=== PATIENT | female | born 1945 | race Caucasian/White ===

== ENCOUNTER 2017-03-24 06:15 | Day surgery (SDC) | payer MEDICARE, BC ==
[2017-03-17 16:02] VITALS: BMI 27.7
[~2017-03-24 06:15] MED LIST: LACTATED RINGERS 1,000 ML IV SCH
[2017-03-24] MEDS: PHENYLEPHRINE 10% OPHTH DROPS 5 ML BTL OP ONE ×3 (06:21→06:33)
[2017-03-24] MEDS: CYCLOPENTOLATE 1% OPHTH SOLN 2 ML BTL OP ONE ×3 (06:23→06:35)
[2017-03-24] MEDS: KETOROLAC 0.5% OPHTH DROPS 5 ML BTL OP ONE ×3 (06:25→06:38)
[2017-03-24 06:38] VITALS: RESP 16; TEMP 97.9
[2017-03-24] MEDS ORDERED: LIDOCAINE 1% 20 ML VIAL (10MG/ML) FOR IV START INTRADERMA ONE (06:50)
[2017-03-24] MEDS ORDERED: PROPOFOL 10 MG/ML 20 ML VIAL IV ONE (07:28)
[2017-03-24] MEDS ORDERED: BALANCED SALT IRRIG SOLN COMB2 15 ML IRRIG.SOLN IRRIGATION ONE (07:39)
[2017-03-24] MEDS ORDERED: HYALURONATE SODIUM INTRAOCULAR 1 EACH SYRINGE (10MG/ML) INTRAOCULA ONE (07:40)
[2017-03-24] MEDS ORDERED: EPINEPHrine (PF) 0.5 ML in BALANCED SALT IRRIG SOLN COMB2 500 ML IRRIGATION ONE (07:41)
[2017-03-24] MEDS ORDERED: TIMOLOL 0.5% OPHTH SOLN (PF) 0.2 ML DROPERETTE LEFT EYE ONE (07:42)
[2017-03-24 08:16] VITALS: BP 155/85; PULSE 64
--- NOTE | 2017-03-24 08:22 | P.OP ---
Date of Procedure: 03/24/17 Procedure(s) Performed: PREOPERATIVE DIAGNOSIS: Cataract, left eye. POSTOPERATIVE DIAGNOSIS: Cataract, left eye. OPERATION: Phacoemulsification cataract, left eye. DESCRIPTION OF PROCEDURE: The patient was taken to the preoperative holding area. Intravenous Propofol was given so as to bring about adequate sedation. The following mixture was given for local anesthesia: 5 mL of 2% lidocaine, 5 mL of 0.75% Marcaine, and 1 mL of Wydase. Approximately 4 mL was injected in the retrobulbar space of the surgical eye. Additional 1 mL was then directed to the temporal area of the surgical eye. This was performed to allow adequate neurological block of the facial muscles. The patient was revived and then taken into the operative room. The patient was prepped and draped in the usual sterile manner for the operative eye. A lid speculum was put into position. The conjunctiva was resected back from the limbus in the 12 o'clock position. Bleeding was controlled with electrocautery. A #69 blade was then used and a half-thickness scleral incision approximately 1-mm posterior to the limbus was made on bare sclera. This was shelved in the clear cornea using a crescent knife. Next a 15-degree blade was used to make a stab incision at the 3 o' clock position at the corneolimbal interface. Keratome blade was then used and the superior wound was extended into the anterior chamber. Viscoelastic was injected into the anterior chamber and to maintain its form. Next, a cystotome was used and a continuous anterior capsulotomy was made without difficulty. Hydrodissection using a blunt cannula and BSS was performed. Phaco probe was then employed and a groove extending from 12 to 6 o'clock in the lens was created. A Juliano wand was used through the stab incision so as to perform a divide and conquer technique. Next an irrigation aspiration probe was utilized and any residual cortex was removed from the eye. Again, viscoelastic was injected into the anterior chamber. An Carlos posterior chamber lens implant was placed in the cartridge and injected into the anterior chamber without difficulty. The SinMT DIGITAL MEDIAey hook was utilized to spin the lens into position and this was again performed without any difficulty. The irrigation and aspiration probe was again employed and any residual viscoelastic was removed from the eye. Then BSS was injected into the limbal stab incision and the anterior chamber re-inflated. The conjunctiva was reapproximated using electrocautery. One drop of 0.25% Timoptic was placed over the corneal along with TobraDex ophthalmic ointment. Two sterile patches and a Peter eye shield were taped into position. The patient was transported to the recovery room in stable condition. Pathology: none sent Condition: stable Disposition: same day
[2017-03-24] MEDS ORDERED: BUPIVACAINE (PF) 0.75% 5 ML, LIDOCAINE 4% (PF) 5 ML, HYALURONIDASE, HUMAN RECOMB 150 UNIT MISCELLANE ONE ×3 (23:00)
[2017-03-24] MEDS ORDERED: TIMOLOL 0.5% OPHTH SOLN (PF) 0.2 ML DROPERETTE OP ONE (23:00)
[2017-03-24] MEDS ORDERED: GENTAMICIN/PREDNISOL AC OPHTH OINT 3.5GM OPHTHALMIC ONE (23:00)
== END 2017-03-24 08:39 | disposition home or self-care (01) ==
LOC: OR 06:15
PROVIDERS: ATTEND Ophthalmology
DX: H26.9 Unspecified cataract (principal); I10 Essential (primary) hypertension; E78.5 Hyperlipidemia, unspecified; K21.9 Gastro-esophageal reflux disease without esophagitis; Z88.1 Allergy status to other antibiotic agents; Z88.2 Allergy status to sulfonamides; Z79.899 Other long term (current) drug therapy
CPT/HCPCS: 66984; V2632; J2001; J3470; J0171; J2704

== ENCOUNTER → 2017-04-13 | Outpatient (CLI) | payer MEDICARE, BC ==
--- NOTE | 2017-04-15 11:06 | MM ---
Reason for exam: screening (asymptomatic). Last mammogram was performed 1 year ago. History: Patient is postmenopausal. Family history of premenopausal breast cancer in mother. 2 excisional biopsies of the left breast. Excisional biopsy of the right breast. Took estrogen for 18 years. Physical Findings: A clinical breast exam by your physician is recommended on an annual basis and results should be correlated with mammographic findings. MG 3D Screening Mammo W/Cad Bilateral CC and MLO view(s) were taken. Prior study comparison: April 01, 2016, bilateral MG 3d screening mammo w/cad. March 26, 2015, bilateral MG screening mammo w CAD. There are scattered fibroglandular densities. No significant changes when compared with prior studies. ASSESSMENT: Benign, BI-RAD 2 RECOMMENDATION: Routine screening mammogram of both breasts in 1 year.
== END | disposition home or self-care (01) ==
LOC: RADMAMWWP 09:40
PROVIDERS: ATTEND Internal Medicine
DX: Z12.31 Encounter for screening mammogram for malignant neoplasm of breast (principal)
CPT/HCPCS: 77063; G0202

== ENCOUNTER 2017-07-21 11:20 | Emergency (ER) | payer MEDICARE, BC ==
--- NOTE | 2017-07-21 12:04 | ED ---
General Adult HPI - General Chief complaint: Abdominal Pain Stated complaint: constipation Time Seen by Provider: 07/21/17 11:35 Source: patient, RN notes reviewed Mode of arrival: ambulatory Limitations: no limitations - History of Present Illness Initial comments: 72-year-old female presents to the emergency department with a chief complaint of constipation. She states that she is on a new medication that is causing a lot of dry mouth and drying out her body. She states that she has had a hard time having a bowel movement due to the dryness. She states that now she is constipated. She states she will bowel movement today which feels like she has to go but she just can't get it out. She states that she has had no abdominal upper pain with this. She denies any fever chills any cough cold Raynaud's. She states she just needs help alleviate in for constipation. Patient denies any other symptoms at this time. Patient denies any recent fever, chills, shortness of breath, chest pain, back pain, abdominal pain, nausea vomiting, numbness or tingling, dysuria or hematuria, diarrhea, headaches or visual changes, or any other current symptoms. - Related Data Home Medications Medication Instructions Recorded Confirmed ALPRAZolam [Xanax] 0.5 mg PO DAILY PRN 03/17/17 07/21/17 Biotin 5 mg PO DAILY 03/17/17 07/21/17 Cholecalciferol [Vitamin D3] 1,000 unit PO DAILY 03/17/17 07/21/17 Gabapentin [Neurontin] 100 mg PO DAILY 03/17/17 07/21/17 L.acidoph,Paracasei, B.lactis 1 cap PO DAILY 03/17/17 07/21/17 [Probiotic] Losartan/Hydrochlorothiazide 1 tab PO DAILY 03/17/17 07/21/17 [Losartan-Hctz 100-25 mg Tab] Meloxicam [Meloxicam] 15 mg PO DAILY 03/17/17 07/21/17 Omeprazole [Omeprazole] 40 mg PO DAILY 03/17/17 07/21/17 Ranitidine HCl [Zantac] 150 mg PO DAILY PRN 03/17/17 07/21/17 Sertraline HCl [Zoloft] 50 mg PO DAILY 03/17/17 07/21/17 Simvastatin [Zocor] 20 mg PO HS 03/17/17 07/21/17 amLODIPine [Norvasc] 5 mg PO DAILY 03/17/17 07/21/17 traMADol HCl [Ultram] 50 mg PO DAILY 03/17/17 07/21/17 Allergies Allergy/AdvReac Type Severity Reaction Status Date / Time ciprofloxacin [From Cipro] Allergy Dyspnea Verified 07/21/17 12:00 ciprofloxacin HCl Allergy Dyspnea Verified 07/21/17 12:00 [From Cipro] Sulfa (Sulfonamide Allergy Rash/Hives Verified 07/21/17 12:00 Antibiotics) Review of Systems ROS Statement: Those systems with pertinent positive or pertinent negative responses have been documented in the HPI. ROS Other: All systems not noted in ROS Statement are negative. Past Medical History Past Medical History: GERD/Reflux, Hyperlipidemia, Hypertension, Osteoarthritis (OA) Additional Past Medical History / Comment(s): Back pain, History of Any Multi-Drug Resistant Organisms: None Reported Past Surgical History: Breast Surgery, Cholecystectomy, Hysterectomy Additional Past Surgical History / Comment(s): Cataract surgery L eye in 2016, Cysts removed from breasts-benign. Pain procedures. Past Anesthesia/Blood Transfusion Reactions: No Reported Reaction Past Psychological History: Anxiety Smoking Status: Never smoker - Past Family History Mother Family Medical History: Cancer Father Family Medical History: Cancer General Exam - General Exam Comments Initial Comments: General: The patient is awake and alert, in no distress, and does not appear acutely ill. Eye: Pupils are equal, round and reactive to light, extra-ocular movements are intact; there is normal conjunctiva bilaterally. No signs of icterus. Ears, nose, mouth and throat: There are moist mucous membranes and no oral lesions. Neck: The neck is supple, there is no tenderness. Cardiovascular: There is a regular rate and rhythm. No murmur, rub or gallop is appreciated. Respiratory: Lungs are clear to auscultation, respirations are non-labored, breath sounds are equal. No wheezes, stridor, rales, or rhonchi. Gastrointestinal: Soft, non-distended, non-tender abdomen without masses or organomegaly noted. There is no rebound or guarding present. No CVA tenderness. Bowel sounds are unremarkable. Back: There is no tenderness to palpation in the midline. There is no obvious deformity. No rashes noted. Musculoskeletal: Normal ROM, no tenderness, There is no pedal edema. There is no calf tenderness or swelling. Sensation intact. Pulses equal bilaterally 2+. Neurological: CN II-XII intact, There are no obvious motor or sensory deficits. Coordination appears grossly intact. Speech is normal. Skin: Skin is warm and dry and no rashes or lesions are noted. Psychiatric: Cooperative, appropriate mood & affect, normal judgment. Limitations: no limitations Course Vital Signs 07/21/17 11:38 Temperature 98.2 F Pulse Rate 77 Respiratory 18 Rate Blood Pressure 169/91 O2 Sat by Pulse 95 Oximetry Medical Decision Making - Medical Decision Making 72-year-old female presents for constipation. This time x-rays reviewed that does show mild ileus. This time patient has been passing gas and is having bowel movements but very small prior to arrival. Patient was given an enema and she did have success and states that she is feeling much better and her pain has completely subsided. At this time we did discuss return parameters. We did discuss follow-up. We discussed all the patient's questions. She states that she understood and she is comfortable discharged home. All of her questions have been answered. This time patient will be discharged. Disposition Clinical Impression: Constipation, Ileus Disposition: HOME SELF-CARE Condition: Stable Instructions: Ileus (ED), Constipation (ED) Additional Instructions: Please use medication as discussed. Please follow up with family doctor if symptoms have not improved over the next two days. Please return to the emergency room if your symptoms increase or worsen or for any other concerns. Referrals: Filiberto Guzman MD [Primary Care Provider] - 1-2 days Time of Disposition: 13:51
--- NOTE | 2017-07-21 12:16 | XR ---
EXAMINATION TYPE: XR abdomen 2V DATE OF EXAM: 07/21/2017 HISTORY: Pain. Technique: 2 views of the abdomen are submitted. Comparison: None. Findings: There is no convincing evidence of pneumoperitoneum. Distention of the transverse colon measuring up to 7.2 cm. Scattered air-fluid level seen. The findin gs are nonspecific and may reflect ileus. No mass effects are noted. No renal calcifications are identified. Curvature lumbar spine with associated degenerative change. IMPRESSION: 1. Nonspecific bowel gas pattern . Correlate for possible ileus. Progress studies are advised.
[2017-07-21 14:13] VITALS: BP 123/71; PULSE 89; RESP 16; TEMP 97
== END 2017-07-21 14:13 | disposition home or self-care (01) ==
LOC: EC 11:20
DX: K59.00 Constipation, unspecified (principal); K56.7 Ileus, unspecified; E78.5 Hyperlipidemia, unspecified; I10 Essential (primary) hypertension; K21.9 Gastro-esophageal reflux disease without esophagitis; M19.90 Unspecified osteoarthritis, unspecified site; F41.9 Anxiety disorder, unspecified; Z90.49 Acquired absence of other specified parts of digestive tract; Z88.1 Allergy status to other antibiotic agents; Z88.2 Allergy status to sulfonamides; Z79.1 Long term (current) use of non-steroidal anti-inflammatories (NSAID); Z79.891 Long term (current) use of opiate analgesic; Z79.899 Other long term (current) drug therapy
CPT/HCPCS: 74019; 99283

== ENCOUNTER 2017-07-24 11:19 | Inpatient (IN) | payer MEDICARE, BC ==
[2017-07-24] MEDS ORDERED: MORPHINE SULFATE 4 MG/ML SYRINGE IVP STA (15:41)
[2017-07-24] MEDS ORDERED: RX INFO: IV CONTRAST WAS GIVEN 1 EACH MISC MISCELLANE PRN (15:41)
[2017-07-24] MEDS ORDERED: ONDANSETRON 4 MG/2 ML VIAL IVP STA (15:41)
[2017-07-24] MEDS ORDERED: SODIUM CHLORIDE 0.9% 500 ML IV STA (15:41)
--- NOTE | 2017-07-24 16:15 | ED ---
Abdominal Pain HPI - General Chief Complaint: Abdominal Pain Stated Complaint: POSS BOWEL BLOCKAGE Time Seen by Provider: 07/24/17 15:21 Source: patient, RN notes reviewed Mode of arrival: wheelchair Limitations: no limitations - History of Present Illness Initial Comments: This a 72-year-old female presents emergency Department chief complaint severe abdominal pain, no bowel movement. Patient states that she's not had a bowel movement in several days. She states she is here 2 days ago was given an enema and states that she had minimal output states that she went home has been continue take laxatives with no relief. Patient states that she's having worsening mid to lower abdominal pain. Patient states that she believes this started from taking her medication given to her by her urologist for incontinence. Patient states that she discontinue but she has not had any relief. Patient had prior abdominal surgeries several the past. She also initially had a pessary placed by Dr. Herrera yesterday. Patient denies fevers, chills, back pain, chest pain, shortness breath, nausea vomiting. - Related Data Home Medications Medication Instructions Recorded Confirmed ALPRAZolam [Xanax] 0.5 mg PO DAILY PRN 03/17/17 07/24/17 Biotin 5 mg PO DAILY 03/17/17 07/24/17 Cholecalciferol [Vitamin D3] 1,000 unit PO DAILY 03/17/17 07/24/17 Gabapentin [Neurontin] 100 mg PO BID 03/17/17 07/24/17 L.acidoph,Paracasei, B.lactis 1 cap PO DAILY 03/17/17 07/24/17 [Probiotic] Losartan/Hydrochlorothiazide 1 tab PO DAILY 03/17/17 07/24/17 [Losartan-Hctz 100-25 mg Tab] Meloxicam [Meloxicam] 15 mg PO DAILY 03/17/17 07/24/17 Omeprazole [Omeprazole] 40 mg PO DAILY 03/17/17 07/24/17 Sertraline HCl [Zoloft] 50 mg PO DAILY 03/17/17 07/24/17 Simvastatin [Zocor] 20 mg PO HS 03/17/17 07/24/17 amLODIPine [Norvasc] 5 mg PO DAILY 03/17/17 07/24/17 traMADol HCl [Ultram] 50 mg PO TID PRN 03/17/17 07/24/17 Allergies Allergy/AdvReac Type Severity Reaction Status Date / Time ciprofloxacin [From Cipro] Allergy Dyspnea Verified 07/24/17 15:12 ciprofloxacin HCl Allergy Dyspnea Verified 07/24/17 15:12 [From Cipro] Sulfa (Sulfonamide Allergy Rash/Hives Verified 07/24/17 15:12 Antibiotics) Review of Systems ROS Statement: Those systems with pertinent positive or pertinent negative responses have been documented in the HPI. ROS Other: All systems not noted in ROS Statement are negative. Past Medical History Past Medical History: GERD/Reflux, Hyperlipidemia, Hypertension, Osteoarthritis (OA) Additional Past Medical History / Comment(s): Back pain, History of Any Multi-Drug Resistant Organisms: None Reported Past Surgical History: Breast Surgery, Cholecystectomy, Hysterectomy Additional Past Surgical History / Comment(s): Cataract surgery L eye in 2016, Cysts removed from breasts-benign. Pain procedures. Past Anesthesia/Blood Transfusion Reactions: No Reported Reaction Past Psychological History: Anxiety Smoking Status: Never smoker - Past Family History Mother Family Medical History: Cancer Father Family Medical History: Cancer General Exam Limitations: no limitations General appearance: alert, in no apparent distress Head exam: Present: atraumatic, normocephalic, normal inspection Respiratory exam: Present: normal lung sounds bilaterally. Absent: respiratory distress, wheezes, rales, rhonchi, stridor Cardiovascular Exam: Present: regular rate, normal rhythm, normal heart sounds. Absent: systolic murmur, diastolic murmur, rubs, gallop, clicks GI/Abdominal exam: Present: soft, tenderness (Tenderness in mid to lower abdomen ), normal bowel sounds. Absent: distended, guarding, rebound, rigid Back exam: Absent: CVA tenderness (R), CVA tenderness (L) Skin exam: Present: warm, dry, intact, normal color. Absent: rash Course Vital Signs 07/24/17 07/24/17 07/24/17 11:43 15:17 15:19 Temperature 98 F Pulse Rate 93 90 Respiratory 18 16 Rate Blood Pressure 164/83 182/98 172/99 O2 Sat by Pulse 98 97 Oximetry Medical Decision Making - Lab Data Result diagrams: 07/24/17 16:22 07/24/17 16:22 Lab Results 07/24/17 07/24/17 07/24/17 Range/Units 16:22 16:22 16:22 WBC 9.1 (3.8-10.6) k/uL RBC 4.56 (3.80-5.40) m/uL Hgb 13.2 (11.4-16.0) gm/dL Hct 41.0 (34.0-46.0) % MCV 90.1 (80.0-100.0) fL MCH 28.9 (25.0-35.0) pg MCHC 32.1 (31.0-37.0) g/dL RDW 13.2 (11.5-15.5) % Plt Count 493 H (150-450) k/uL Neutrophils % 77 % Lymphocytes % 15 % Monocytes % 4 % Eosinophils % 2 % Basophils % 1 % Neutrophils # 7.1 (1.3-7.7) k/uL Lymphocytes # 1.4 (1.0-4.8) k/uL Monocytes # 0.4 (0-1.0) k/uL Eosinophils # 0.2 (0-0.7) k/uL Basophils # 0.0 (0-0.2) k/uL PT (9.0-12.0) sec INR (<1.2) APTT (22.0-30.0) sec Sodium 135 L (137-145) mmol/L Potassium 3.9 (3.5-5.1) mmol/L Chloride 95 L (98-107) mmol/L Carbon Dioxide 29 (22-30) mmol/L Anion Gap 11 mmol/L BUN 27 H (7-17) mg/dL Creatinine 1.10 H (0.52-1.04) mg/dL Est GFR (MDRD) Af Amer 59 (>60 ml/min/1.73 sqM) Est GFR (MDRD) Non-Af 49 (>60 ml/min/1.73 sqM) Glucose 107 H (74-99) mg/dL Plasma Lactic Acid Jared 0.9 (0.7-2.0) mmol/L Calcium 9.6 (8.4-10.2) mg/dL Total Bilirubin 0.5 (0.2-1.3) mg/dL AST 32 (14-36) U/L ALT 29 (9-52) U/L Alkaline Phosphatase 113 (38-126) U/L Total Protein 7.0 (6.3-8.2) g/dL Albumin 3.9 (3.5-5.0) g/dL Amylase 35 (30-110) U/L Lipase 27 (23-300) U/L Urine Color Urine Appearance (Clear) Urine pH (5.0-8.0) Ur Specific [place] (1.001-1.035) Urine Protein (Negative) Urine Glucose (UA) (Negative) Urine Ketones (Negative) Urine Blood (Negative) Urine Nitrite (Negative) Urine Bilirubin (Negative) Urine Urobilinogen (<2.0) mg/dL Ur Leukocyte Esterase (Negative) Urine RBC (0-5) /hpf Urine WBC (0-5) /hpf Ur Squamous Epith Cells (0-4) /hpf Urine Bacteria (None) /hpf Urine Mucus (None) /hpf Urine Yeast (Budding) (None) /hpf 07/24/17 07/24/17 Range/Units 16:22 16:42 WBC (3.8-10.6) k/uL RBC (3.80-5.40) m/uL Hgb (11.4-16.0) gm/dL Hct (34.0-46.0) % MCV (80.0-100.0) fL MCH (25.0-35.0) pg MCHC (31.0-37.0) g/dL RDW (11.5-15.5) % Plt Count (150-450) k/uL Neutrophils % % Lymphocytes % % Monocytes % % Eosinophils % % Basophils % % Neutrophils # (1.3-7.7) k/uL Lymphocytes # (1.0-4.8) k/uL Monocytes # (0-1.0) k/uL Eosinophils # (0-0.7) k/uL Basophils # (0-0.2) k/uL PT 9.8 (9.0-12.0) sec INR 1.0 (<1.2) APTT 23.7 (22.0-30.0) sec Sodium (137-145) mmol/L Potassium (3.5-5.1) mmol/L Chloride (98-107) mmol/L Carbon Dioxide (22-30) mmol/L Anion Gap mmol/L BUN (7-17) mg/dL Creatinine (0.52-1.04) mg/dL Est GFR (MDRD) Af Amer (>60 ml/min/1.73 sqM) Est GFR (MDRD) Non-Af (>60 ml/min/1.73 sqM) Glucose (74-99) mg/dL Plasma Lactic Acid Jared (0.7-2.0) mmol/L Calcium (8.4-10.2) mg/dL Total Bilirubin (0.2-1.3) mg/dL AST (14-36) U/L ALT (9-52) U/L Alkaline Phosphatase (38-126) U/L Total Protein (6.3-8.2) g/dL Albumin (3.5-5.0) g/dL Amylase (30-110) U/L Lipase (23-300) U/L Urine Color Light Yellow Urine Appearance Cloudy H (Clear) Urine pH 7.5 (5.0-8.0) Ur Specific [place] 1.006 (1.001-1.035) Urine Protein Trace H (Negative) Urine Glucose (UA) Negative (Negative) Urine Ketones Negative (Negative) Urine Blood Small H (Negative) Urine Nitrite Negative (Negative) Urine Bilirubin Negative (Negative) Urine Urobilinogen <2.0 (<2.0) mg/dL Ur Leukocyte Esterase Large H (Negative) Urine RBC 3 (0-5) /hpf Urine WBC 109 H (0-5) /hpf Ur Squamous Epith Cells 1 (0-4) /hpf Urine Bacteria Few H (None) /hpf Urine Mucus Rare H (None) /hpf Urine Yeast (Budding) Occasional H (None) /hpf Disposition Clinical Impression: Ileus, Colonic stricture, Constipation, Abdominal pain, UTI (urinary tract infection) Disposition: ADMITTED IP TO THIS [facility] Condition: Stable Referrals: Filiberto Guzman MD [Primary Care Provider] - 1-2 days
[2017-07-24 16:44] LABS: Albumin 3.9 g/dL (3.5-5.0); Calcium 9.6 mg/dL (8.4-10.2); Potassium 3.9 mmol/L (3.5-5.1); Total Bilirubin 0.5 mg/dL (0.2-1.3)
[2017-07-24 16:48] LABS: Partial Thromboplastin Time 23.7 sec (22.0-30.0); Prothrombin Time 9.8 sec (9.0-12.0)
[2017-07-24 16:56] LABS: Appearance,Urine Cloudy (Clear); Bacteria,Urine Few /hpf; Bilirubin,Urine Negative (Negative); Blood,Urine Small (Negative); Budding Yeast,Urine Occasional /hpf; Color,Urine Light Yellow; Glucose,Urine (UA) Negative (Negative); Ketones,Urine Negative (Negative); Leukocyte Esterase,Urine Large (Negative); Mucus,Urine Rare /hpf; Nitrite,Urine Negative (Negative); PH, Urine 7.5 (5.0-8.0); Protein,Urine Trace (Negative); RBC,Urine 3 /hpf (0-5); Specific Gravity,Urine 1.006 (1.001-1.035); Squamous Epithelial Cell,Urine 1 /hpf (0-4); Urobilinogen,Urine <2.0 mg/dL (<2.0); WBC,Urine 109 /hpf (0-5)
[2017-07-24 17:25] LABS: Basophils % (A) 1 %; Eosinophils # (A) 0.2 k/uL (0-0.7); Eosinophils % (A) 2 %; HGB 13.2 gm/dL (11.4-16.0); Lymphocytes # (A) 1.4 k/uL (1.0-4.8); Lymphocytes % (A) 15 %; MCH 28.9 pg (25.0-35.0); MCHC 32.1 g/dL (31.0-37.0); MCV 90.1 fL (80.0-100.0); Mean Platelet Volume 6.5; Monocytes # (A) 0.4 k/uL (0-1.0); Monocytes % (A) 4 %; Neutrophils # (A) 7.1 k/uL (1.3-7.7); Neutrophils % (A) 77 %; Platelet Count 493 k/uL (150-450); RBC 4.56 m/uL (3.80-5.40); RDW 13.2 % (11.5-15.5); WBC 9.1 k/uL (3.8-10.6)
--- NOTE | 2017-07-24 17:59 | CT ---
EXAMINATION TYPE: CT abdomen pelvis w con DATE OF EXAM: 07/24/2017 COMPARISON: 02/21/2013 HISTORY: ABDOMINAL PAIN AND DISTENTION. CT DLP: 1260 mGycm Automated exposure control for dose reduction was used. TECHNIQUE: Helical acquisition of images was performed from the lung bases through the pelvis. CONTRAST: Performed without Oral Contrast and with IV Contrast, patient injected with 80 mL of Visipaque 320. FINDINGS: There is mild scarring or subsegmental atelectasis at the lung bases. There is a moderate-sized hiata l hernia. There is no pericardial effusion. There is no pleural effusion. Liver shows no focal defect. There are small calcified granulomata in the liver and spleen. There is no evidence of pancreatic mass. Bile ducts are not dilated. There are clips from cholecystectomy. There are dilated loops of large bowel with fecal material. There is a transition point at the sigmoi d colon. There are multiple sigmoid diverticula. There is a pessary in the vagina. Bladder distends s moothly. There is no free fluid in the pelvis. Kidneys show satisfactory contrast opacification. There is no hydronephrosis. Ureters are not dilated . Small bowel appears normal. I see no bony destructive process. There are spondylotic changes in the lumbar spine. There is a thoracolumbar levo rotoscoliosis. IMPRESSION: THERE IS DILATED LARGE BOWEL DOWN TO THE JUNCTION OF DESCENDING COLON AND SIGMOID COLON. THERE IS A T RANSITION POINT AND STRICTURE OR MASS LESION OBSTRUCTING THE DESCENDING COLON. TUMOR SHOULD BE CONSID ERED. SIGMOIDOSCOPY IS RECOMMENDED FOR FURTHER EVALUATION. THERE IS SIGMOID DIVERTICULOSIS WITHOUT SI GN OF DIVERTICULITIS. FOLLOW-UP IS RECOMMENDED. MODERATE SIZE HIATAL HERNIA. HIATAL HERNIA IS INCREASED IN SIZE COMPARED TO OLD EXAM.
[2017-07-24] MEDS ORDERED: ONDANSETRON 4 MG/2 ML VIAL IVP PRN (18:21)
[2017-07-24] MEDS ORDERED: NALOXONE 0.4 MG/ML 1 ML VIAL IV PRN (18:21)
[2017-07-24] MEDS ORDERED: cefTRIAXone IN SWFI 1,000 MG/10 ML SYRINGE IVP STA (18:26)
[2017-07-24] MEDS: SODIUM CHLORIDE 0.9% 1,000 ML IV SCH (18:51)
[2017-07-24] MEDS: MORPHINE SULFATE 4 MG/ML SYRINGE IV PRN (18:57)
[2017-07-24 20:20] VITALS: BMI 27.7
--- NOTE | 2017-07-24 20:29 | P.HPIM ---
History of Present Illness H&P Date: 07/24/17 Chief Complaint: Abdominal pain and constipation The patient is a 72-year-old female with a past medical history of essential hypertension, GERD, overactive bladder who presents to the ER with chief complaint of severe intermittent left lower abdominal pain over the last week, with associated constipation difficulty moving her bowels, and intermittent nausea. The patient was seen in the ER 2 days ago and was given an enema is a thought at that time that she had constipation, since then the patient has had minimal bowel movements. The patient has a history of overactive bladder and was started on Detrol, she also recently had her pessary placed by [employer] Dr. Hrerera yesterday, the patient reports frequency and pelvic pressure, she denies any dysuria but reports subjective fevers and chills. She denies any weight loss, but reports poor appetite in the last week. Apparently the patient has a history of colonic polyps and had a colonoscopy [address] Whitfield and was told at that time that she would need a 5 year follow-up. In the ER she had a CT abdomen and pelvis that showed a dilated large bowel to the junction of the descending colon and sigmoid colon with a transition point and stricture or mass lesion obstructing the descending colon. Review of Systems All other 14 point review of systems negative except per HPI Past Medical History Past Medical History: GERD/Reflux, Hyperlipidemia, Hypertension, Osteoarthritis (OA) Additional Past Medical History / Comment(s): Back pain, History of Any Multi-Drug Resistant Organisms: None Reported Past Surgical History: Breast Surgery, Cholecystectomy, Hysterectomy Additional Past Surgical History / Comment(s): Cataract surgery L eye in 2016, Cysts removed from breasts-benign. Pain procedures. Past Anesthesia/Blood Transfusion Reactions: No Reported Reaction Past Psychological History: Anxiety Smoking Status: Never smoker - Past Family History Mother Family Medical History: Cancer Father Family Medical History: Cancer Medications and Allergies Home Medications Medication Instructions Recorded Confirmed Type ALPRAZolam [Xanax] 0.5 mg PO DAILY PRN 03/17/17 07/24/17 History Biotin 5 mg PO DAILY 03/17/17 07/24/17 History Cholecalciferol [Vitamin D3] 1,000 unit PO DAILY 03/17/17 07/24/17 History Gabapentin [Neurontin] 100 mg PO BID 03/17/17 07/24/17 History L.acidoph,Paracasei, B.lactis 1 cap PO DAILY 03/17/17 07/24/17 History [Probiotic] Losartan/Hydrochlorothiazide 1 tab PO DAILY 03/17/17 07/24/17 History [Losartan-Hctz 100-25 mg Tab] Meloxicam [Meloxicam] 15 mg PO DAILY 03/17/17 07/24/17 History Omeprazole [Omeprazole] 40 mg PO DAILY 03/17/17 07/24/17 History Sertraline HCl [Zoloft] 50 mg PO DAILY 03/17/17 07/24/17 History Simvastatin [Zocor] 20 mg PO HS 03/17/17 07/24/17 History amLODIPine [Norvasc] 5 mg PO DAILY 03/17/17 07/24/17 History traMADol HCl [Ultram] 50 mg PO TID PRN 03/17/17 07/24/17 History Allergies Allergy/AdvReac Type Severity Reaction Status Date / Time ciprofloxacin [From Cipro] Allergy Dyspnea Verified 07/24/17 20:22 ciprofloxacin HCl Allergy Dyspnea Verified 07/24/17 20:22 [From Cipro] Sulfa (Sulfonamide Allergy Rash/Hives Verified 07/24/17 20:22 Antibiotics) Physical Exam Vitals: Vital Signs Temp Pulse Pulse Resp BP BP Pulse Ox 07/24/17 19:33 98.3 F 90 20 137/88 95 07/24/17 18:33 88 16 160/98 97 07/24/17 15:19 172/99 07/24/17 15:17 90 16 182/98 97 07/24/17 11:43 98 F 93 18 164/83 98 Intake and Output 07/24/17 07/24/17 07/24/17 06:59 14:59 22:59 Other: Weight 64.41 kg Patient Weight 07/25/17 06:59 Weight 64.41 kg Constitutional: No acute distress, conversant, pleasant Eyes: Anicteric sclerae, moist conjunctiva, no lid-lag, PERRLA ENMT: NC/AT,Oropharynx clear, no erythema, exudates Neck:Supple, FROM, no masses, or JVD, No carotid bruits; No thyromegaly Lungs: Clear to auscultation, Clear to percussion, Normal respiratory effort, no accessory muscle use Cardiovascular: Heart regular in rate and rhythm, No murmurs, gallops, or rubs no peripheral edema Abdominal: Soft tender to deep palpation in the left lower quadrant, non distended, no guarding, no rebound or rigidity, Normoactive bowel sounds No hepatomegaly, No splenomegaly, No palpable mass No abdominal wall hernia noted Skin: Normal temperature, tone, texture, turgor, No induration No subcutaneous nodules, No rash, lesions, No ulcers Extremities:No digital cyanosis No clubbing, Pedal pulses intact and symmetrical Radial pulses intact and symmetrical Normal gait and station, No calf tenderness Psychiatric: Alert and oriented to person, place and time, Appropriate affect Intact judgement Neuro: Muscles Strength 5/5 in all 4 extremities, Sensation to light touch grossly present throughout, Cranial nerves II-XII grossly intact. No focal sensory deficits Results CBC & Chem 7: 07/24/17 16:22 07/24/17 16:22 Labs: Abnormal Lab Results - Last 24 Hours (Table) 07/24/17 07/24/17 07/24/17 Range/Units 16:22 16:22 16:42 Plt Count 493 H (150-450) k/uL Sodium 135 L (137-145) mmol/L Chloride 95 L (98-107) mmol/L BUN 27 H (7-17) mg/dL Creatinine 1.10 H (0.52-1.04) mg/dL Glucose 107 H (74-99) mg/dL Urine Appearance Cloudy H (Clear) Urine Protein Trace H (Negative) Urine Blood Small H (Negative) Ur Leukocyte Esterase Large H (Negative) Urine WBC 109 H (0-5) /hpf Urine Bacteria Few H (None) /hpf Urine Mucus Rare H (None) /hpf Urine Yeast (Budding) Occasional H (None) /hpf Assessment and Plan Assessment: Code status: FULL CODE Chronic medical conditions Essential hypertension Anxiety GERD Overactive bladder CKD Stage III (1) Small bowel obstruction Current Visit: Yes Status: Acute Code(s): K56.609 - UNSP INTESTNL OBST, UNSP TO PARTIAL VERSUS COMPLETE OBST SNOMED Code(s): 217523033 (2) Abdominal pain Current Visit: Yes Status: Acute Code(s): R10.9 - UNSPECIFIED ABDOMINAL PAIN SNOMED Code(s): 30857557 (3) Hyponatremia Current Visit: Yes Status: Acute Code(s): E87.1 - HYPO-OSMOLALITY AND HYPONATREMIA SNOMED Code(s): 76632164 (4) UTI (urinary tract infection) Current Visit: Yes Status: Acute Code(s): N39.0 - URINARY TRACT INFECTION, SITE NOT SPECIFIED SNOMED Code(s): 20422673 (5) Colonic stricture Current Visit: Yes Status: Acute Code(s): K56.699 - OTHER INTESTNL OBST UNSP TO PARTIAL VERSUS COMPLETE OBST SNOMED Code(s): 4247430 Plan: The patient is admitted anticipate a greater than 2 midnight stay with concern for partial small bowel obstruction after presenting with severe abdominal pain with CT findings concerning for small bowel obstruction with a transition point and a possible mass lesion obstructing the descending colon. Will consult general surgery, place patient on clear liquid diet, supportive management with IV fluids should resolve the mild hyponatremia and IV antiemetics and pain medication IV morphine as needed. We'll obtain urine cultures and continue with Rocephin to treat her urinary tract infection. We'll follow-up recommendations and continue to follow her clinical course
[2017-07-25] MEDS: MORPHINE SULFATE 4 MG/ML SYRINGE IV PRN ×4 (00:29→13:20)
[2017-07-25] MEDS ORDERED: hydrALAZINE HCL 20 MG/ML 1 ML VIAL IVP PRN (07:17)
[2017-07-25] MEDS: SODIUM CHLORIDE 0.9% 1,000 ML IV SCH ×2 (07:19→21:18)
[2017-07-25] MEDS ORDERED: PANTOPRAZOLE 40 MG TABLET PO SCH (07:30)
--- NOTE | 2017-07-25 08:16 | P.PN ---
Subjective Progress Note Date: 07/25/17 Principal diagnosis: Constipation Ms. Ingram is a 72-year-old female with a past medical history of essential hypertension, GERD, overactive bladder, and prior colon polyps 2 years ago who presented to the ER with chief complaint of left lower quadrant pain and constipation. In the ER she underwent an extensive evaluation. On arrival she was found to be slightly hypertensive. Laboratory analysis showed a slightly elevated creatinine of 1.1 which appears to be her baseline, thrombocytosis, and slightly low sodium of 135. She was also found to have a urinary tract infection. She was started on Rocephin and IV fluids. She was given pain control and antiemetics. CT of the abdomen and pelvis was obtained which showed dilated large bowel down to the junction of the descending colon and sigmoid colon with a transition point in stricture or mass lesion in the descending colon. Surgery was consulted. Arrangements were made for admission for large bowel obstruction. Patient seen and examined at bedside. She complains of continued left lower quadrant pain. She states that the morphine is wearing off about a half an hour before it is due. She is also having intermittent nausea and abdominal cramping but no vomiting. She states that her pain is not improved compared to yesterday. She has not had a bowel movement or passed any gas. She denies any chest pain or shortness of breath. Objective - Vital Signs Vital signs: Vital Signs Temp 98.2 F 07/25/17 00:26 Pulse 89 07/25/17 00:26 Resp 18 07/25/17 00:26 BP 158/86 07/25/17 00:26 Pulse Ox 95 07/25/17 00:26 Intake & Output 07/24/17 07/25/17 07/25/17 18:59 06:59 18:59 Weight 64.41 kg 64.41 kg Other: Voiding Method Toilet # Voids 1 - Exam General: non toxic, mild distress, appears at stated age Derm: warm, dry Head: atraumatic, normocephalic, symmetric Eyes: EOMI, no lid lag, anicteric sclera Mouth: no lip lesion, mucus membranes moist Cardiovascular: S1S2 reg, no murmur, positive posterior tibial pulse bilateral, Lungs: CTA bilateral, no rhonchi, no rales , no accessory muscle use Abdominal: Hyperactive bowel sounds soft, tender to palpation left lower quadrant, no guarding, no appreciable organomegaly Ext: no gross muscle atrophy, no edema, no contractures Neuro: CN II-XI grossly intact, no focal neuro deficits Psych: Alert, oriented, appropriate affect - Labs CBC & Chem 7: 07/24/17 16:22 07/24/17 16:22 Labs: Abnormal Lab Results - Last 24 Hours (Table) 07/24/17 07/24/17 07/24/17 Range/Units 16:22 16:22 16:42 Plt Count 493 H (150-450) k/uL Sodium 135 L (137-145) mmol/L Chloride 95 L (98-107) mmol/L BUN 27 H (7-17) mg/dL Creatinine 1.10 H (0.52-1.04) mg/dL Glucose 107 H (74-99) mg/dL Urine Appearance Cloudy H (Clear) Urine Protein Trace H (Negative) Urine Blood Small H (Negative) Ur Leukocyte Esterase Large H (Negative) Urine WBC 109 H (0-5) /hpf Urine Bacteria Few H (None) /hpf Urine Mucus Rare H (None) /hpf Urine Yeast (Budding) Occasional H (None) /hpf Microbiology - Last 24 Hours (Table) 07/24/17 16:42 Urine Culture - Preliminary Urine,Voided Assessment and Plan Assessment: Colonic obstruction with possible mass lesion and history of colon polyps -Nothing by mouth -Morphine -Zofran -Await surgical consultation -Not having persistent nausea or vomiting to require NG tube, but patient told if this occurs we will likely need a nasogastric tube placed. UTI, present on admission, not catheter associated -Rocephin -Await urine cultures Hypertension with urgency on arrival -When necessary hydralazine -Hold all oral medications Chronic kidney disease stage III with baseline creatinine 1.1 -Creatinine currently at baseline -Avoid additional nephrotoxic agents Thrombocytosis, likely reactive -Repeat CBC in a.m. GERD -PPI DVT prophylaxis: Discontinue chemical anticoagulation in case surgical procedure as needed, SCDs Discussed with: Patient, nursing Anticipated discharge: 3-[address]: home with home health vs SNF A total of 35 minutes was spent on the care of this complex patient more than 50 % of the time was spent in counseling and care coordination.
[2017-07-25] MEDS ORDERED: amLODIPine 5 MG TAB PO SCH (09:00)
[2017-07-25] MEDS ORDERED: LOSARTAN-HCTZ 50-12.5 MG 1 EACH TAB PO SCH (09:00)
[2017-07-25] MEDS ORDERED: ENOXAPARIN 40 MG/0.4 ML SYRINGE SQ SCH (09:00)
[2017-07-25] MEDS: PANTOPRAZOLE 40 MG/10 ML VIAL IVP SCH (13:07)
--- NOTE | 2017-07-25 13:41 | P.GSCN ---
History of Present Illness Consult date: 07/25/17 History of present illness: 72-year-old female presented to the emergency department with complaints of abdominal pain. She states that she has not been able to have a bowel movement for approximately 1 week and has begun to have some nausea. She complains of one episode of emesis over the last week. She states that she did at 10 to the emergency department previously in the week and was given an enema with a very small bowel movement resulting. On further workup during this visit, a CT of the abdomen and pelvis was performed. Concern for a distal large bowel obstruction is noted for a possible colonic mass versus stricture. The patient does state that she has a history of multiple diverticulitis episodes. Her last colonoscopy was approximately 2 years ago in which polyps were found and removed. She currently denies any nausea. She does complain of abdominal pain in the periumbilical area. She is not on any anticoagulation. Her only previous surgical history and the abdomen is a hysterectomy. She has no additional complaints at this time. Review of Systems All systems: negative Past Medical History Past Medical History: GERD/Reflux, Hyperlipidemia, Hypertension, Osteoarthritis (OA) Additional Past Medical History / Comment(s): Back pain, History of Any Multi-Drug Resistant Organisms: None Reported Past Surgical History: Breast Surgery, Cholecystectomy, Hysterectomy Additional Past Surgical History / Comment(s): Cataract surgery L eye in 2016, Cysts removed from breasts-benign. Pain procedures. Past Anesthesia/Blood Transfusion Reactions: No Reported Reaction Past Psychological History: Anxiety Smoking Status: Never smoker - Past Family History Mother Family Medical History: Cancer Father Family Medical History: Cancer Medications and Allergies Home Medications Medication Instructions Recorded Confirmed Type ALPRAZolam [Xanax] 0.5 mg PO DAILY PRN 03/17/17 07/24/17 History Cholecalciferol [Vitamin D3] 1,000 unit PO DAILY 03/17/17 07/24/17 History L.acidoph,Paracasei, B.lactis 1 cap PO DAILY 03/17/17 07/24/17 History [Probiotic] Losartan/Hydrochlorothiazide 1 tab PO DAILY 03/17/17 07/24/17 History [Losartan-Hctz 100-25 mg Tab] Meloxicam [Meloxicam] 15 mg PO DAILY 03/17/17 07/24/17 History Omeprazole [Omeprazole] 40 mg PO DAILY 03/17/17 07/24/17 History RX: Biotin 5 mg PO DAILY 03/17/17 07/24/17 History RX: Gabapentin [Neurontin] 100 mg PO BID 03/17/17 07/24/17 History RX: amLODIPine [Norvasc] 5 mg PO DAILY 03/17/17 07/24/17 History RX: traMADol HCl [Ultram] 50 mg PO TID PRN 03/17/17 07/24/17 History Sertraline HCl [Zoloft] 50 mg PO DAILY 03/17/17 07/24/17 History Simvastatin [Zocor] 20 mg PO HS 03/17/17 07/24/17 History Allergies Allergy/AdvReac Type Severity Reaction Status Date / Time ciprofloxacin [From Cipro] Allergy Dyspnea Verified 07/24/17 20:22 ciprofloxacin HCl Allergy Dyspnea Verified 07/24/17 20:22 [From Cipro] Sulfa (Sulfonamide Allergy Rash/Hives Verified 07/24/17 20:22 Antibiotics) Surgical - Exam Osteopathic Statement: *. No significant issues noted on an osteopathic structural exam other than those noted in the History and Physical/Consult. Vital Signs Temp Pulse Resp BP Pulse Ox 98 F 93 18 164/83 98 07/24/17 11:43 07/24/17 11:43 07/24/17 11:43 07/24/17 11:43 07/24/17 11:43 - General well nourished, no distress - ENT normal mucosa, no hearing loss - Neck no masses, no bruits, trachea midline - Respiratory No difficulty with respiration - Abdomen Soft, mild tenderness in the periumbilical region, nondistended, no rebound, no guarding - Neurologic normal coordination - Musculoskeletal normal gait - Psychiatric oriented to time, oriented to person, oriented to place, speech is normal Results - Labs 07/24/17 16:22 07/24/17 16:22 Abnormal Lab Results - Last 24 Hours (Table) 07/24/17 07/24/17 07/24/17 Range/Units 16:22 16:22 16:42 Plt Count 493 H (150-450) k/uL Sodium 135 L (137-145) mmol/L Chloride 95 L (98-107) mmol/L BUN 27 H (7-17) mg/dL Creatinine 1.10 H (0.52-1.04) mg/dL Glucose 107 H (74-99) mg/dL Urine Appearance Cloudy H (Clear) Urine Protein Trace H (Negative) Urine Blood Small H (Negative) Ur Leukocyte Esterase Large H (Negative) Urine WBC 109 H (0-5) /hpf Urine Bacteria Few H (None) /hpf Urine Mucus Rare H (None) /hpf Urine Yeast (Budding) Occasional H (None) /hpf Microbiology - Last 24 Hours (Table) 07/24/17 16:42 Urine Culture - Preliminary Urine,Voided Diabetes panel 07/24/17 Range/Units 16:22 Sodium 135 L (137-145) mmol/L Potassium 3.9 (3.5-5.1) mmol/L Chloride 95 L (98-107) mmol/L Carbon Dioxide 29 (22-30) mmol/L BUN 27 H (7-17) mg/dL Creatinine 1.10 H (0.52-1.04) mg/dL Glucose 107 H (74-99) mg/dL Calcium 9.6 (8.4-10.2) mg/dL AST 32 (14-36) U/L ALT 29 (9-52) U/L Alkaline Phosphatase 113 (38-126) U/L Total Protein 7.0 (6.3-8.2) g/dL Albumin 3.9 (3.5-5.0) g/dL Calcium panel 07/24/17 Range/Units 16:22 Calcium 9.6 (8.4-10.2) mg/dL Albumin 3.9 (3.5-5.0) g/dL Pituitary panel 07/24/17 Range/Units 16:22 Sodium 135 L (137-145) mmol/L Potassium 3.9 (3.5-5.1) mmol/L Chloride 95 L (98-107) mmol/L Carbon Dioxide 29 (22-30) mmol/L BUN 27 H (7-17) mg/dL Creatinine 1.10 H (0.52-1.04) mg/dL Glucose 107 H (74-99) mg/dL Calcium 9.6 (8.4-10.2) mg/dL Adrenal panel 07/24/17 Range/Units 16:22 Sodium 135 L (137-145) mmol/L Potassium 3.9 (3.5-5.1) mmol/L Chloride 95 L (98-107) mmol/L Carbon Dioxide 29 (22-30) mmol/L BUN 27 H (7-17) mg/dL Creatinine 1.10 H (0.52-1.04) mg/dL Glucose 107 H (74-99) mg/dL Calcium 9.6 (8.4-10.2) mg/dL Total Bilirubin 0.5 (0.2-1.3) mg/dL AST 32 (14-36) U/L ALT 29 (9-52) U/L Alkaline Phosphatase 113 (38-126) U/L Total Protein 7.0 (6.3-8.2) g/dL Albumin 3.9 (3.5-5.0) g/dL - Imaging CT scan - abdomen: report reviewed, image reviewed CT scan - pelvis: report reviewed, image reviewed (CT of the abdomen and pelvis was reviewed. There seems to be a obstruction at the juncture of the descending and sigmoid colon.) Assessment and Plan (1) Large bowel obstruction Current Visit: Yes Status: Acute Code(s): K56.609 - UNSP INTESTNL OBST, UNSP TO PARTIAL VERSUS COMPLETE OBST SNOMED Code(s): 330891097 Plan: 72-year-old female with a large bowel obstruction secondary to a mass versus stricture in the descending and sigmoid colon juncture #1 I did discuss the case in depth with the patient, the patient's and the patient's daughter. The patient will require surgical intervention to remove this portion of the colon. I did discuss the possibility of an ostomy secondary to dilation of the proximal colon and the inability to perform a colon prep prior to surgery. The patient does understand this. The patient and the patient's family are agreeable to surgical intervention. #2 the patient has requested an anxiety medication. We will begin a low-dose IV Ativan. #3 I did discuss the case with the patient's admitting physician and I did call the patient's primary care physician Dr. Guzman and all are in agreement with the plan #4 plan for surgical intervention for a laparotomy and colon resection with possible ostomy #5 keep nothing by mouth #6 further recommendations will be made once the surgery is completed
[2017-07-25] MEDS ORDERED: HYDROmorphone 0.5 MG/0.5 ML SYRINGE IVP PRN (15:29)
[2017-07-25] MEDS ORDERED: cefTRIAXone IN SWFI 1,000 MG/10 ML SYRINGE IVP SCH (19:00)
[2017-07-25] MEDS: ONDANSETRON 4 MG/2 ML VIAL IVP PRN (21:18)
[2017-07-26] MEDS: LORazepam 2 MG/ML INJ IV PRN (06:17)
[2017-07-26 07:32] LABS: HCT 38.7 % (34.0-46.0); HGB 11.8 gm/dL (11.4-16.0); Hypochromasia Slight; MCH 28.4 pg (25.0-35.0); MCHC 30.6 g/dL (31.0-37.0); MCV 92.9 fL (80.0-100.0); Mean Platelet Volume 6.5; Platelet Count 489 k/uL (150-450); RBC 4.16 m/uL (3.80-5.40); RDW 13.2 % (11.5-15.5); WBC 9.1 k/uL (3.8-10.6)
[2017-07-26 07:48] LABS: Calcium 9.1 mg/dL (8.4-10.2); Magnesium 2.4 mg/dL (1.6-2.3); Phosphorus 3.8 mg/dL (2.5-4.5); Potassium 4.4 mmol/L (3.5-5.1)
--- NOTE | 2017-07-26 07:48 | P.PN ---
Subjective Progress Note Date: 07/26/17 Principal diagnosis: Constipation Ms. Ingram is a 72-year-old female with a past medical history of essential hypertension, GERD, overactive bladder, and prior colon polyps 2 years ago who presented to the ER with chief complaint of left lower quadrant pain and constipation. In the ER she underwent an extensive evaluation. On arrival she was found to be slightly hypertensive. Laboratory analysis showed a slightly elevated creatinine of 1.1 which appears to be her baseline, thrombocytosis, and slightly low sodium of 135. She was also found to have a urinary tract infection. She was started on Rocephin and IV fluids. She was given pain control and antiemetics. CT of the abdomen and pelvis was obtained which showed dilated large bowel down to the junction of the descending colon and sigmoid colon with a transition point in stricture or mass lesion in the descending colon. Surgery was consulted. Arrangements were made for admission for large bowel obstruction. She was seen by surgery on the morning of 07/25 and they recommended continuing NPO status and colon resection. Patient seen and examined at bedside. Patient states that she had several small loose bowel movements overnight. She slept well and did not require pain medications overnight. She was feeling anxious and nauseous this morning but that we relieved with ativan. Family is wondering about epidural and I stated that they should speak with anesthesia regarding this request. She has not had any chest pain recently. She denies any shortness of breath. She has not had a recent stress test, last she thinks was 3 years ago as a screening test. She has back pain and has not walked more than a city block in the last several months due to pain. She does not walk stairs at home. She has not had chest pain or shortness of breath with walking. Objective - Vital Signs Vital signs: Vital Signs Temp 98.2 F 07/26/17 04:09 Pulse 80 07/26/17 04:09 Resp 16 07/26/17 04:09 BP 143/78 07/26/17 04:09 Pulse Ox 94 L 07/26/17 04:09 Intake & Output 07/25/17 07/26/17 07/26/17 18:59 06:59 18:59 Other: # Voids 2 # Bowel Movements 1 - Exam General: non toxic, no distress, appears at stated age Derm: warm, dry Head: atraumatic, normocephalic, symmetric Eyes: EOMI, no lid lag, anicteric sclera Mouth: no lip lesion, mucus membranes moist Cardiovascular: S1S2 reg, no murmur, positive posterior tibial pulse bilateral, Lungs: CTA bilateral, no rhonchi, no rales , no accessory muscle use Abdominal: Hyperactive bowel sounds soft, Non tender to palpation, no guarding, no appreciable organomegaly Ext: no gross muscle atrophy, no edema, no contractures Neuro: CN II-XI grossly intact, no focal neuro deficits Psych: Alert, oriented, appropriate affect - Labs CBC & Chem 7: 07/24/17 16:22 07/24/17 16:22 Labs: Microbiology - Last 24 Hours (Table) 07/24/17 16:42 Urine Culture - Final Urine,Voided Assessment and Plan Assessment: Colonic obstruction with possible mass lesion or stricture and history of colon polyps -Planned surgery for today with possible diverting osomy -Nothing by mouth -pain control -Zofran UTI, ruled out, sterile pyuria -discontinue rocephine -urine cultures no growth at 18 hours. Hypertension with urgency on arrival -When necessary hydralazine -Hold all oral medications Chronic kidney disease stage III with baseline creatinine 1.1 -Creatinine currently at baseline -Avoid additional nephrotoxic agents Thrombocytosis, likely reactive -Repeat CBC in a.m. GERD -PPI Patients estimated risk is 0.26% for perioperative PR/cardiac arrest based on ASA of 2, Cr 1.1 age and intestinal surgery. RCRI 1%/1.3%. EKG ordered and is pending. Patient is at acceptable risk for the non cardiac procedure. DVT prophylaxis: SCDs Discussed with: Patient, nursing Anticipated discharge: [address]: home with home health vs SNF A total of 35 minutes was spent on the care of this complex patient more than 50 % of the time was spent in counseling and care coordination.
[2017-07-26] MEDS ORDERED: ceFAZolin 2,000 MG in DEXTROSE/WATER 1 50ML.BAG IVPB STA (07:56)
[2017-07-26] MEDS ORDERED: ceFAZolin IN SWFI 2 GM/20 ML SYRINGE IVP STA (07:58)
[2017-07-26] MEDS ORDERED: SUCCINYLCHOLINE CHLORIDE 100 MG/5 ML SYR IV ONE (09:15)
[2017-07-26] MEDS ORDERED: LIDOCAINE 1% INJ 10MG/ML (20 ML MDV) ONE (09:15)
[2017-07-26] MEDS ORDERED: NEOSTIGMINE 1 MG/ML 10 ML VIAL ONE (09:15)
[2017-07-26] MEDS ORDERED: WATER FOR INJECTION, STERILE 10 ML VIAL IV ONE (09:15)
[2017-07-26] MEDS ORDERED: ePHEDrine SULFATE/0.9% NACL/PF 50 MG/5 ML SYRINGE IV ONE (09:15)
[2017-07-26] MEDS ORDERED: GLYCOPYRROLATE 0.2 MG/ML 2 ML VIAL ONE (09:15)
[2017-07-26] MEDS ORDERED: VECURONIUM 10 MG VIAL IV ONE (09:15)
[2017-07-26] MEDS ORDERED: fentaNYL (PF) 50 MCG/ML 2 ML AMP ONE (09:15)
[2017-07-26] MEDS ORDERED: SODIUM CHLORIDE 0.9% 1,000 ML IV ONE ×2 (09:15)
[2017-07-26] MEDS ORDERED: PROPOFOL 10 MG/ML 20 ML VIAL IV ONE (09:15)
[2017-07-26] MEDS ORDERED: NALOXONE 0.4 MG/ML 1 ML VIAL IV PRN ×2 (09:43→13:47)
[2017-07-26] MEDS ORDERED: LACTATED RINGERS 1,000 ML IV ONE ×3 (10:14→13:47)
--- NOTE | 2017-07-26 12:42 | P.OP ---
Date of Procedure: 07/26/17 Preoperative Diagnosis: Distal colonic obstruction Postoperative Diagnosis: Distal colonic obstruction Intra-abdominal abscess Procedure(s) Performed: Laparotomy, sigmoid colectomy, small bowel resection and anastomosis, end ostomy creation Anesthesia: KRISHNA Surgeon: Uri Asif Pathology: other (Sigmoid colon, cultures from intra-abdominal abscess) Condition: stable Disposition: floor Indications for Procedure: This is a 72-year-old female that presented to the emergency department complaining of a week of abdominal pain. Initial workup a few days prior to presentation consisted of enema. On this presentation, a further workup revealed a distal colonic obstruction on CT of the abdomen pelvis. Secondary to this, plan for laparotomy with colon resection was planned. The patient was explained the risks, benefits and alternatives to the procedure. The patient did provide consent prior to attending the operating suite. Operative Findings: Heavily indurated and scarred down distal sigmoid colon Intra-abdominal abscess Description of Procedure: Patient was brought into the operating suite and placed in supine position on operating table. Sedation was provided by anesthesia and the patient underwent endotracheal intubation. The patient was then placed in lithotomy position. A urinary catheter was placed. The patient was then prepped and draped in regular sterile fashion. A vertical midline incision was made below the umbilicus. Dissection was carried to the fascia the fascia was incised along the length of the incision. Once within the abdomen a Bookwalter retractor was placed and the small bowel was isolated to the right upper quadrant of the abdomen. Immediately was noted that the sigmoid colon was scarred to the left side of the abdominal wall and was hard to the touch. It was difficult to delineate a plane between the sigmoid colon and the abdominal wall. The small bowel was also adhered in this area. Dissection was carried with both blunt dissection and electrocautery to remove the sigmoid colon from the abdominal wall adhesion. During this process a intra-abdominal abscess cavity was entered and purulent drainage was noted. Cultures were taken of this and irrigation was used to clear this abscess. During further dissection, a small bowel defect was noted. It was decided to repair this defect with a small bowel resection and anastomosis. Endo REGULO staplers were fired across both the proximal and distal end of the small bowel enterotomy. 2 additional enterotomies were created on either end and a anastomosis was created using a 60 mm purple Endo REGULO stapler. The resulting enterotomy was closed using a TX 60 blue load stapler. The mesenteric defect was closed with a running 3-0 Vicryl suture. At this point a proximal dissection point was noted and a defect was created in the mesentery and a 60 mm purple load Endo REGULO stapler was fired across. A LigaSure device was then used to free the colon from the mesentery in a distal direction. Dissection was then made to clear the sigmoid colon from the peritoneal reflection. Once this was completed a 60 mm stapler was fired across the distal point of resection. Secondary to the inability to provide a colonic prep and the intra-abdominal abscess it was decided to create an end ostomy. The amount of colon needed was adequate. A ostomy site was chosen in the left upper quadrant. A circular incision was made at the anticipated site. Dissection was carried towards the fascia. The fascia was incised in a cruciate manner. Muscle was split bluntly and the peritoneum was then entered. The end of the descending colon was then brought through and was noted to pull through without any additional tension. At this point copious amounts irrigation was used in the abdomen and suctioned out. A CLAY drain was then placed in the pelvis. The vertical midline incision was closed with a fascial layer of 0 PDS looped suture. This was done in running fashion. Skin incision was then closed with skin jose. The ostomy was then created using a standard Bina fashion. Sterile dressing was applied. The patient was then awakened in the operating suite and taken to postanesthesia care unit in stable condition.
[2017-07-26] MEDS: fentaNYL (PF) 50 MCG/ML 2 ML AMP IVP ONE ×2 (12:59→13:07)
[2017-07-26] MEDS ORDERED: diphenhydrAMINE 50 MG/ML 1 ML VIAL IVP ONE (13:00)
[2017-07-26] MEDS: SODIUM CHLORIDE 0.9% 1,000 ML IV SCH (13:11)
[2017-07-26] MEDS: PANTOPRAZOLE 40 MG/10 ML VIAL IVP SCH (14:35)
[2017-07-26] MEDS: PIPERACILLIN-TAZOBACTAM 3.375 GM in DEXTROSE/WATER 1 50ML.BAG IVPB SCH (15:22)
[2017-07-26] MEDS: HEPARIN SODIUM,PORCINE 5,000 UNIT/ML 1 ML VIAL SQ SCH (15:22)
[2017-07-26] MEDS ORDERED: SODIUM CHLORIDE 0.9% 500 ML IV ONE (17:54)
[2017-07-26] MEDS ORDERED: BENZOCAINE SPRAY 1 CAN MUCOUS MEM PRN (17:54)
[2017-07-27] MEDS: PIPERACILLIN-TAZOBACTAM 3.375 GM in DEXTROSE/WATER 1 50ML.BAG IVPB SCH ×3 (00:46→15:53)
[2017-07-27] MEDS: HEPARIN SODIUM,PORCINE 5,000 UNIT/ML 1 ML VIAL SQ SCH ×3 (00:54→15:54)
[2017-07-27 07:09] LABS: Basophils % (A) 0 %; Eosinophils % (A) 0 %; HCT 33.6 % (34.0-46.0); HGB 10.1 gm/dL (11.4-16.0); Hypochromasia Moderate; Lymphocytes # (A) 0.9 k/uL (1.0-4.8); Lymphocytes % (A) 7 %; MCH 28.2 pg (25.0-35.0); MCHC 29.9 g/dL (31.0-37.0); MCV 94.1 fL (80.0-100.0); Mean Platelet Volume 6.4; Monocytes # (A) 0.4 k/uL (0-1.0); Monocytes % (A) 3 %; Neutrophils % (A) 89 %; Platelet Count 485 k/uL (150-450); RBC 3.57 m/uL (3.80-5.40); RDW 13.5 % (11.5-15.5); WBC 12.4 k/uL (3.8-10.6)
[2017-07-27 07:19] LABS: Albumin 2.4 g/dL (3.5-5.0); Calcium 8.4 mg/dL (8.4-10.2); Magnesium 2.4 mg/dL (1.6-2.3); Phosphorus 4.1 mg/dL (2.5-4.5); Potassium 4.2 mmol/L (3.5-5.1); Total Bilirubin 0.3 mg/dL (0.2-1.3); Total Protein 4.7 g/dL (6.3-8.2)
--- NOTE | 2017-07-27 08:11 | P.PN ---
Subjective Progress Note Date: 07/27/17 Principal diagnosis: Constipation Mrs. Ingram is a 72-year-old female with a past medical history of essential hypertension, GERD, overactive bladder, and prior colon polyps 2 years ago who presented to the ER with chief complaint of left lower quadrant pain and constipation. In the ER she underwent an extensive evaluation. On arrival she was found to be slightly hypertensive. Laboratory analysis showed a slightly elevated creatinine of 1.1 which appears to be her baseline, thrombocytosis, and slightly low sodium of 135. She was also found to have a urinary tract infection. She was started on Rocephin and IV fluids. She was given pain control and antiemetics. CT of the abdomen and pelvis was obtained which showed dilated large bowel down to the junction of the descending colon and sigmoid colon with a transition point in stricture or mass lesion in the descending colon. Surgery was consulted. Arrangements were made for admission for large bowel obstruction. She was seen by surgery on the morning of 07/25 and they recommended continuing NPO status and colon resection. She underwent surgery on 07/26 with discover of adhesions and intra-abdominal abscess. She required a sigmoidectomy, small bowel resection with end ostomy creation. She tolerated procedure well. Patient seen and examined at bedside. Complains of dry mouth and mouth swabs not working. Also complains of throat pain. No nausea. No pain and epidural is working well. Good output from ostomy. All questions answered. Objective - Vital Signs Vital signs: Vital Signs Temp 98.9 F 07/27/17 06:54 Pulse 99 07/27/17 06:54 Resp 17 07/27/17 07:09 BP 123/71 07/27/17 06:54 Pulse Ox 94 L 07/27/17 06:54 Intake & Output 07/26/17 07/27/17 07/27/17 18:59 06:59 18:59 Intake Total 2900 0 Output Total 930 1020 65 Balance 19690 - Weight 64.41 kg Intake: IV 2900 Oral 0 Output: Drainage 70 65 Abdomen 70 65 Urine 130 300 Stool 240 720 Estimated Blood Loss 490 Other: Voiding Method Indwelling Catheter Indwelling Catheter Indwelling Catheter # Voids 2 - Exam General: non toxic, no distress, appears at stated age Derm: warm, dry Head: atraumatic, normocephalic, symmetric Eyes: EOMI, no lid lag, anicteric sclera Mouth: no lip lesion, mucus membranes moist Cardiovascular: S1S2 reg, no murmur, positive posterior tibial pulse bilateral, Lungs: CTA bilateral, no rhonchi, no rales , no accessory muscle use Abdominal: soft, + tender to palpation diffusely, no guarding, no appreciable organomegaly, midline incision with dressing in place, ostomy with good output, CLAY drain with serosanguineous drainage. Ext: no gross muscle atrophy, no edema, no contractures Neuro: CN II-XI grossly intact, no focal neuro deficits Psych: Alert, oriented, appropriate affect - Labs CBC & Chem 7: 07/27/17 06:36 07/27/17 06:36 Labs: Abnormal Lab Results - Last 24 Hours (Table) 07/27/17 07/27/17 Range/Units 06:36 06:36 WBC 12.4 H (3.8-10.6) k/uL RBC 3.57 L (3.80-5.40) m/uL Hgb 10.1 L (11.4-16.0) gm/dL Hct 33.6 L (34.0-46.0) % MCHC 29.9 L (31.0-37.0) g/dL Plt Count 485 H (150-450) k/uL Neutrophils # 11.0 H (1.3-7.7) k/uL Lymphocytes # 0.9 L (1.0-4.8) k/uL BUN 26 H (7-17) mg/dL Creatinine 1.12 H (0.52-1.04) mg/dL Glucose 119 H (74-99) mg/dL Magnesium 2.4 H (1.6-2.3) mg/dL Total Protein 4.7 L (6.3-8.2) g/dL Albumin 2.4 L (3.5-5.0) g/dL Microbiology - Last 24 Hours (Table) 07/26/17 11:01 Gram Stain - Preliminary Abdomen Wound Culture - Preliminary 07/26/17 11:01 Anaerobic Culture - Preliminary Abdomen Assessment and Plan Assessment: Colonic obstruction with intra-abdominal abscess - s/p sigmoid colectomy, small bowel resection with creation of end ostomy 07/26 - Zosyn, cultures pending -Nothing by mouth -pain control -Zofran -NGT in place benzocaine ordered Hypertension with urgency on arrival -When necessary hydralazine -Hold all oral medications Chronic kidney disease stage III with baseline creatinine 1.1 -Creatinine currently at baseline -Avoid additional nephrotoxic agents Thrombocytosis, likely reactive -Repeat CBC in a.m. Anticipated acute blood loss anemia - check iron studies - follow CBC - no transfusion indicated at this time. GERD -PPI DVT prophylaxis: SCDs Discussed with: Patient, nursing Anticipated discharge: [address]: home with home health vs SNF A total of 35 minutes was spent on the care of this complex patient more than 50 % of the time was spent in counseling and care coordination.
[2017-07-27] MEDS: PANTOPRAZOLE 40 MG/10 ML VIAL IVP SCH (08:35)
--- NOTE | 2017-07-27 09:10 | P.PN ---
Subjective Progress Note Date: 07/27/17 Patient seen and examined at bedside. Pain is well-controlled. She does have an epidural in place. Ostomy is functioning. NG tube is in place. Dempsey catheter is in place while epidural is in place. Objective - Vital Signs Vital signs: Vital Signs Temp 98.9 F 07/27/17 06:54 Pulse 99 07/27/17 06:54 Resp 17 07/27/17 07:09 BP 123/71 07/27/17 06:54 Pulse Ox 94 L 07/27/17 06:54 Intake & Output 07/26/17 07/27/17 07/27/17 18:59 06:59 18:59 Intake Total 2900 0 Output Total 930 1020 65 Balance 1969 -0 - Weight 64.41 kg Intake: IV 2900 Oral 0 Output: Drainage 70 65 Abdomen 70 65 Urine 130 300 Stool 240 720 Estimated Blood Loss 490 Other: Voiding Method Indwelling Catheter Indwelling Catheter Indwelling Catheter # Voids 2 - Constitutional General appearance: Present: cooperative - EENT ENT: Present: other (Sore throat with decreased strength of voice) - Respiratory Details: No difficulty with respiration - Gastrointestinal Gastrointestinal Comment(s): Soft, appropriate tenderness, nondistended, no rebound, no guarding, ostomy site pink and patent with stool output, incision site clean, dry and intact - Musculoskeletal Musculoskeletal: Present: generalized weakness - Psychiatric Psychiatric: Present: A&O x's 3 - Labs CBC & Chem 7: 07/27/17 06:36 07/27/17 06:36 Labs: Abnormal Lab Results - Last 24 Hours (Table) 07/27/17 07/27/17 Range/Units 06:36 06:36 WBC 12.4 H (3.8-10.6) k/uL RBC 3.57 L (3.80-5.40) m/uL Hgb 10.1 L (11.4-16.0) gm/dL Hct 33.6 L (34.0-46.0) % MCHC 29.9 L (31.0-37.0) g/dL Plt Count 485 H (150-450) k/uL Neutrophils # 11.0 H (1.3-7.7) k/uL Lymphocytes # 0.9 L (1.0-4.8) k/uL BUN 26 H (7-17) mg/dL Creatinine 1.12 H (0.52-1.04) mg/dL Glucose 119 H (74-99) mg/dL Magnesium 2.4 H (1.6-2.3) mg/dL Total Protein 4.7 L (6.3-8.2) g/dL Albumin 2.4 L (3.5-5.0) g/dL Microbiology - Last 24 Hours (Table) 07/26/17 11:01 Gram Stain - Preliminary Abdomen Wound Culture - Preliminary 07/26/17 11:01 Anaerobic Culture - Preliminary Abdomen Assessment and Plan (1) Large bowel obstruction Current Visit: Yes Status: Acute Code(s): K56.609 - UNSP INTESTNL OBST, UNSP TO PARTIAL VERSUS COMPLETE OBST SNOMED Code(s): 581927579 Plan: 72-year-old female status post sigmoid colectomy, small bowel resection, end ostomy creation secondary to large bowel obstruction #[address] for pain control #2 Zosyn to be continued secondary to purulent pocket during laparotomy #3 increase activity #4 continue NG tube #5 keep nothing by mouth #6 ostomy care #[address] secondary to epidural
[2017-07-27] MEDS: LACTATED RINGERS 1,000 ML IV SCH ×2 (09:24→20:06)
--- NOTE | 2017-07-27 09:58 | P.PN ---
Progress Note - Text 07/27 908am 72-year-old female status post explore lap by Dr. Asif. Patient has an epidural catheter for postop pain control with the epidural solution running at 7 mL an hour she has a VAS of 6 at rest. I asked the nurse to increase the rate to 9 mL an hour. No sensory or motor deficits noted plan to continue epidural infusion
[2017-07-27] MEDS ORDERED: BENZOCAINE SPRAY 1 CAN ONE (11:44)
[2017-07-27] MEDS: BUPIVACAINE (PF) 0.5% 31.3 ML, HYDROMORPHONE (PF) 5 MG in SODIUM CHLORIDE 0.9% 218 ML EPIDURAL PRN (12:21)
[2017-07-28] MEDS: PIPERACILLIN-TAZOBACTAM 3.375 GM in DEXTROSE/WATER 1 50ML.BAG IVPB SCH ×3 (00:56→15:20)
[2017-07-28] MEDS: HEPARIN SODIUM,PORCINE 5,000 UNIT/ML 1 ML VIAL SQ SCH ×3 (00:56→15:21)
[2017-07-28] MEDS: LACTATED RINGERS 1,000 ML IV SCH (05:30)
--- NOTE | 2017-07-28 07:17 | P.PN ---
Progress Note - Text Date: 07/28/2017 Time: 07 The patient is status post, exploratory lap, postoperative day number 2 The patient has no complaints of nausea vomiting or headache. The patient does not complain of any lower extremity numbness or weakness. The epidural is running at 9 mL per hour. The epidural will be maintained and adjusted as needed.
[2017-07-28 07:23] LABS: HCT 27.1 % (34.0-46.0); Hypochromasia Slight; MCH 28.3 pg (25.0-35.0); MCHC 30.7 g/dL (31.0-37.0); MCV 92.1 fL (80.0-100.0); Mean Platelet Volume 6.7; Platelet Count 350 k/uL (150-450); RBC 2.94 m/uL (3.80-5.40); RDW 13.5 % (11.5-15.5); WBC 10.3 k/uL (3.8-10.6)
[2017-07-28 07:52] LABS: Anion Gap 10 mmol/L; Blood Urea Nitrogen 20 mg/dL (7-17); Carbon Dioxide 24 mmol/L (22-30); Chloride 105 mmol/L (98-107); Glucose 66 mg/dL (74-99); Potassium 3.8 mmol/L (3.5-5.1); Sodium 139 mmol/L (137-145)
[2017-07-28 07:54] LABS: HGB 8.3 gm/dL (11.4-16.0)
[2017-07-28] MEDS ORDERED: DEXTROSE 50%-WATER 50 ML SYRINGE IVP STA (08:06)
[2017-07-28] MEDS: PANTOPRAZOLE 40 MG/10 ML VIAL IVP SCH (08:08)
[2017-07-28] MEDS: DEXTROSE 5%-0.45% NACL 1,000 ML IV SCH ×2 (08:26→21:14)
[2017-07-28] MEDS: BUPIVACAINE (PF) 0.5% 31.3 ML, HYDROMORPHONE (PF) 5 MG in SODIUM CHLORIDE 0.9% 218 ML EPIDURAL PRN (08:39)
[2017-07-28 08:44] LABS: Glucose,Whole Blood 128 mg/dL (75-99)
--- NOTE | 2017-07-28 09:37 | P.PN ---
Subjective Progress Note Date: 07/28/17 Principal diagnosis: abdominal pain Mrs. Ingram is a 72-year-old female with a past medical history of essential hypertension, GERD, overactive bladder, and prior colon polyps 2 years ago who presented to the ER with chief complaint of left lower quadrant pain and constipation. In the ER she underwent an extensive evaluation. On arrival she was found to be slightly hypertensive. Laboratory analysis showed a slightly elevated creatinine of 1.1 which appears to be her baseline, thrombocytosis, and slightly low sodium of 135. She was also found to have a urinary tract infection. She was started on Rocephin and IV fluids. She was given pain control and antiemetics. CT of the abdomen and pelvis was obtained which showed dilated large bowel down to the junction of the descending colon and sigmoid colon with a transition point in stricture or mass lesion in the descending colon. Surgery was consulted. Arrangements were made for admission for large bowel obstruction. She was seen by surgery on the morning of 07/25 and they recommended continuing NPO status and colon resection. She underwent surgery on 07/26 with discover of adhesions and intra-abdominal abscess. She required a sigmoidectomy, small bowel resection with end ostomy creation. She tolerated procedure well. After surgery. She had an epidural for pain control and a Dempsey catheter. She also had an NG tube in place which was discontinued on the morning of 07/28. On the morning of 07/28 her laboratory analysis also revealed a slightly low glucose and she was given 1/2 amp of D50 and fluids were switched from LR to D5 half normal. Patient seen and examined at bedside. Feeling much better after her NG tube was discontinued. She is not having any symptoms of low blood sugar including shaking, altered mentation, nausea. She states her pain is well controlled with epidural catheter in place. She complains of feeling the need to cough but that it pulling on her stitches. We discussed using a pillow to cover her abdominal area when coughing. She has had good ostomy output. She is feeling better than she thought possible. She does have some tailbone pain but states it was eased when she sat in a chair yesterday and will attempt this again today. Objective - Vital Signs Vital signs: Vital Signs Temp 97.7 F 07/28/17 07:00 Pulse 98 07/28/17 07:00 Resp 15 02/20/18 07:00 BP 153/79 07/28/17 07:00 Pulse Ox 95 07/28/17 07:00 Intake & Output 07/27/17 07/28/17 07/28/17 18:59 06:59 18:59 Intake Total 625 182.7 Output Total 495 440 25 Balance 130 -440 157.7 Intake: IV 625 Lactated Ringers 1,000 ml 625 @ 125 mls/hr IV .Q8H ONE Rx#:[id number] Intake, IV Titration 182.7 Amount Bupivacaine (Pf) 0.5% 31. 182.7 3 ml Hydromorphone (Pf) 5 mg In Sodium Chloride 0. 9% 218 ml @ Per Protocol EPIDURAL .Q0M PRN Rx#: [id number] Output: Gastric Drainage 50 Drainage 95 25 Abdomen 95 25 Urine 350 200 Uretheral (Dempsey) 350 Stool 240 Other: Voiding Method Indwelling Catheter Indwelling Catheter Indwelling Catheter # Bowel Movements 0 - Exam General: non toxic, no distress, appears at stated age Derm: warm, dry Head: atraumatic, normocephalic, symmetric Eyes: EOMI, no lid lag, anicteric sclera Mouth: no lip lesion, mucus membranes dry Cardiovascular: S1S2 reg, no murmur, positive posterior tibial pulse bilateral, Lungs: CTA bilateral, no rhonchi, no rales , no accessory muscle use Abdominal: soft, + tender to palpation diffusely, no guarding, no appreciable organomegaly, midline incision with dressing in place, ostomy with good output, CLAY drain with serosanguineous drainage. Ext: no gross muscle atrophy, no edema, no contractures Neuro: CN II-XI grossly intact, no focal neuro deficits Psych: Alert, oriented, appropriate affect - Labs CBC & Chem 7: 07/28/17 06:37 07/28/17 06:37 Labs: Abnormal Lab Results - Last 24 Hours (Table) 07/28/17 07/28/17 07/28/17 Range/Units 06:37 06:37 08:41 RBC 2.94 L (3.80-5.40) m/uL Hgb 8.3 L D (11.4-16.0) gm/dL Hct 27.1 L (34.0-46.0) % MCHC 30.7 L (31.0-37.0) g/dL BUN 20 H (7-17) mg/dL Glucose 66 L (74-99) mg/dL POC Glucose (mg/dL) 128 H (75-99) mg/dL Calcium 8.0 L (8.4-10.2) mg/dL Assessment and Plan Assessment: Colonic obstruction with intra-abdominal abscess - s/p sigmoid colectomy, small bowel resection with creation of end ostomy 07/26 - Zosyn, cultures, prelim gram stain without organism -Nothing by mouth -pain control -Zofran -NGT discontinued Hypoglycemia -One half amp of D50 given -Fluids transition from LR to D5 half-normal Hypertension with urgency on arrival -When necessary hydralazine -Resume Norvasc today, continue to hold losartan and hydrochlorothiazide Chronic kidney disease stage III with baseline creatinine 1.1 -Creatinine currently at baseline -Avoid additional nephrotoxic agents Thrombocytosis, likely reactive -Repeat CBC in a.m. Anticipated acute blood loss anemia -Ferritin and iron studies pending, no indication for transfusion at this time -If ferritin level may need IV iron 1 - follow CBC GERD -PPI DVT prophylaxis: SCDs Discussed with: Patient, nursing Anticipated discharge: 5-[address]: home with home health A total of 25 minutes was spent on the care of this complex patient more than 50 % of the time was spent in counseling and care coordination.
[2017-07-28] MEDS: amLODIPine 5 MG TAB PO SCH (10:19)
[2017-07-28 11:35] LABS: Iron Saturation 4.55 (12.00-45.00)
[2017-07-28 12:06] LABS: Glucose,Whole Blood 124 mg/dL (75-99)
--- NOTE | 2017-07-28 17:08 | P.PN ---
Subjective Progress Note Date: 07/28/17 Patient seen and examined at bedside. She states she is feeling well today. Her ostomy is functioning. She denies any nausea or emesis episodes. She had a scant amount out of her NG tube overnight. She has attempted ambulation and has been up in the chair. Epidural and Dempsey catheter are still in place. Objective - Vital Signs Vital signs: Vital Signs Temp 97.8 F 07/28/17 14:18 Pulse 84 07/28/17 14:18 Resp 16 07/28/17 14:18 BP 147/82 07/28/17 14:18 Pulse Ox 96 07/28/17 14:18 Intake & Output 07/27/17 07/28/17 07/28/17 18:59 06:59 18:59 Intake Total 625 232.7 Output Total 372 281 4994 Balance 130 -440 -792.3 Weight 64.41 kg Intake: IV 625 Lactated Ringers 1,000 ml 625 @ 125 mls/hr IV .Q8H ONE Rx#:[id number] Intake, IV Titration 232.7 Amount Bupivacaine (Pf) 0.5% 31. 182.7 3 ml Hydromorphone (Pf) 5 mg In Sodium Chloride 0. 9% 218 ml @ Per Protocol EPIDURAL .Q0M PRN Rx#: [id number] Piperacillin-Tazobactam 3 50 .375 gm In Dextrose/Water 1 50ml.bag @ 12.5 mls/hr IVPB Q8HR JOSE DE JESUS Rx#: [id number] Output: Gastric Drainage 50 Drainage 95 25 Abdomen 95 25 Urine 269 353 8243 Uretheral (Dempsey) 350 1000 Stool 240 Other: Voiding Method Indwelling Catheter Indwelling Catheter Indwelling Catheter # Bowel Movements 0 - Constitutional General appearance: Present: cooperative - Respiratory Details: No difficulty with respiration - Gastrointestinal Gastrointestinal Comment(s): Soft, appropriate tenderness, nondistended, no rebound, no guarding, ostomy pink and patent with output, incision clean, dry and intact with jose in place - Psychiatric Psychiatric: Present: A&O x's 3 - Labs CBC & Chem 7: 07/28/17 06:37 07/28/17 06:37 Labs: Abnormal Lab Results - Last 24 Hours (Table) 07/28/17 07/28/17 07/28/17 Range/Units 06:37 06:37 06:37 RBC 2.94 L (3.80-5.40) m/uL Hgb 8.3 L D (11.4-16.0) gm/dL Hct 27.1 L (34.0-46.0) % MCHC 30.7 L (31.0-37.0) g/dL BUN 20 H (7-17) mg/dL Glucose 66 L (74-99) mg/dL POC Glucose (mg/dL) (75-99) mg/dL Calcium 8.0 L (8.4-10.2) mg/dL Iron 9 L (50-170) ug/dL TIBC 198 L (228-460) ug/dL Iron Saturation 4.55 L (12.00-45.00) 07/28/17 07/28/17 Range/Units 08:41 11:40 RBC (3.80-5.40) m/uL Hgb (11.4-16.0) gm/dL Hct (34.0-46.0) % MCHC (31.0-37.0) g/dL BUN (7-17) mg/dL Glucose (74-99) mg/dL POC Glucose (mg/dL) 128 H 124 H (75-99) mg/dL Calcium (8.4-10.2) mg/dL Iron (50-170) ug/dL TIBC (228-460) ug/dL Iron Saturation (12.00-45.00) Microbiology - Last 24 Hours (Table) 07/26/17 11:01 Gram Stain - Preliminary Abdomen Wound Culture - Preliminary Gram Neg Bacilli Assessment and Plan (1) Large bowel obstruction Current Visit: Yes Status: Acute Code(s): K56.609 - UNSP INTESTNL OBST, UNSP TO PARTIAL VERSUS COMPLETE OBST SNOMED Code(s): 265000684 Plan: 72-year-old female status post sigmoid colectomy, small bowel resection, end ostomy creation secondary to large bowel obstruction #[address] for pain control #2 Zosyn to be continued secondary to purulent pocket during laparotomy #3 increase activity #4 discontinue NG tube #5 begin clear liquid diet #6 ostomy care #[address] secondary to epidural
[2017-07-28 17:39] LABS: Glucose,Whole Blood 88 mg/dL (75-99)
[2017-07-29] MEDS: HEPARIN SODIUM,PORCINE 5,000 UNIT/ML 1 ML VIAL SQ SCH ×4 (00:08→23:26)
[2017-07-29] MEDS: PIPERACILLIN-TAZOBACTAM 3.375 GM in DEXTROSE/WATER 1 50ML.BAG IVPB SCH ×4 (00:08→23:26)
[2017-07-29] MEDS: LORazepam 2 MG/ML INJ IV PRN (00:16)
[2017-07-29 01:54] LABS: Glucose,Whole Blood 139 mg/dL (75-99)
[2017-07-29 06:09] LABS: Glucose,Whole Blood 115 mg/dL (75-99)
--- NOTE | 2017-07-29 07:20 | P.PN ---
Progress Note - Text Progress Note Date: 07/29/17 Postop day 3 status post explanted laparotomy, epidural catheter for postoperative analgesia, patient doing well pain well controlled, epidural site okay Vital signs stable, we'll continue the current management
[2017-07-29 08:15] LABS: HCT 27.9 % (34.0-46.0); HGB 8.3 gm/dL (11.4-16.0); Hypochromasia Moderate; MCH 28.2 pg (25.0-35.0); MCHC 29.7 g/dL (31.0-37.0); MCV 94.9 fL (80.0-100.0); Mean Platelet Volume 6.5; Platelet Count 335 k/uL (150-450); RBC 2.94 m/uL (3.80-5.40); RDW 13.8 % (11.5-15.5)
[2017-07-29 08:30] LABS: Anion Gap 5 mmol/L; Blood Urea Nitrogen 11 mg/dL (7-17); Calcium 7.6 mg/dL (8.4-10.2); Carbon Dioxide 30 mmol/L (22-30); Chloride 101 mmol/L (98-107); Glucose 117 mg/dL (74-99); Potassium 3.5 mmol/L (3.5-5.1); Sodium 136 mmol/L (137-145)
--- NOTE | 2017-07-29 09:25 | P.PN ---
<Mee Coleman - Last Filed: 07/29/17 09:16> Subjective Progress Note Date: 07/29/17 72-year-old female seen and examined. Sitting up in bed. Taking a clear liquid diet. Asking for diet to be advanced. Denying nausea vomiting. Nursing reports that patient had stooling from the ostomy during the night. Currently a scant amount of brown secretions noted in the ostomy bag this morning CLAY drain in right lower quadrant serous drainage noted epidural in place for pain control patient states has no abdominal discomfort Laparotomy, sigmoid colectomy, small bowel resection and anastomosis, end ostomy creation done on July 26 Objective - Vital Signs Vital signs: Vital Signs Temp 97.9 F 07/29/17 07:33 Pulse 83 07/29/17 07:33 Resp 16 07/29/17 07:33 BP 182/78 07/29/17 07:33 Pulse Ox 92 L 07/29/17 07:33 Intake & Output 07/28/17 07/29/17 07/29/17 18:59 06:59 18:59 Intake Total 704.7 825 Output Total 1025 930 800 Balance -320.3 -105 -800 Weight 64.41 kg Intake: Intake, IV Titration 232.7 725 Amount Bupivacaine (Pf) 0.5% 31. 182.7 3 ml Hydromorphone (Pf) 5 mg In Sodium Chloride 0. 9% 218 ml @ Per Protocol EPIDURAL .Q0M PRN Rx#: [id number] Dextrose 5%-0.45% NaCl 1, 675 000 ml @ 75 mls/hr IV . [id number] [facility] Rx#:[id number] Piperacillin-Tazobactam 3 50 50 .375 gm In Dextrose/Water 1 50ml.bag @ 12.5 mls/hr IVPB Q8HR [facility] Rx#: [id number] Oral 472 100 Output: Drainage 25 30 Abdomen 25 30 Urine 1000 900 800 Uretheral (Dempsey) 1000 900 800 Other: Voiding Method Indwelling Catheter Indwelling Catheter - Exam Physical exam Pleasant 72-year-old female sitting up in bed oriented 3 taking a clear liquid diet tolerating Lungs adequate air movement bilaterally on room air Heart S1-S2 audible and regular Abdomen surgical dressing to surgical site dry ostomy stoma pink scant amount of brown drainage in the ostomy bag. CLAY drain right lower quadrant serous sanguinous drainage noted indwelling Dempsey catheter in place ramila urine active bowel tones noted no nausea no vomiting Extremities Venodyne's on to the bilateral lower extremities no edema noted - Labs CBC & Chem 7: 07/29/17 07:12 07/29/17 07:12 Labs: Abnormal Lab Results - Last 24 Hours (Table) 07/28/17 07/28/17 07/29/17 Range/Units 06:37 11:40 01:32 RBC (3.80-5.40) m/uL Hgb (11.4-16.0) gm/dL Hct (34.0-46.0) % MCHC (31.0-37.0) g/dL Sodium (137-145) mmol/L Glucose (74-99) mg/dL POC Glucose (mg/dL) 124 H 139 H (75-99) mg/dL Calcium (8.4-10.2) mg/dL Iron 9 L (50-170) ug/dL TIBC 198 L (228-460) ug/dL Iron Saturation 4.55 L (12.00-45.00) 07/29/17 07/29/17 07/29/17 Range/Units 05:56 07:12 07:12 RBC 2.94 L (3.80-5.40) m/uL Hgb 8.3 L (11.4-16.0) gm/dL Hct 27.9 L (34.0-46.0) % MCHC 29.7 L (31.0-37.0) g/dL Sodium 136 L (137-145) mmol/L Glucose 117 H (74-99) mg/dL POC Glucose (mg/dL) 115 H (75-99) mg/dL Calcium 7.6 L (8.4-10.2) mg/dL Iron (50-170) ug/dL TIBC (228-460) ug/dL Iron Saturation (12.00-45.00) Microbiology - Last 24 Hours (Table) 07/26/17 11:01 Gram Stain - Preliminary Abdomen Wound Culture - Preliminary Gram Neg Bacilli Assessment and Plan Assessment: Impression Present on admission abdominal pain onset 1 week prior CAT scan abdomen pelvis on presentation revealed a distal colonic obstruction Status post laparotomy, sigmoid colectomy, small bowel resection and anastomosis , and ostomy creation done on July 26 Plan Continue postop surgical care Epidural per anesthesiology Increase activity Advance diet to full liquid Initiate ostomy teaching Remove the Dempsey catheter will once the epidural has been removed DVT and GI prophylaxis Further recommendations pending Continue Zosyn secondary to. purulent Pocket noted during laparotomy Progress note dictated for Dr. mora The above impression and plan of care have been discussed and directed by signing physician. Mee Coleman nurse practitioner acting as scribe for signing physician. <Uri Mora - Last Filed: 07/29/17 20:25> Objective - Vital Signs Vital signs: Vital Signs Temp 98.5 F 07/29/17 15:00 Pulse 84 07/29/17 15:00 Resp 16 07/29/17 15:00 BP 134/70 07/29/17 15:00 Pulse Ox 95 07/29/17 15:00 Intake & Output 07/29/17 07/29/17 07/30/17 06:59 18:59 06:59 Intake Total 825 1150 Output Total 930 2040 Balance -105 -890 Intake: Intake, IV Titration 725 Amount Dextrose 5%-0.45% NaCl 1, 675 000 ml @ 75 mls/hr IV . [id number] [facility] Rx#:[id number] Piperacillin-Tazobactam 3 50 .375 gm In Dextrose/Water 1 50ml.bag @ 12.5 mls/hr IVPB Q8HR [facility] Rx#: [id number] Oral 100 1150 Output: Drainage 30 40 Abdomen 30 40 Urine 900 2000 Uretheral (Dempsey) 900 1700 Other: Voiding Method Indwelling Catheter Toilet - Labs CBC & Chem 7: 07/29/17 07:12 07/29/17 07:12 Labs: Abnormal Lab Results - Last 24 Hours (Table) 07/29/17 07/29/17 07/29/17 Range/Units 01:32 05:56 07:12 RBC 2.94 L (3.80-5.40) m/uL Hgb 8.3 L (11.4-16.0) gm/dL Hct 27.9 L (34.0-46.0) % MCHC 29.7 L (31.0-37.0) g/dL Sodium (137-145) mmol/L Glucose (74-99) mg/dL POC Glucose (mg/dL) 139 H 115 H (75-99) mg/dL Calcium (8.4-10.2) mg/dL 07/29/17 07/29/17 07/29/17 Range/Units 07:12 12:49 17:14 RBC (3.80-5.40) m/uL Hgb (11.4-16.0) gm/dL Hct (34.0-46.0) % MCHC (31.0-37.0) g/dL Sodium 136 L (137-145) mmol/L Glucose 117 H (74-99) mg/dL POC Glucose (mg/dL) 114 H 142 H (75-99) mg/dL Calcium 7.6 L (8.4-10.2) mg/dL Microbiology - Last 24 Hours (Table) 07/26/17 11:01 Anaerobic Culture - Final Abdomen Anaerobic Gm Negative Bacilli 07/26/17 11:01 Gram Stain - Final Abdomen Wound Culture - Final Pseudomonas aeruginosa Assessment and Plan (1) Large bowel obstruction Current Visit: Yes Status: Acute Code(s): K56.609 - UNSP INTESTNL OBST, UNSP TO PARTIAL VERSUS COMPLETE OBST SNOMED Code(s): 434855371 Plan: 72-year-old female status post sigmoid colectomy, small bowel resection, end ostomy creation secondary to large bowel obstruction #1 epidural removed, IV and oral pain control #2 Zosyn to be continued, following cultures #3 increase activity #4 discontinue Dempsey catheter #5 advance to soft diet #6 ostomy care
--- NOTE | 2017-07-29 09:36 | P.PN ---
Subjective Progress Note Date: 07/29/17 Principal diagnosis: SBO Patient was having a 7/10 back pain. No abdominal pain, no nausea or vomiting. Objective - Vital Signs Vital signs: Vital Signs Temp 97.9 F 07/29/17 07:33 Pulse 83 07/29/17 07:33 Resp 16 07/29/17 07:33 BP 182/78 07/29/17 07:33 Pulse Ox 92 L 07/29/17 07:33 Intake & Output 07/28/17 07/29/17 07/29/17 18:59 06:59 18:59 Intake Total 704.7 825 Output Total 1025 930 800 Balance -320.3 -105 -800 Weight 64.41 kg Intake: Intake, IV Titration 232.7 725 Amount Bupivacaine (Pf) 0.5% 31. 182.7 3 ml Hydromorphone (Pf) 5 mg In Sodium Chloride 0. 9% 218 ml @ Per Protocol EPIDURAL .Q0M PRN Rx#: [id number] Dextrose 5%-0.45% NaCl 1, 675 000 ml @ 75 mls/hr IV . [id number] [facility] Rx#:[id number] Piperacillin-Tazobactam 3 50 50 .375 gm In Dextrose/Water 1 50ml.bag @ 12.5 mls/hr IVPB Q8HR [facility] Rx#: [id number] Oral 472 100 Output: Drainage 25 30 Abdomen 25 30 Urine 1000 900 800 Uretheral (Dempsey) 1000 900 800 Other: Voiding Method Indwelling Catheter Indwelling Catheter - Exam General: non toxic, no distress, appears at stated age Derm: warm, dry Head: atraumatic, normocephalic, symmetric Eyes: EOMI, no lid lag, anicteric sclera Mouth: no lip lesion, mucus membranes dry Cardiovascular: S1S2 reg, no murmur, positive posterior tibial pulse bilateral, Lungs: CTA bilateral, no rhonchi, no rales , no accessory muscle use Abdominal: soft, + tender to palpation diffusely, no guarding, no appreciable organomegaly, midline incision with dressing in place, ostomy with good output, CLAY drain with serosanguineous drainage. Ext: no gross muscle atrophy, no edema, no contractures Neuro: CN II-XI grossly intact, no focal neuro deficits Psych: Alert, oriented, appropriate affect - Labs CBC & Chem 7: 07/29/17 07:12 07/29/17 07:12 Labs: Abnormal Lab Results - Last 24 Hours (Table) 07/28/17 07/28/17 07/29/17 Range/Units 06:37 11:40 01:32 RBC (3.80-5.40) m/uL Hgb (11.4-16.0) gm/dL Hct (34.0-46.0) % MCHC (31.0-37.0) g/dL Sodium (137-145) mmol/L Glucose (74-99) mg/dL POC Glucose (mg/dL) 124 H 139 H (75-99) mg/dL Calcium (8.4-10.2) mg/dL Iron 9 L (50-170) ug/dL TIBC 198 L (228-460) ug/dL Iron Saturation 4.55 L (12.00-45.00) 07/29/17 07/29/17 07/29/17 Range/Units 05:56 07:12 07:12 RBC 2.94 L (3.80-5.40) m/uL Hgb 8.3 L (11.4-16.0) gm/dL Hct 27.9 L (34.0-46.0) % MCHC 29.7 L (31.0-37.0) g/dL Sodium 136 L (137-145) mmol/L Glucose 117 H (74-99) mg/dL POC Glucose (mg/dL) 115 H (75-99) mg/dL Calcium 7.6 L (8.4-10.2) mg/dL Iron (50-170) ug/dL TIBC (228-460) ug/dL Iron Saturation (12.00-45.00) Microbiology - Last 24 Hours (Table) 07/26/17 11:01 Gram Stain - Preliminary Abdomen Wound Culture - Preliminary Gram Neg Bacilli Assessment and Plan Plan: Colonic obstruction with intra-abdominal abscess - s/p sigmoid colectomy, small bowel resection with creation of end ostomy 07/26 - Continue zosyn, wound cultures grew gram negative bacilli - Tolerating full liquid diet. - Pain control - Zofran - NGT discontinued Hypoglycemia -Was hypoglycemic at 66 on the morning of 07/28 s/p one half amp of D50 -On D5 half-normal -Continue to monitor blood sugars Hypertension with urgency on arrival -Was hypertensive this am, will recheck now. D/W RN. -When necessary hydralazine -Norvasc was resumed on 07/28, will resume losartan today, continue to hold hydrochlorothiazide Chronic kidney disease stage III with baseline creatinine 1.1 -Creatinine currently at baseline -Avoid additional nephrotoxic agents Anticipated acute blood loss anemia -Stable no need to transfuse at this point GERD -PPI DVT prophylaxis: SCDs Discussed with: Patient, nursing
[2017-07-29] MEDS: LOSARTAN 50 MG TAB PO SCH (10:35)
[2017-07-29] MEDS: amLODIPine 5 MG TAB PO SCH (10:35)
[2017-07-29] MEDS: PANTOPRAZOLE 40 MG/10 ML VIAL IVP SCH (10:36)
[2017-07-29 12:51] LABS: Glucose,Whole Blood 114 mg/dL (75-99)
[2017-07-29] MEDS: HYDROcodone/APAP 5-325MG 1 EACH TAB PO PRN (15:45)
[2017-07-29] MEDS: DEXTROSE 5%-0.45% NACL 1,000 ML IV SCH (15:47)
--- NOTE | 2017-07-29 16:03 | XR ---
EXAMINATION TYPE: XR chest 1V portable DATE OF EXAM: 07/29/2017 COMPARISON: NONE HISTORY: Bowel obstruction, extended-care facility clearance TECHNIQUE: Single frontal view of the chest is obtained. FINDINGS: Patient is rotated. Heart size may be accentuated by rotation. Patchy basilar density is n oted. Right hemidiaphragm is elevated. There is no evident pneumothorax. Pulmonary vascularity and hi la within normal limits. Surgical clips are present in the right upper quadrant. There may be an unde rlying scoliosis. IMPRESSION: Suspect basilar atelectasis. Elevated right hemidiaphragm. Additional findings above. Ro tated exam. Follow-up PA and lateral chest x-ray as indicated.
[2017-07-29 17:16] LABS: Glucose,Whole Blood 142 mg/dL (75-99)
[2017-07-29] MEDS: SODIUM CHLORIDE 0.9% 1,000 ML IV SCH (23:25)
[2017-07-30 00:29] LABS: Glucose,Whole Blood 138 mg/dL (75-99)
[2017-07-30 06:08] LABS: Glucose,Whole Blood 94 mg/dL (75-99)
[2017-07-30] MEDS: ONDANSETRON 4 MG/2 ML VIAL IVP PRN ×2 (06:49→13:53)
[2017-07-30] MEDS: HYDROcodone/APAP 5-325MG 1 EACH TAB PO PRN ×3 (07:20→21:14)
[2017-07-30 07:26] LABS: ALT 30 U/L (9-52); AST 39 U/L (14-36); Albumin 2.2 g/dL (3.5-5.0); Alkaline Phosphatase 63 U/L (38-126); Anion Gap 7 mmol/L; Blood Urea Nitrogen 10 mg/dL (7-17); Calcium 8.1 mg/dL (8.4-10.2); Carbon Dioxide 28 mmol/L (22-30); Chloride 105 mmol/L (98-107); Glucose 91 mg/dL (74-99); Potassium 3.7 mmol/L (3.5-5.1); Sodium 140 mmol/L (137-145); Total Bilirubin 0.2 mg/dL (0.2-1.3); Total Protein 4.5 g/dL (6.3-8.2)
[2017-07-30 07:30] LABS: Basophils % (A) 0 %; Eosinophils # (A) 0.2 k/uL (0-0.7); Eosinophils % (A) 3 %; HCT 28.3 % (34.0-46.0); HGB 8.7 gm/dL (11.4-16.0); Hypochromasia Slight; Lymphocytes # (A) 0.8 k/uL (1.0-4.8); Lymphocytes % (A) 13 %; MCH 28.1 pg (25.0-35.0); MCHC 30.7 g/dL (31.0-37.0); MCV 91.8 fL (80.0-100.0); Mean Platelet Volume 6.4; Monocytes # (A) 0.2 k/uL (0-1.0); Monocytes % (A) 3 %; Neutrophils # (A) 5.2 k/uL (1.3-7.7); Neutrophils % (A) 80 %; Platelet Count 391 k/uL (150-450); RBC 3.09 m/uL (3.80-5.40); RDW 13.5 % (11.5-15.5); WBC 6.5 k/uL (3.8-10.6)
[2017-07-30] MEDS: PANTOPRAZOLE 40 MG/10 ML VIAL IVP SCH (09:23)
[2017-07-30] MEDS: PIPERACILLIN-TAZOBACTAM 3.375 GM in DEXTROSE/WATER 1 50ML.BAG IVPB SCH ×3 (09:23→23:18)
[2017-07-30] MEDS: LOSARTAN 50 MG TAB PO SCH (09:23)
[2017-07-30] MEDS: HEPARIN SODIUM,PORCINE 5,000 UNIT/ML 1 ML VIAL SQ SCH ×3 (09:23→23:18)
[2017-07-30] MEDS: amLODIPine 5 MG TAB PO SCH (09:24)
--- NOTE | 2017-07-30 11:41 | P.PN ---
Subjective Progress Note Date: 07/30/17 Principal diagnosis: SBO Doing well, hasn't been getting out of bed much. Patient was slightly nauseous this morning, did not finish her breakfast. No significant abdominal pain. Objective - Vital Signs Vital signs: Vital Signs Temp 97.8 F 07/30/17 07:18 Pulse 72 07/30/17 07:18 Resp 20 07/30/17 07:18 BP 166/88 07/30/17 07:18 Pulse Ox 94 L 07/30/17 07:18 Intake & Output 07/29/17 07/30/17 07/30/17 18:59 06:59 18:59 Intake Total 1150 1280 Output Total 2040 115 100 Balance -890 1165 -100 Weight 64.41 kg Intake: Intake, IV Titration 800 Amount Dextrose 5%-0.45% NaCl 1, 300 000 ml @ 75 mls/hr IV . [id number] [facility] Rx#:[id number] Piperacillin-Tazobactam 3 100 .375 gm In Dextrose/Water 1 50ml.bag @ 12.5 mls/hr IVPB Q8HR [facility] Rx#: [id number] Sodium Chloride 0.9% 1, 400 000 ml @ 50 mls/hr IV . Q20H [facility] Rx#:[id number] Oral 1150 480 Output: Drainage 40 40 Abdomen 40 40 Urine 2000 Uretheral (Dempsey) 1700 Stool 75 100 Other: Voiding Method Toilet Toilet # Voids 3 1 - Exam General: non toxic, no distress, appears at stated age Derm: warm, dry Head: atraumatic, normocephalic, symmetric Eyes: EOMI, no lid lag, anicteric sclera Mouth: no lip lesion, mucus membranes dry Cardiovascular: S1S2 reg, no murmur, positive posterior tibial pulse bilateral, Lungs: CTA bilateral, no rhonchi, no rales , no accessory muscle use Abdominal: soft, + tender to palpation diffusely, no guarding, no appreciable organomegaly, midline incision with dressing in place, ostomy with good output, CLAY drain with serosanguineous drainage. Ext: no gross muscle atrophy, no edema, no contractures Neuro: CN II-XI grossly intact, no focal neuro deficits Psych: Alert, oriented, appropriate affect - Labs CBC & Chem 7: 07/30/17 06:26 07/30/17 06:26 Labs: Abnormal Lab Results - Last 24 Hours (Table) 07/29/17 07/29/17 07/30/17 Range/Units 12:49 17:14 00:26 RBC (3.80-5.40) m/uL Hgb (11.4-16.0) gm/dL Hct (34.0-46.0) % MCHC (31.0-37.0) g/dL Lymphocytes # (1.0-4.8) k/uL POC Glucose (mg/dL) 114 H 142 H 138 H (75-99) mg/dL Calcium (8.4-10.2) mg/dL AST (14-36) U/L Total Protein (6.3-8.2) g/dL Albumin (3.5-5.0) g/dL 07/30/17 07/30/17 Range/Units 06:26 06:26 RBC 3.09 L (3.80-5.40) m/uL Hgb 8.7 L (11.4-16.0) gm/dL Hct 28.3 L (34.0-46.0) % MCHC 30.7 L (31.0-37.0) g/dL Lymphocytes # 0.8 L (1.0-4.8) k/uL POC Glucose (mg/dL) (75-99) mg/dL Calcium 8.1 L (8.4-10.2) mg/dL AST 39 H (14-36) U/L Total Protein 4.5 L (6.3-8.2) g/dL Albumin 2.2 L (3.5-5.0) g/dL Microbiology - Last 24 Hours (Table) 07/26/17 11:01 Anaerobic Culture - Final Abdomen Anaerobic Gm Negative Bacilli 07/26/17 11:01 Gram Stain - Final Abdomen Wound Culture - Final Pseudomonas aeruginosa Assessment and Plan Plan: Colonic obstruction with intra-abdominal abscess - s/p sigmoid colectomy, small bowel resection with creation of end ostomy 07/26 - Wound cultures growing Pseudomonas, continue zosyn - Tolerating diet. - Pain control - Zofran Hypoglycemia -Resolved. -On D5 half-normal -Continue to monitor blood sugars Hypertension with urgency on arrival -BP controlled -When necessary hydralazine -Continue norvasc and losartan, continue to hold hydrochlorothiazide Chronic kidney disease stage III with baseline creatinine 1.1 -Creatinine currently at baseline -Avoid additional nephrotoxic agents Anticipated acute blood loss anemia -Stable no need to transfuse at this point GERD -PPI DVT prophylaxis: SCDs Discussed with: Patient, nursing
[2017-07-30] MEDS ORDERED: HYDROmorphone 2 MG TAB PO PRN (13:34)
[2017-07-30 13:53] LABS: Glucose,Whole Blood 114 mg/dL (75-99)
[2017-07-30] MEDS ORDERED: MORPHINE SULFATE 4 MG/ML SYRINGE IVP PRN (14:51)
--- NOTE | 2017-07-30 14:56 | P.PN ---
Subjective Progress Note Date: 07/30/17 Patient seen and examined at bedside. He complains of some nausea this morning. Resolved with antibiotic. Had only some of her breakfast. She would like to ambulate today. Pain is overall well-controlled. No additional complaints at this time Objective - Vital Signs Vital signs: Vital Signs Temp 97.8 F 07/30/17 07:18 Pulse 72 07/30/17 07:18 Resp 20 07/30/17 07:18 BP 166/88 07/30/17 07:18 Pulse Ox 94 L 07/30/17 07:18 Intake & Output 07/29/17 07/30/17 07/30/17 18:59 06:59 18:59 Intake Total 1150 1280 120 Output Total 2040 115 100 Balance -890 1165 20 Weight 64.41 kg Intake: Intake, IV Titration 800 Amount Dextrose 5%-0.45% NaCl 1, 300 000 ml @ 75 mls/hr IV . [id number] [facility] Rx#:[id number] Piperacillin-Tazobactam 3 100 .375 gm In Dextrose/Water 1 50ml.bag @ 12.5 mls/hr IVPB Q8HR [facility] Rx#: [id number] Sodium Chloride 0.9% 1, 400 000 ml @ 50 mls/hr IV . Q20H [facility] Rx#:[id number] Oral 1150 480 120 Output: Drainage 40 40 Abdomen 40 40 Urine 2000 Uretheral (Dempsey) 1700 Stool 75 100 Other: Voiding Method Toilet Toilet Toilet # Voids 3 1 - Constitutional General appearance: Present: cooperative - EENT ENT: Present: hearing grossly normal - Respiratory Details: No difficulty with respiration - Gastrointestinal Gastrointestinal Comment(s): Soft, appropriate tenderness, nondistended, no rebound, no guarding, ostomy site pink and patent with stool output, midline incision clean, dry and intact - Musculoskeletal Musculoskeletal: Present: generalized weakness - Psychiatric Psychiatric: Present: A&O x's 3 - Labs CBC & Chem 7: 07/30/17 06:26 07/30/17 06:26 Labs: Abnormal Lab Results - Last 24 Hours (Table) 07/29/17 07/30/17 07/30/17 Range/Units 17:14 00:26 06:26 RBC 3.09 L (3.80-5.40) m/uL Hgb 8.7 L (11.4-16.0) gm/dL Hct 28.3 L (34.0-46.0) % MCHC 30.7 L (31.0-37.0) g/dL Lymphocytes # 0.8 L (1.0-4.8) k/uL POC Glucose (mg/dL) 142 H 138 H (75-99) mg/dL Calcium (8.4-10.2) mg/dL AST (14-36) U/L Total Protein (6.3-8.2) g/dL Albumin (3.5-5.0) g/dL 07/30/17 07/30/17 Range/Units 06:26 13:51 RBC (3.80-5.40) m/uL Hgb (11.4-16.0) gm/dL Hct (34.0-46.0) % MCHC (31.0-37.0) g/dL Lymphocytes # (1.0-4.8) k/uL POC Glucose (mg/dL) 114 H (75-99) mg/dL Calcium 8.1 L (8.4-10.2) mg/dL AST 39 H (14-36) U/L Total Protein 4.5 L (6.3-8.2) g/dL Albumin 2.2 L (3.5-5.0) g/dL Microbiology - Last 24 Hours (Table) 07/26/17 11:01 Anaerobic Culture - Final Abdomen Anaerobic Gm Negative Bacilli 07/26/17 11:01 Gram Stain - Final Abdomen Wound Culture - Final Pseudomonas aeruginosa Assessment and Plan (1) Large bowel obstruction Current Visit: Yes Status: Acute Code(s): K56.609 - UNSP INTESTNL OBST, UNSP TO PARTIAL VERSUS COMPLETE OBST SNOMED Code(s): 756333856 Plan: 72-year-old female status post sigmoid colectomy, small bowel resection, end ostomy creation secondary to large bowel obstruction #1 IV and oral pain control #2 Zosyn to be continued, Pseudomonas on cultures #3 increase activity #4 antiemetics as necessary #5 advance to soft diet #6 ostomy care #7 decisions to be made on placement versus homecare
[2017-07-30] MEDS: SODIUM CHLORIDE 0.9% 1,000 ML IV SCH (17:38)
[2017-07-30 18:18] LABS: Glucose,Whole Blood 114 mg/dL (75-99)
[2017-07-30 22:07] LABS: Glucose,Whole Blood 94 mg/dL (75-99)
[2017-07-31 04:54] LABS: Glucose,Whole Blood 92 mg/dL (75-99)
[2017-07-31 08:04] VITALS: BP 175/90; PULSE 85; RESP 16; TEMP 98.7
[2017-07-31] MEDS: HEPARIN SODIUM,PORCINE 5,000 UNIT/ML 1 ML VIAL SQ SCH (08:26)
[2017-07-31] MEDS: PANTOPRAZOLE 40 MG/10 ML VIAL IVP SCH (08:26)
[2017-07-31] MEDS: amLODIPine 5 MG TAB PO SCH (08:26)
[2017-07-31] MEDS: PIPERACILLIN-TAZOBACTAM 3.375 GM in DEXTROSE/WATER 1 50ML.BAG IVPB SCH (08:30)
--- NOTE | 2017-07-31 09:17 | P.PN ---
Subjective Progress Note Date: 07/31/17 72-year-old female seen and examined at bedside currently sitting up in a chair [facility] had teaching yesterday on taking care of the ostomy feels ready to be discharged home lives with spouse reports no nausea no vomiting. Afebrile sats are 94% did note the blood pressure is elevated this morning 175/90 Laparotomy, sigmoid colectomy, small bowel resection and anastomosis, end ostomy creation done on July 26 Objective - Vital Signs Vital signs: Vital Signs Temp 98.7 F 07/31/17 07:00 Pulse 85 07/31/17 07:00 Resp 16 07/31/17 07:00 BP 175/90 07/31/17 07:00 Pulse Ox 94 L 07/31/17 07:00 Intake & Output 07/30/17 07/31/17 07/31/17 18:59 06:59 18:59 Intake Total 120 504 Output Total 100 100 400 Balance 20 404 -400 Weight 64.41 kg Intake: Intake, IV Titration 204 Amount Sodium Chloride 0.9% 1, 204 000 ml @ 50 mls/hr IV . Q20H [facility] Rx#:[id number] Oral 120 300 Output: Urine 200 Stool 100 100 200 Other: Voiding Method Toilet Bedside Commode # Voids 3 3 - Exam Physical exam 72-year-old female pleasant oriented 3 heart hearing Lungs adequate air movement on room air Heart S1-S2 audible and regular denying chest pain Abdomen soft ostomy liquid stool noted in the ostomy stoma pink midline incision clean dry reports no nausea vomiting urinating no difficulty bowel tones present Extremities no edema noted - Labs CBC & Chem 7: 07/30/17 06:26 07/30/17 06:26 Labs: Abnormal Lab Results - Last 24 Hours (Table) 07/30/17 07/30/17 Range/Units 13:51 18:12 POC Glucose (mg/dL) 114 H 114 H (75-99) mg/dL Assessment and Plan Assessment: Impression Present on admission abdominal pain onset 1 week prior CAT scan abdomen pelvis on presentation revealed a distal colonic obstruction Status post laparotomy, sigmoid colectomy, small bowel resection and anastomosis , and ostomy creation done on July 26 Plan From a surgical perspective patient is felt to be appropriate to be discharged home defer to the timing to the attending will need antibiotics Levaquin Continue postop surgical care Increase active Initiate ostomy teaching DVT and GI prophylaxis Antibiotics will need to be determined due to. purulent Pocket noted during laparotomy Note ALLERGIC to Cipro Levaquin Progress note dictated for Dr. mora The above impression and plan of care have been discussed and directed by signing physician. Mee Coleman nurse practitioner acting as scribe for signing physician.
[2017-07-31] MEDS: LOSARTAN 50 MG TAB PO SCH (09:48)
[2017-07-31] MEDS ORDERED: ALPRAZolam 0.5 MG TAB PO PRN (10:02)
--- NOTE | 2017-07-31 12:07 | P.DS ---
Providers Date of admission: 07/24/17 18:38 Expected date of discharge: 07/31/17 Attending physician: [place]ia Mello DO Consults: 07/24/17 18:21 Consult Physician Stat Consulting Provider: Uri Asif Consult Reason/Comments: Colonic mass versus stricture Do you want consulting provider notified?: Yes Primary care physician: [facility] Course: 72-year-old female with a past medical history of essential hypertension, GERD, overactive bladder who presented to the ER with chief complaint of severe intermittent left lower abdominal pain over the week before presentation, with associated constipation, and intermittent nausea. The patient was seen in the ER 2 days prior, was given an enema for what was thought at that time to be simple constipation. The patient has a history of overactive bladder and was started on Detrol, she also recently had her pessary placed by Parts Delivery Driver Dr. Herrera yesterday, the patient reports frequency, urgency and pelvic pressure, she denied any dysuria but reported subjective fevers and chills. She denied any weight loss, but reported poor appetite in the last week. In the ER work up revealed a slightly elevated creatinine of 1.1 which appears to be her baseline, thrombocytosis, and slightly low sodium of 135. Labs also revealed a significant urinary tract infection and because of that she was started on ceftriaxone initially. She had a CT abdomen and pelvis that showed a dilated large bowel down to the junction of the descending colon and sigmoid colon with a transition point and stricture or mass lesion obstructing the descending colon. Surgery was consulted. Patient was kept NPO and then subsequently had laparotomy, sigmoid colectomy, small bowel resection and anastomosis, lysis of adhesions and end ostomy creation on 07/26. At that point antibiotic coverage was expanded to Zosyn instead of ceftriaxone. After surgery she had an epidural for pain control and a Dempsey catheter. She also had an NG tube in place which was discontinued on the morning of 07/28. On the morning of 07/28 her laboratory analysis revealed a slightly low glucose and she was given 1/2 amp of D50 and fluids were switched from LR to D5 half normal. Pathology report significant for DIVERTICULOSIS WITH DIVERTICULITIS AND PERICOLIC ABSCESS FORMATION. REACTIVE SEROSAL CHANGES INCLUDING FIBROUS ADHESION FORMATION. Follow up blood cultures revealed pseudomonas aeruginosa sensitive to all antibiotics tested. When the patient's pain was controlled the epidural was discontinued by anesthesia and patient was started on oral pain medications. Her diet was advanced gradually from clears to soft mechanical diet. Case was discussed with the surgeon in details. She received physical therapy and rehabilitation who advised home care for her. The case was discussed with care management arranged for the patient to have home care upon discharge. Upon discharge patient was instructed to follow-up with her primary care physician as well as the surgeon. Time for discharge 40 minutes Patient Condition at Discharge: Stable Plan - Discharge Summary Discharge Rx Participant: Yes New Discharge Prescriptions: New HYDROcodone/APAP 5-325MG [Alsey 5-325] 1 each PO Q4HR PRN tab PRN Reason: Pain Amoxicillin/Potassium Clav [Augmentin 875-125 Tablet] 1 tab PO Q12HR 10 Days #20 tab HYDROcodone/APAP 5-325MG [Alsey 5-325] 1 tab PO Q4HR PRN #30 tab PRN Reason: Mild Pain Continue Simvastatin [Zocor] 20 mg PO HS Cholecalciferol [Vitamin D3] 1,000 unit PO DAILY ALPRAZolam [Xanax] 0.5 mg PO DAILY PRN PRN Reason: Anxiety traMADol HCl [Ultram] 50 mg PO TID PRN PRN Reason: Pain amLODIPine [Norvasc] 5 mg PO DAILY Sertraline HCl [Zoloft] 50 mg PO DAILY Omeprazole 40 mg PO DAILY Meloxicam 15 mg PO DAILY Losartan/Hydrochlorothiazide [Losartan-Hctz 100-25 mg Tab] 1 tab PO DAILY L.acidoph,Paracasei, B.lactis [Probiotic] 1 cap PO DAILY Gabapentin [Neurontin] 100 mg PO BID Biotin 5 mg PO DAILY Discharge Medication List ALPRAZolam [Xanax] 0.5 mg PO DAILY PRN 03/17/17 [History] Biotin 5 mg PO DAILY 03/17/17 [History] Cholecalciferol [Vitamin D3] 1,000 unit PO DAILY 03/17/17 [History] Gabapentin [Neurontin] 100 mg PO BID 03/17/17 [History] L.acidoph,Paracasei, B.lactis [Probiotic] 1 cap PO DAILY 03/17/17 [History] Losartan/Hydrochlorothiazide [Losartan-Hctz 100-25 mg Tab] 1 tab PO DAILY [History] Meloxicam 15 mg PO DAILY 03/17/17 [History] Omeprazole 40 mg PO DAILY 03/17/17 [History] Sertraline HCl [Zoloft] 50 mg PO DAILY 03/17/17 [History] Simvastatin [Zocor] 20 mg PO HS 03/17/17 [History] amLODIPine [Norvasc] 5 mg PO DAILY 03/17/17 [History] traMADol HCl [Ultram] 50 mg PO TID PRN 03/17/17 [History] Amoxicillin/Potassium Clav [Augmentin 875-125 Tablet] 1 tab PO Q12HR 10 Days # 20 tab 07/31/17 [Rx] HYDROcodone/APAP 5-325MG [Alsey 5-325] 1 each PO Q4HR PRN tab 07/31/17 [Rx] HYDROcodone/APAP 5-325MG [Alsey 5-325] 1 tab PO Q4HR PRN #30 tab 07/31/17 [Rx] Follow up Appointment(s)/Referral(s): [facility], [NON-STAFF] - As Needed Filiberto Guzman MD [Primary Care Provider] - 1-2 days (Office closed Thursday. Please call Thursday to make follow-up appt.) Uri Asif DO [Doctor of Osteopathic Medicine] - 08/07/17 11:15 am Patient Instructions/Handouts: Colostomy Care (GEN) Activity/Diet/Wound Care/Special Instructions: Colostomy Care Instructions for transition to home: Last date of appliance change: 07.30.2017 Mrs Ingram will be sent home three appliances [facility]pouches) [id number] barrier with Candelario seal ring applied into the skin crease for home use and also additional accessories as listed above If the above pouching system leaks Mrs Ingram as has Coloplast convex pouching system #[id number] No sting prep pads to the area around the stoma with every appliance change. Mrs Ingram will be receiving sample ostomy supplies from [facility] within 5 days of arrival to home for home use. Mrs Ingram is to change the ostomy pouching system every 3-5 days and as needed with the Home Health RN Mrs Ingram is to empty the ostomy pouch when the bag is 1/2 to 1/3 full in the bathroom either sitting on the toilet or sitting on a chair facing the toilet bowl. The Home Health Rn should come out to the house the day after your discharge. Home Health System please make sure to set up Mrs Ingram with a [employer] to obtain ostomy supplies to her home. [facility] - [phone] - will deliver to bedside prior to discharge
[2017-07-31] MEDS: HYDROcodone/APAP 5-325MG 1 EACH TAB PO PRN (13:49)
== END 2017-07-31 14:33 | disposition home health service (06) | DRG 330 ==
LOC: EC 11:19 → 6PED 18:38 → 3SUR 07-26 13:37
PROVIDERS: ADMIT Internal Medicine; ATTEND Internal Medicine
PROC: 0DB80ZZ Excision of Small Intestine, Open Approach (ICD-10-PCS; 2017-07-26)
PROC: 0D1M0Z4 Bypass Descending Colon to Cutaneous, Open Approach (ICD-10-PCS; 2017-07-26)
PROC: 0D9670Z Drainage of Stomach with Drainage Device, Via Natural or Artificial Opening (ICD-10-PCS; 2017-07-26)
PROC: 0DTN0ZZ Resection of Sigmoid Colon, Open Approach (ICD-10-PCS; principal; 2017-07-26 08:30)
DX: K56.699 Other intestinal obstruction unspecified as to partial versus complete obstruction (principal); E87.1 Hypo-osmolality and hyponatremia; D62 Acute posthemorrhagic anemia; N39.0 Urinary tract infection, site not specified; N18.3 Chronic kidney disease, stage 3 (moderate); K57.20 Diverticulitis of large intestine with perforation and abscess without bleeding; K21.9 Gastro-esophageal reflux disease without esophagitis; N32.81 Overactive bladder; E16.2 Hypoglycemia, unspecified; I12.9 Hypertensive chronic kidney disease with stage 1 through stage 4 chronic kidney disease, or unspecified chronic kidney disease; D47.3 Essential (hemorrhagic) thrombocythemia; E78.5 Hyperlipidemia, unspecified; F41.9 Anxiety disorder, unspecified; M19.91 Primary osteoarthritis, unspecified site; M54.9 Dorsalgia, unspecified; Z79.1 Long term (current) use of non-steroidal anti-inflammatories (NSAID); Z79.899 Other long term (current) drug therapy; Z86.010 Personal history of colon polyps; Z90.710 Acquired absence of both cervix and uterus; Z90.49 Acquired absence of other specified parts of digestive tract; Z88.1 Allergy status to other antibiotic agents; Z88.2 Allergy status to sulfonamides; Z98.42 Cataract extraction status, left eye
CPT/HCPCS: 36415; 71045; 74019; 74177; 80048; 80053; 81001; 82150; 82728; 83540; 83550; 83605; 83690; 83735; 84100; 85025; 85027; 85610; 85730; 87070; 87075; 87077; 87086; 87186; 87205; 88307; 96361; 96374; 96375; 96376; 99283; 99285

== ENCOUNTER → 2018-05-07 | Outpatient (CLI) | payer MEDICARE, BC ==
--- NOTE | 2018-05-10 11:41 | MM ---
Reason for exam: screening (asymptomatic). Last mammogram was performed 1 year and 1 month ago. History: Patient is postmenopausal. Family history of premenopausal breast cancer in mother. 2 excisional biopsies of the left breast. Excisional biopsy of the right breast. Took estrogen for 18 years. Physical Findings: A clinical breast exam by your physician is recommended on an annual basis and results should be correlated with mammographic findings. MG 3D Screening Mammo W/Cad Bilateral CC and MLO view(s) were taken. Prior study comparison: April 13, 2017, bilateral MG 3d screening mammo w/cad. April 01, 2016, bilateral MG 3d screening mammo w/cad. There are scattered fibroglandular densities. Benign calcifications in the right breast. No significant changes when compared with prior studies. ASSESSMENT: Benign, BI-RAD 2 RECOMMENDATION: Routine screening mammogram of both breasts in 1 year.
== END | disposition home or self-care (01) ==
LOC: RADMAMWWP 11:36
PROVIDERS: ATTEND Internal Medicine
DX: Z12.31 Encounter for screening mammogram for malignant neoplasm of breast (principal)
CPT/HCPCS: 77063; 77067

== ENCOUNTER → 2019-06-07 | Outpatient (CLI) | payer MEDICARE, BC ==
[2019-06-07 08:48] LABS: Basophils % (A) 1 %; Eosinophils # (A) 0.2 k/uL (0-0.7); Eosinophils % (A) 3 %; HCT 45.7 % (34.0-46.0); HGB 14.6 gm/dL (11.4-16.0); Lymphocytes # (A) 1.4 k/uL (1.0-4.8); Lymphocytes % (A) 27 %; MCH 30.7 pg (25.0-35.0); Mean Platelet Volume 6.9; Monocytes # (A) 0.2 k/uL (0-1.0); Monocytes % (A) 4 %; Neutrophils # (A) 3.3 k/uL (1.3-7.7); Neutrophils % (A) 64 %; Platelet Count 274 k/uL (150-450); RBC 4.77 m/uL (3.80-5.40); WBC 5.2 k/uL (3.8-10.6)
[2019-06-07 08:58] LABS: Albumin 4.6 g/dL (3.5-5.0); Potassium 4.4 mmol/L (3.5-5.1); Total Bilirubin 0.7 mg/dL (0.2-1.3); Total Protein 7.5 g/dL (6.3-8.2)
--- NOTE | 2019-06-07 14:04 | BD ---
EXAMINATION TYPE: Axial Bone Density DATE OF EXAM: 06/07/2019 COMPARISON: Prior bone scan 2012 CLINICAL HISTORY: Postmenopausal female. Height: 59 Weight: 141.8 FRAX RISK QUESTIONS: Alcohol (3 or more units per day): NO Family History (Parent hip fracture): NO Glucocorticoids (More than 3mos): NO (Ex: prednisone, prednisolone, methylprednisolone, dexamethasone, and hydrocortisone). History of Fracture in Adulthood: NO Secondary Osteoporosis: 1. Type 1 Diabetes: NO 2. Hyperthyroidism: NO 3. Menopause before 45: NO 4. Malnutrition: NO 5. Chronic liver disease: NO Rheumatoid Arthritis: NO Current Tobacco Use: NO RISK FACTORS HISTORY OF: Active: YES Diet low in dairy products/other sources of calcium: NO Postmenopausal woman: HYSTERECTOMY AGE 36 Lost more than 2 inches in height since high school: YES MEDICATIONS: HYZAAR, PRILOSEC, ZOCOR, DITROPAN, NEURONTIN ,ZANTAC Additional History: EXAM MEASUREMENTS: Bone mineral densitometry was performed using the WeGush System. Bone mineral density as measured about the Lumbar spine is: ----- L1-L4(G/cm2): 1.239 T Score Values are as follows: ----- L2: -0.6 ----- L3: 1.6 ----- L4: 1.9 ----- L1-L4: 0.5 Bone mineral density has: DECREASED -7.9 % since study of: 07.21.2012 Bone mineral density about the R hip (g/cm2): 0.776 Bone mineral density about the L hip (g/cm2): 0.737 T Score values are as follows: -----R Neck: -1.9 -----L Neck: -2.2 -----R Total: -1.0 -----L Total: -1.6 Bone mineral density has: DECREASED -2.4 % since study of: 07.21.2012 IMPRESSION: Osteopenia (T Score between -2.5 and -1) remains present. There remains slightly increased risk of fracture and the patient may be considered for treatment. Re-Screen 2-5 years. NOTE: T-SCORE=SD OF THE YOUNG ADULT MEAN.
--- NOTE | 2019-06-09 13:29 | MM ---
Reason for exam: screening (asymptomatic). Last mammogram was performed 1 year and 1 month ago. History: Patient is postmenopausal. Family history of premenopausal breast cancer in mother. 2 excisional biopsies of the left breast. Excisional biopsy of the right breast. Took estrogen for 18 years. Physical Findings: A clinical breast exam by your physician is recommended on an annual basis and results should be correlated with mammographic findings. MG 3D Screening Mammo W/Cad Bilateral CC and MLO view(s) were taken. Prior study comparison: May 07, 2018, bilateral MG 3d screening mammo w/cad. April 13, 2017, bilateral MG 3d screening mammo w/cad. There are scattered fibroglandular densities. Benign appearing calcifications in the right breast. No suspicious abnormality. Post surgical change of both breasts. No significant changes when compared with prior studies. ASSESSMENT: Benign, BI-RAD 2 RECOMMENDATION: Routine screening mammogram of both breasts in 1 year.
== END | disposition home or self-care (01) ==
LOC: RADMAMWWP 07:32
PROVIDERS: ATTEND Internal Medicine
DX: Z12.31 Encounter for screening mammogram for malignant neoplasm of breast (principal); M85.80 Other specified disorders of bone density and structure, unspecified site; I10 Essential (primary) hypertension; E78.2 Mixed hyperlipidemia; E55.9 Vitamin D deficiency, unspecified
CPT/HCPCS: 77063; 77067; 77080; 80053; 80061; 82306; 85025

== ENCOUNTER 2020-07-09 10:55 | Day surgery (SDC) | payer MEDICARE, BC ==
[2020-07-03 12:15] VITALS: BMI 27.3
[~2020-07-09 10:55] MED LIST changes: +ACETAMINOPHEN TAB 500 MG TAB PO PRN; +GABAPENTIN 300 MG CAP PO PRN; -LACTATED RINGERS 1,000 ML IV SCH; +MELOXICAM 7.5 MG TAB PO PRN; +TRANEXAMIC ACID 1,000 MG in SODIUM CHLORIDE 0.9% 100 ML IVPB PRN
[2020-07-09] MEDS ORDERED: LACTATED RINGERS 1,000 ML IV ONE ×2 (11:51→13:50)
[2020-07-09] MEDS ORDERED: DEXAMETHASONE SOD PHOSPHATE 4 MG/ML 1 ML VIAL IVP ONE (11:52)
[2020-07-09] MEDS ORDERED: ONDANSETRON 4 MG/2 ML VIAL IVP ONE ×2 (11:52→12:13)
[2020-07-09] MEDS ORDERED: MIDAZOLAM 2 MG/2 ML VIAL IV ONE (11:52)
[2020-07-09] MEDS ORDERED: HYDROmorphone 0.5 MG/0.5 ML SYRINGE IVP PRN ×3 (12:13→14:30)
[2020-07-09] MEDS ORDERED: LIDOCAINE 1% (10MG/ML) FOR IV START INTRADERMA PRN (12:13)
[2020-07-09] MEDS ORDERED: MIDAZOLAM 2 MG/2 ML VIAL IV PRN (12:13)
[2020-07-09] MEDS ORDERED: fentaNYL (PF) 50 MCG/ML 2 ML AMP IVP PRN (12:13)
[2020-07-09] MEDS ORDERED: DEXAMETHASONE SOD PHOSPHATE 4 MG/ML 1 ML VIAL IV ONE (12:13)
[2020-07-09] MEDS ORDERED: LACTATED RINGERS 1,000 ML IV SCH (12:13)
[2020-07-09] MEDS ORDERED: TRANEXAMIC ACID 1,000 MG/10 ML VIAL ONE (12:34)
[2020-07-09] MEDS ORDERED: WATER FOR INJECTION, STERILE 10 ML VIAL IV ONE (12:34)
[2020-07-09] MEDS ORDERED: ePHEDrine SULFATE/0.9% NACL/PF 50 MG/5 ML SYRINGE IV ONE (12:34)
[2020-07-09] MEDS ORDERED: SUCCINYLCHOLINE CHLORIDE 100 MG/5 ML SYR IV ONE (12:34)
[2020-07-09] MEDS ORDERED: LABETALOL 5 MG/ML VIAL MDV ONE (12:34)
[2020-07-09] MEDS ORDERED: fentaNYL (PF) 50 MCG/ML 2 ML AMP ONE (12:34)
[2020-07-09] MEDS ORDERED: SODIUM CHLORIDE 0.9% 100 ML BAG ONE (12:34)
[2020-07-09] MEDS ORDERED: LIDOCAINE 1% INJ 10MG/ML (20 ML MDV) ONE (12:34)
[2020-07-09] MEDS ORDERED: PROPOFOL 10 MG/ML 20 ML VIAL IV ONE (12:34)
[2020-07-09] MEDS ORDERED: hydrALAZINE HCL 20 MG/ML 1 ML VIAL ONE (12:34)
[2020-07-09] MEDS ORDERED: ceFAZolin 3,000 MG in SODIUM CHLORIDE 0.9% IRRIGATIO 3,000 ML IRRIGATION ONE (12:39)
[2020-07-09] MEDS: ROPIVACAINE/EPI/CLONIDINE/KET 50 ML SYRINGE MISCELLANE PRN ×2 (13:02→13:37)
--- NOTE | 2020-07-09 13:46 | P.OP ---
Date of Procedure: 07/09/20 Preoperative Diagnosis: Severe osteoarthritis left knee Postoperative Diagnosis: Severe osteoarthritis left knee Procedure(s) Performed: Left total knee arthroplasty Implants: Hernandez [employer] Nephew Journey II CR Oxinium cruciate retaining femoral component size 4, left [employer]hew Journey nonporous tibial baseplate size 2, left [employer]hew Journey II, XLPE Deep Dished articular insert, size 10 mm, Size 1-2, left [employer]hew Journey Linette II resurfacing patellar component, oval, 29 mm All components were cemented using Palacos R bone cement The articulation is Oxinium on polyethylene Anesthesia: KRISHNA Surgeon: Luis Watson Merchant Banker #1: Carol Ann Broderick Estimated Blood Loss (ml): 25 Pathology: other (Bone and cartilage) Condition: stable Disposition: PACU Indications for Procedure: After failure of conservative treatment we discussed the surgical and nonsurgical treatment options at length. Patient wishes to proceed with a total knee arthroplasty. Complications specific to this procedure were discussed at length, including but not limited to infection, bleeding, stiffness, and nerve injury. Covid-19 was also discussed at length with the patient, and they are aware of the current policies and procedures. The patient was given the option of delaying surgery, but they elect to proceed knowing these risks. Patient is aware of all these complications and informed consent was obtained Operative Findings: The operative findings are consistent with severe osteoarthritis of the left knee Description of Procedure: Patient was seen in the preoperative area and the consent was reviewed and the operative site was marked with a skin marker. The patient verified the procedure and the operative site. An adductor canal pain catheter was placed by anesthesia in the preoperative area. The patient was then brought to the operating room and given preoperative antibiotics intravenously. A gram of transexamic acid was given intravenously. A general anesthetic was administered by the anesthesia department. A tourniquet was placed on the upper thigh and the lower extremity was prepped with chlorhexidine and draped in usual sterile fashion. A universal timeout was then performed which confirmed the patient's name, surgical site, ALLERGIES, and consent. The lower extremity was then exsanguinated and tourniquet was inflated to 250 mmHg. A standard anterior midline approach to the knee was performed. The skin and subcutaneous tissue were sharply dissected down to the patellar tendon. A medial parapatellar arthrotomy was then performed. The knee was then extended, the patellar was everted, and the knee was again flexed. The infra-patellar fat pad was removed in order to enhance exposure. The anterior horns of both menisci were excised, and a release was performed to the posterior medial aspect of the knee. On gross visual inspection, there was complete loss of articular cartilage in the medial and patellofemoral joint spaces. There was also significant cartilage damage in the lateral compartment. There were multiple periarticular osteophytes globally about the knee which were then removed with a Ronguer. The femoral canal was then opened with the 9.5 mm intramedullary drill. The 8 mm intramedullary aruna was then inserted into the femoral canal with the distal femoral cutting guide set for 5 of valgus. The distal femoral cutting block was then pinned in place. The intramedullary aruna was then removed, and the distal femur was then cut. The cutting block was then removed and the cut was checked for symmetry. The resected bone was then measured to confirm the appropriate distal femoral resection. Next, the sizing guide was then placed and set for 3 external rotation based off of the epicondylar axis and Whitesides line. Pins were then placed and the drill holes, and the femur was sized with the sizing stylus. The pins were then removed, and the sizing guide was then removed. The spikes of the femoral block was then placed into the predrilled holes, and malleted into place. Two 45 mm pins were then placed into the fixation holes on the cutting block. An lalita wing was then used to ensure there would be no notching with the anterior cut. The anterior condyles were cut without notching. The anterior chord cut was then performed, followed by the posterior cut, posterior chamfer cut, and the anterior chamfer cut. The collateral ligaments were protected during the entire process. The cutting block was then removed. Any remaining bone and osteophytes were removed from t he femur with a Rominger. The femoral canal was plugged with autologous bone. Attention was then directed to the tibia. The remaining ACL was removed with a Ronguer, and the tibia was then gently subluxed forward with a large bent knee retractor. Any remaining menisci were excised. The posterior lateral corner was cauterized in order to coagulate the lateral geniculate artery. The extra medullary tibial cutting guide was then placed, set for the appropriate rotation, slope, and depth of resection. The proximal tibia cutting guide was then pinned in place. Proximal tibia was then cut and sized. The femoral trial was placed. A narrow saw blade was then used to remove the anterior intracondylar femoral bone. The CR notch trial was then placed. The tibial trial was placed with the appropriate-sized insert. The knee was able to fully extend and flex to 130 and was stable throughout all range of motion. The knee was then extended and the patella was everted. Patella was then measured, and then using an osteotomy guide, the patella was cut at the appropriate level. The patella was then measured and drilled and the patella trial was then placed. The knee was then taken through range of motion with the patella trial and the patella tracked normally using the no thumbs technique.. The knee was then extended patella trial was then removed and the patella was everted. Knee was then flexed and lug holes were drilled through the femoral trial and the femoral trial was then removed. The tibial was then re-exposed, and the tibial broach guide was then pinned in place after it was set for the appropriate rotation to allow for the most coverage without overhang. The tibia was then reamed and broached. The cut surfaces of bone were then irrigated with pulsatile lavage. The posterior structures were injected with the ropivacaine solution. The knee was also irrigated with Irrisept solution. The components were then opened, the cement was mixed, and the components were then cemented in place. The cement was allowed to harden with the knee in full extension. While the cement was hardening, the remaining soft tissues were then injected with a ropivacaine willa ution, which consisted of 246.25 mg of ropivacaine, 0.5 mg of epinephrine, 30 mg of Toradol, 80 g of clonidine, and 48.45 mL of sterile water, for a total of 100 mL of fluid injected. After the cemented hardened. The tourniquet was released, and hemostasis was obtained. A second gram of transexamic acid was given intravenously. The knee was again irrigated. The knee was again taken through range of motion and found to be stable throughout all range of motion of 0-130, and the patella tracked normally. The fascia was then closed with 0 Vicryl followed by #2 strata fix suture. The subcutaneous tissue was closed with 3-0 Vicryl and 3-0 strata fix. Exofin glue was used for the skin and placed with the knee in flexion. After the glue had dried, and Optafoam silver impregnated dressing was applied. The patient was then transferred to recovery room in stable condition. The him assistant DOMI Weathers was required due the complexity surgery and the need for a skilled surgical garment fitter. She assisted in positioning, draping, retraction, and closure of the wound.
[2020-07-09] MEDS ORDERED: ROPIVACAINE 0.2%-NS ON-Q PUMP 1,090 MG, EMPTY PAIN BALL 1 EACH MISCELLANE PRN (13:51)
--- NOTE | 2020-07-09 13:53 | P.ANPRN ---
Procedure Note - Anesthesia - Nerve Block Performed Left Adductor Canal Time Out Performed: Yes (11:53) Date of Procedure: 07/09/20 Procedure Start Time: :53 Procedure Stop Time: 12:08 Location of Patient: PreOp Indication: Acute Post-Operative Pain, Requested by Surgeon (Dr Luis Watson) Sedation Type: Sedate with meaningful contact maintained Preparation: Sterile Prep, Sterile Dressing Position: Supine Catheter: Indwelling Needle Types: Pajunk Needle Gauge: 21 Ultrasound used to visualize needle placement: Yes Ultrasound used to observe medication spread: Yes Injectate: 0.5% Ropivacaine (see comment for volume) (20cc) Blood Aspirated: No Pain Paresthesia on Injection Noted: No Resistance on Injection: Normal Image Stored and Saved: Yes Events: Uneventful and Well Tolerated
[2020-07-09] MEDS ORDERED: SODIUM CHLORIDE 0.9% 1,000 ML IV SCH ×2 (14:30→18:15)
[2020-07-09] MEDS ORDERED: NALOXONE 0.4 MG/ML 1 ML VIAL IV PRN ×2 (14:30→18:15)
[2020-07-09] MEDS ORDERED: ONDANSETRON 4 MG/2 ML VIAL IVP PRN (14:30)
[2020-07-09] MEDS ORDERED: HYDROmorphone 0.2 MG/1 ML SYRINGE IVP PRN (14:30)
[2020-07-09] MEDS ORDERED: HYDROcodone/APAP 7.5-325MG 1 EACH TAB PO PRN (14:32)
[2020-07-09 14:40] VITALS: RESP 16
--- NOTE | 2020-07-09 15:03 | XR ---
EXAMINATION TYPE: XR knee limited LT DATE OF EXAM: 07/09/2020 CLINICAL HISTORY: Left knee pain and arthritis status post total knee replacement. TECHNIQUE: Portable AP and crosstable lateral views of the left knee are obtained immediately postop eratively. COMPARISON: None FINDINGS: [place] osseous structures are demineralized. Metallic hardware from total left knee arthrop lasty is seen and appears satisfactory in alignment and position. There is evidence of recent surger y with diffuse subcutaneous gas and soft tissue swelling noted. IMPRESSION: METALLIC HARDWARE FROM TOTAL LEFT KNEE ARTHROPLASTY IS SATISFACTORY IN ALIGNMENT.
[2020-07-09] MEDS: HYDROcodone/APAP 7.5-325MG 1 EACH TAB PO PRN (17:44)
[2020-07-09] MEDS ORDERED: MAGNESIUM HYDROXIDE 2,400 MG/10 ML CUP PO PRN (18:15)
[2020-07-09] MEDS ORDERED: bisacodyL 10 MG SUPP RECTAL PRN (18:15)
[2020-07-09] MEDS: ASPIRIN 325 MG TAB PO SCH (20:19)
[2020-07-09] MEDS: METOPROLOL TARTRATE 50 MG TAB PO SCH (20:19)
[2020-07-09] MEDS ORDERED: SENNOSIDES-DOCUSATE SODIUM 1 EACH TAB PO SCH (21:00)
[2020-07-10] MEDS: HYDROcodone/APAP 7.5-325MG 1 EACH TAB PO PRN ×2 (05:13→10:50)
[2020-07-10] MEDS: ASPIRIN 325 MG TAB PO SCH (07:40)
[2020-07-10] MEDS: METOPROLOL TARTRATE 50 MG TAB PO SCH (07:41)
[2020-07-10 08:46] VITALS: BP 143/67; PULSE 61; TEMP 98.4
[2020-07-10] MEDS ORDERED: LOSARTAN 50 MG TAB PO SCH (09:00)
[2020-07-10] MEDS ORDERED: MELOXICAM 7.5 MG TAB PO SCH (09:00)
[2020-07-10] MEDS ORDERED: hydroCHLOROthiazide 25 MG TAB PO SCH (09:00)
[2020-07-10] MEDS ORDERED: amLODIPine 5 MG TAB PO SCH (09:00)
--- NOTE | 2020-07-10 09:40 | P.CONS ---
History of Present Illness - Reason for Consult Consult date: 07/10/20 Medical management - History of Present Illness This is a 75-year-old female patient of Dr. Morrow with past medical history of hypertension, hyperlipidemia, generalized osteoarthritis, irritable bowel syndrome, chronic back pain with recent epidural injections and peripheral neuropathy. Patient was brought into the hospital by Dr. Watson status post left total knee arthroplasty. Patient states that she had high blood pressure readings yesterday for which she believe she received IV medication. Blood pressure this morning is improved at 143/67. Heart rate is 61, pulse ox 99% on room air, afebrile. Patient has ambulated in the hallway and his work with physical therapy including stairs and has done very well. Pain is currently controlled. Patient is anticipating discharge home later today. She is on aspirin for DVT prophylaxis. Patient encouraged to use incentive spirometry. Review of Systems Constitutional: Denies anorexia, Denies chills, Denies fatigue, Denies fever, Denies weakness Eyes: denies blurred vision, denies pain Ears, nose, mouth and throat: Denies dysphagia, Denies headache, Denies nasal congestion, Denies nasal discharge, Denies sore throat, Denies vertigo Cardiovascular: Denies chest pain, Denies decreased exercise tolerance, Denies dyspnea on exertion, Denies edema, Denies lightheadedness, Denies shortness of breath, Denies syncope Respiratory: Denies cough, Denies cough with sputum, Denies dyspnea, Denies excessive sputum, Denies hemoptysis, Denies home oxygen, Denies wheezing Gastrointestinal: Denies abdominal pain, Denies diarrhea, Denies loss of appetite, Denies nausea, Denies vomiting Genitourinary: Denies difficulty voiding, Denies dysuria, Denies hematuria, Denies urgency, Denies urinary frequency Menstruation: Reports postmenopausal Musculoskeletal: Denies frequent falls, Denies gait dysfunction, Denies muscle weakness, Denies myalgias Integumentary: Denies pruritus, Denies rash, Denies wounds Neurological: Denies change in mentation, Denies change in speech, Denies gait dysfunction, Denies numbness, Denies weakness Psychiatric: Denies anxiety, Denies depression Endocrine: Denies fatigue, Denies weight change Past Medical History Past Medical History: GERD/Reflux, Hyperlipidemia, Hypertension, Osteoarthritis (OA) Additional Past Medical History / Comment(s): Back pain, sinus drainage, hx bowel blockage r/t diverticulosis colostomy x2 months. IBS History of Any Multi-Drug Resistant Organisms: None Reported Past Surgical History: Bowel Resection, Breast Surgery, Cholecystectomy, H ysterectomy Additional Past Surgical History / Comment(s): Cataract surgery wilda. , Cysts removed from breasts-benign. Pain procedures, colostomy with reversal Past Anesthesia/Blood Transfusion Reactions: No Reported Reaction Past Psychological History: Anxiety Smoking Status: Never smoker Past Alcohol Use History: None Reported Additional Past Alcohol Use History / Comment(s): Patient is a lifelong nonsmoker, no alcohol use, no illicit drug use. Patient lives at home with her . Past Drug Use History: None Reported - Past Family History Mother Family Medical History: Cancer Additional Family Medical History / Comment(s): Mother at age 49 from breast cancer and bowel cancer. Father Family Medical History: Cancer Additional Family Medical History / Comment(s): Father at age 64 from lung cancer. Brother(s) Additional Family Medical History / Comment(s): Patient has one brother that from a myocardial infarction with history of COPD. Patient does not have any sisters. Patient has 3 children and one son had a myocardial infarction at age 58. Medications and Allergies Home Medications Medication Instructions Recorded Confirmed Type ALPRAZolam [Xanax] 0.25 mg PO DAILY PRN 03/17/17 07/03/20 History Biotin 5 mg PO DAILY 03/17/17 07/03/20 History Cholecalciferol [Vitamin D3 (25 1,000 unit PO DAILY 03/17/17 07/03/20 History Mcg = 1000 Iu)] Gabapentin [Neurontin] 100 mg PO DAILY 03/17/17 07/03/20 History L.acidoph,Paracasei, B.lactis 1 cap PO DAILY 03/17/17 07/03/20 History [Probiotic] Omeprazole 40 mg PO DAILY 03/17/17 07/03/20 History Sertraline HCl [Zoloft] 50 mg PO DAILY 03/17/17 07/03/20 History amLODIPine [Norvasc] 5 mg PO DAILY 03/17/17 07/03/20 History HYDROcodone/APAP 5-325MG [[place] 1 each PO Q4HR PRN tab 07/31/17 07/03/20 Rx 5-325] Acetaminophen Tab [Tylenol] 500 mg PO DAILY PRN 07/03/20 07/03/20 History Cannabidiol (Cbd) [Epidiolex] 1 dose PO DAILY PRN 07/03/20 07/03/20 History Loratadine [Claritin] 10 mg PO DAILY 07/03/20 07/03/20 History Losartan Potassium [Cozaar] 100 mg PO DAILY 07/03/20 07/03/20 History Magnesium Chloride [Slow-Mag] 64 mg PO DAILY 07/03/20 07/03/20 History Metoprolol Tartrate [Lopressor] 50 mg PO BID 07/03/20 07/03/20 History Mirabegron [Myrbetriq] 25 mg PO DAILY 07/03/20 07/03/20 History Rosuvastatin [Crestor] 10 mg PO DAILY 07/03/20 07/03/20 History Vitamin E Acetate [Vitamin E] 180 unit PO DAILY 07/03/20 07/03/20 History hydroCHLOROthiazide 25 mg PO DAILY 07/03/20 07/03/20 History Aspirin 325 mg PO BID #60 tab 07/09/20 Rx Celecoxib [CeleBREX] 200 mg PO DAILY 5 Days #5 capsule 07/09/20 Rx Gabapentin 300 mg PO BID 5 Days #10 cap 07/09/20 Rx HYDROcodone/APAP 7.5-325MG [[place] 1 - 2 tab PO Q6H PRN #32 tab 07/09/20 Rx 7.5-325] Ondansetron [Zofran ODT] 4 mg PO Q8HR PRN #10 tab 07/09/20 Rx Sennosides [Senokot] 2 tab PO DAILY PRN #60 tablet 07/09/20 Rx Sennosides-Docusate Sodium 2 each PO HS tab 07/10/20 Rx [Senokot-S] Allergies Allergy/AdvReac Type Severity Reaction Status Date / Time ciprofloxacin [From Cipro] Allergy Dyspnea Verified 07/09/20 11:14 ciprofloxacin HCl Allergy Dyspnea Verified 07/09/20 11:14 [From Cipro] Sulfa (Sulfonamide Allergy Rash/Hives Verified 07/09/20 11:14 Antibiotics) Physical Exam Vitals: Vital Signs Temp Pulse Pulse Resp BP Pulse Ox 07/10/20 08:00 98.4 F 61 16 143/67 99 07/10/20 01:44 97.5 F L 58 L 115/62 95 07/09/20 19:25 97.8 F 74 121/69 96 07/09/20 16:00 71 16 153/72 99 07/09/20 15:33 62 16 164/74 99 07/09/20 15:15 64 16 152/77 97 07/09/20 15:00 65 16 146/60 99 07/09/20 14:46 67 16 178/77 98 07/09/20 14:30 68 16 160/72 98 07/09/20 14:20 97.6 F 71 14 188/80 97 07/09/20 11:47 98.6 F 51 L 16 198/86 99 Intake and Output 07/09/20 07/10/20 07/10/20 22:59 06:59 14:59 Intake Total 200 296 Balance 200 296 Intake: IV 200 Oral 296 Other: Voiding Method Toilet Toilet # Voids 1 1 Weight 65.5 kg Physical Examination Gen: This is a 75-year-old female. Patient is resting in recliner appears to be comfortable and in no acute distress. HEENT: Head is atraumatic, normocephalic. Pupils equal, round. Sclerae is anicteric. NECK: Supple. No JVD. No lymphadenopathy. No thyromegaly. LUNGS: Clear to auscultation. No wheezes or rhonchi. No intercostal retractions. HEART: Regular rate and rhythm. No murmur. ABDOMEN: Soft. Bowel sounds are present. No masses. No tenderness. EXTREMITIES: No pedal edema. No calf tenderness. Small dressing in place to the left knee. Dorsalis pedis palpable bilaterally. NEUROLOGICAL: Patient is awake, alert and oriented x3. Cranial nerves 2 through 12 are grossly intact. Assessment and Plan Plan: 1. Osteoarthritis status post left total knee arthroplasty. Patient is postop day #1. Plan is for discharge home today. Aspirin for DVT prophylaxis. 2. Hypertension. Continue hydrochlorothiazide 25 mg daily, Norvasc 5 mg daily, Lopressor 50 mg twice daily, losartan 100 mg daily. 3. Hyperlipidemia. Continue Crestor 10 mg daily. 4. Gastroesophageal reflux disease. Continue omeprazole 40 mg daily. 5. Overactive bladder. Continue mirabegron 25 mg daily. 6. Chronic low back pain with peripheral neuropathy with previous epidural injections, stable. Continue gabapentin. 7. Generalized anxiety disorder. Continue Xanax as needed. 8. Recurrent depression. Continue Zoloft 50 mg daily. Discharge plan: Home with homecare Impression and plan of care have been directed as dictated by the signing physic ian. Jeanette Steen nurse practitioner acting as scribe for signing physician.
[2020-07-10 10:27] LABS: Basophils # (A) 0.02 X 10*3/uL (0.00-0.10); Basophils % (A) 0.2 %; Eosinophils # (A) 0.01 X 10*3/uL (0.04-0.35); Eosinophils % (A) 0.1 %; HGB 12.2 g/dL (12.0-15.0); Lymphocytes # (A) 2.01 X 10*3/uL (0.90-5.00); Lymphocytes % (A) 18.7 %; MCH 30.7 pg (27.0-32.0); MCHC 31.3 g/dL (32.0-37.0); MCV 98.2 fL (80.0-97.0); Mean Platelet Volume 9.8 fL (9.5-12.2); Monocytes # (A) 0.82 X 10*3/uL (0.20-1.00); Monocytes % (A) 7.6 %; Neutrophils # (A) 7.87 X 10*3/uL (1.80-7.70); Platelet Count 300 X 10*3/uL (140-440); RBC 3.97 X 10*6/uL (4.10-5.20); RDW 13.4 % (11.5-14.5); WBC 10.77 X 10*3/uL (4.50-10.00)
--- NOTE | 2020-07-10 10:32 | P.DS ---
Providers Expected date of discharge: 07/10/20 Attending physician: uLis Watson Consults: 07/09/20 18:15 Consult Physician Routine Consulting Provider: Luciano Morrow Consult Reason/Comments: medical management Do you want consulting provider notified?: Yes Primary care physician: Luciano Morrow - Discharge Diagnosis(es) (1) Osteoarthritis of left knee Current Visit: Yes Status: Acute (2) Status post total left knee replacement Current Visit: Yes Status: Acute Hospital Course: This is a 75-year-old female with known history of degenerative arthritis of the left knee. The patient presented for evaluation as an outpatient. After discussion and consideration patient elects to proceed with total knee arthroplasty. The patient is seen preoperatively by Dr. Watson and medically cleared for surgery by their primary care physician. Patient is admitted to [facility] on 07/09/2020 for total knee arthroplasty. The procedure is performed without complication or sequelae. The patient is doing well postoperatively. Labs and vital signs are stable on day of discharge. On day of discharge patient's knee incision is healing well. There is minimal erythema. There is no drainage noted at this time. There is minimal soft tissue swelling to left lower extremity. Patient has full foot and ankle motion without difficulty or pain. Calf is soft and nontender to palpation. Neurovascular status to the left lower extremity is intact. Patient is discharged home in good condition. Opioid start talking form is reviewed and signed at bedside. Please see med rec for accurate list of home medications. Plan - Discharge Summary Discharge Rx Participant: No New Discharge Prescriptions: New Aspirin 325 mg PO BID #60 tab Celecoxib [CeleBREX] 200 mg PO DAILY 5 Days #5 capsule Gabapentin 300 mg PO BID 5 Days #10 cap HYDROcodone/APAP 7.5-325MG [[place] 7.5-325] 1 - 2 tab PO Q6H PRN #32 tab PRN Reason: Pain Sennosides [Senokot] 2 tab PO DAILY PRN #60 tablet PRN Reason: Constipation Ondansetron [Zofran ODT] 4 mg PO Q8HR PRN #10 tab PRN Reason: Nausea And Vomiting Sennosides-Docusate Sodium [Senokot-S] 2 each PO HS tab Continue Vitamin E Acetate [Vitamin E] 180 unit PO DAILY Rosuvastatin [Crestor] 10 mg PO DAILY Mirabegron [Myrbetriq] 25 mg PO DAILY hydroCHLOROthiazide 25 mg PO DAILY Losartan Potassium [Cozaar] 100 mg PO DAILY Metoprolol Tartrate [Lopressor] 50 mg PO BID Acetaminophen Tab [Tylenol] 500 mg PO DAILY PRN PRN Reason: Pain Magnesium Chloride [Slow-Mag] 64 mg PO DAILY Loratadine [Claritin] 10 mg PO DAILY Cannabidiol (Cbd) [Epidiolex] 1 dose PO DAILY PRN PRN Reason: Pain No Action Cholecalciferol [Vitamin D3 (25 Mcg = 1000 Iu)] 1,000 unit PO DAILY ALPRAZolam [Xanax] 0.25 mg PO DAILY PRN PRN Reason: Anxiety amLODIPine [Norvasc] 5 mg PO DAILY Sertraline HCl [Zoloft] 50 mg PO DAILY Omeprazole 40 mg PO DAILY L.acidoph,Paracasei, B.lactis [Probiotic] 1 cap PO DAILY Gabapentin [Neurontin] 100 mg PO DAILY Biotin 5 mg PO DAILY HYDROcodone/APAP 5-325MG [[place] 5-325] 1 each PO Q4HR PRN tab PRN Reason: Pain Discharge Medication List ALPRAZolam [Xanax] 0.25 mg PO DAILY PRN 03/17/17 [History] Biotin 5 mg PO DAILY 03/17/17 [History] Cholecalciferol [Vitamin D3 (25 Mcg = 1000 Iu)] 1,000 unit PO DAILY 03/17/17 [History] Gabapentin [Neurontin] 100 mg PO DAILY 03/17/17 [History] L.acidoph,Paracasei, B.lactis [Probiotic] 1 cap PO DAILY 03/17/17 [History] Omeprazole 40 mg PO DAILY 03/17/17 [History] Sertraline HCl [Zoloft] 50 mg PO DAILY 03/17/17 [History] amLODIPine [Norvasc] 5 mg PO DAILY 03/17/17 [History] HYDROcodone/APAP 5-325MG [[place] 5-325] 1 each PO Q4HR PRN tab 07/31/17 [Rx] Acetaminophen Tab [Tylenol] 500 mg PO DAILY PRN 07/03/20 [History] Cannabidiol (Cbd) [Epidiolex] 1 dose PO DAILY PRN 07/03/20 [History] Loratadine [Claritin] 10 mg PO DAILY 07/03/20 [History] Losartan Potassium [Cozaar] 100 mg PO DAILY 07/03/20 [History] Magnesium Chloride [Slow-Mag] 64 mg PO DAILY 07/03/20 [History] Metoprolol Tartrate [Lopressor] 50 mg PO BID 07/03/20 [History] Mirabegron [Myrbetriq] 25 mg PO DAILY 07/03/20 [History] Rosuvastatin [Crestor] 10 mg PO DAILY 07/03/20 [History] Vitamin E Acetate [Vitamin E] 180 unit PO DAILY 07/03/20 [History] hydroCHLOROthiazide 25 mg PO DAILY 07/03/20 [History] Aspirin 325 mg PO BID #60 tab 07/09/20 [Rx] Celecoxib [CeleBREX] 200 mg PO DAILY 5 Days #5 capsule 07/09/20 [Rx] Gabapentin 300 mg PO BID 5 Days #10 cap 07/09/20 [Rx] HYDROcodone/APAP 7.5-325MG [[place] 7.5-325] 1 - 2 tab PO Q6H PRN #32 tab 07/09/20 [Rx] Ondansetron [Zofran ODT] 4 mg PO Q8HR PRN #10 tab 07/09/20 [Rx] Sennosides [Senokot] 2 tab PO DAILY PRN #60 tablet 07/09/20 [Rx] Sennosides-Docusate Sodium [Senokot-S] 2 each PO HS tab 07/10/20 [Rx] Follow up Appointment(s)/Referral(s): [facility], [NON-STAFF] - ([facility] will call to set up your first visit. Your first visit should be on 07/10/20.) Luis Watson DO [Doctor of Osteopathic Medicine] - 2 Weeks Activity/Diet/Wound Care/Special Instructions: Weightbearing as tolerated with walker. Please leave dressing in place for 10 days. May shower with dressing intact. Please take medications as prescribed. Please wear compression stockings daily until follow up to help prevent blood clots. May remove at night when sleeping. Please take aspirin 325mg twice daily for 30 days to help prevent blood clots. Please follow up with [facility] and call with any questions or concerns, . Discharge Disposition: HOME WITH HOME HEALTH SERVICES
== END 2020-07-10 11:13 | disposition home health service (06) ==
LOC: OR 10:55 → 4SSUR 16:24 → OR 07-10 11:13
PROVIDERS: ATTEND Orthopaedic Surgery
DX: M17.12 Unilateral primary osteoarthritis, left knee (principal); M21.062 Valgus deformity, not elsewhere classified, left knee; K21.00 Gastro-esophageal reflux disease with esophagitis, without bleeding; I10 Essential (primary) hypertension; H91.90 Unspecified hearing loss, unspecified ear; E78.2 Mixed hyperlipidemia; N36.44 Muscular disorders of urethra; F41.9 Anxiety disorder, unspecified; E55.9 Vitamin D deficiency, unspecified; Z97.3 Presence of spectacles and contact lenses; Z88.1 Allergy status to other antibiotic agents; Z88.2 Allergy status to sulfonamides; Z90.49 Acquired absence of other specified parts of digestive tract; Z90.710 Acquired absence of both cervix and uterus; Z79.899 Other long term (current) drug therapy; Z98.890 Other specified postprocedural states; Z80.1 Family history of malignant neoplasm of trachea, bronchus and lung; Z80.3 Family history of malignant neoplasm of breast; Z80.0 Family history of malignant neoplasm of digestive organs; Z82.49 Family history of ischemic heart disease and other diseases of the circulatory system; K58.9 Irritable bowel syndrome, unspecified; Z98.41 Cataract extraction status, right eye; Z98.42 Cataract extraction status, left eye
CPT/HCPCS: 97116; 97161; 64448; 76942; 85025; 88300; 73560; 27447; C1713; C1776; J2250; J0360; J1100; J0690 ×2; J2405; J2001; J3010; J0330; J2704; J1170; J2795

== ENCOUNTER → 2020-11-28 | Outpatient (CLI) | payer MEDICARE, BC ==
--- NOTE | 2020-11-30 11:48 | MM ---
Reason for exam: screening (asymptomatic). Last mammogram was performed 1 year and 6 months ago. History: Patient is postmenopausal. Family history of premenopausal breast cancer in mother. 2 excisional biopsies of the left breast. Excisional biopsy of the right breast. Took estrogen for 18 years. Physical Findings: A clinical breast exam by your physician is recommended on an annual basis and results should be correlated with mammographic findings. MG 3D Screening Mammo W/Cad Bilateral CC and MLO view(s) were taken. Prior study comparison: June 07, 2019, bilateral MG 3d screening mammo w/cad. May 07, 2018, bilateral MG 3d screening mammo w/cad. There are scattered fibroglandular densities. No significant changes when compared with prior studies. ASSESSMENT: Negative, BI-RAD 1 RECOMMENDATION: Routine screening mammogram of both breasts in 1 year.
== END | disposition home or self-care (01) ==
LOC: RADMAMWWP 11:44
PROVIDERS: ATTEND Internal Medicine
DX: Z12.31 Encounter for screening mammogram for malignant neoplasm of breast (principal); Z78.0 Asymptomatic menopausal state; Z80.3 Family history of malignant neoplasm of breast
CPT/HCPCS: 77063; 77067

== ENCOUNTER → 2022-04-04 | Outpatient (CLI) | payer MEDICARE, BC ==
--- NOTE | 2022-04-04 12:16 | BD ---
EXAMINATION TYPE: Axial Bone Density DATE OF EXAM: 04/04/2022 COMPARISON: NONE CLINICAL HISTORY: 77 years year old Female. ICD-10 CODE: [id number] OSTEOPENIA OF RIGHT HIP Height: 57.5 Weight: 151.5 FRAX RISK QUESTIONS: Alcohol (3 or more units per day): NO Family History (Parent hip fracture): NO Glucocorticoids (More than 3mos): NO History of Fracture in Adulthood: FOOT Secondary Osteoporosis: 1. Type 1 Diabetes: NO 2. Hyperthyroidism: NO 3. Menopause before 45: NO 4. Malnutrition: NO 5. Chronic liver disease: NO Rheumatoid Arthritis: NO Current Tobacco Use: NO RISK FACTORS HISTORY OF: Hip Fracture (Right/Left): NO Spine Fracture: NO History of Wrist Fracture: NO Surgery to Spine/Hip(right/left)/Wrist (right/left): NO Family History of Osteoporosis: MO Active: NO Diet low in dairy products/other sources of calcium: YES Postmenopausal woman: YES Take estrogen and/or progesterone medications: NO Lost more than 2 inches in height since high school: YES Frequent falls: NO Poor Health: NO Hyperparathyroidism: NO Adrenal Insufficiency: NO MEDICATIONS: Prednisone or other steroids: NO Thyroid Medications: NO Osteoporosis Medications: NO Additional Medications: BP MEDS, OMEPRAZOLE, MAGNESIUM, VIT D EXAM MEASUREMENTS: Bone mineral densitometry was performed using the [email or web address] System Bone mineral density as measured about the Lumbar spine is: ----- L1-L4(G/cm2): 1.082 T Score Values are as follows: ----- L1: -0.8 ----- L2: -1.8 ----- L3: -0.9 ----- L4: 0.3 ----- L1-L4: -0.8 Bone mineral density has: DECREASED -16.7 % since study of: 06/07/2019 Bone mineral density about the R hip (g/cm2): 0.772 Bone mineral density about the L hip (g/cm2): 0.775 T Score values are as follows: -----R Neck: -1.9 -----L Neck: -2.0 -----R Total: -1.4 -----L Total: -1.9 Bone mineral density has: DECREASED -5.2 % since study of: 06/07/2019 FRAX%s: The graph provided illustrates a 21.4% chance for a major osteoporotic fx and a 5.6% chance f or the hips probability for fx in 10 years time. IMPRESSION: Osteopenia (T Score between -2.5 and -1). There is slightly increased risk of fracture and the patient may be considered for treatment. Re-Screen 2-5 years. NOTE: T-SCORE=SD OF THE YOUNG ADULT MEAN.
--- NOTE | 2022-04-07 08:35 | MM ---
Reason for Exam: Screening (asymptomatic). Last mammogram was performed 1 year(s) and 4 month(s) ago. Patient History: Menarche at age 10. First Full-Term at age 15. Left ovary removed at age 38. Right ovary removed at age 38. Hysterectomy at age 38. Postmenopausal. Patient used Estrogen for 18 years. Excisional Biopsy on the Right side. Excisional Biopsy on the Left side. Excisional Biopsy on the Left side. Mother had breast cancer, age 45. Risk Values: Cathy 5 year model risk: 4.7%. NCI Lifetime model risk: 7.7%. Prior Study Comparison: 05/07/2018 Bilateral Screening Mammogram, [facility]. 06/07/2019 Bilateral Screening Mammogram, [facility]. 11/28/2020 Bilateral Screening Mammogram, [facility]. Tissue Density: There are scattered fibroglandular densities. Findings: Analyzed By CAD. Benign calcifications are within the bilateral breasts. No suspicious groups of microcalcifications, spiculated or lobular masses, architectural distortion or other secondary signs of malignancy are mammographically apparent. Overall Assessment: Benign, BI-RAD 2 Management: Screening Mammogram of both breasts in 1 year. A negative mammogram report should not preclude additional follow up of suspicious palpable abnormalities. Patient should continue monthly self breast exam. A clinical breast exam by your physician is recommended on an annual basis and results should be correlated with mammographic findings. Electronically signed and approved by: Hu Carter D.O. Radiologis
== END | disposition home or self-care (01) ==
LOC: RADMAMWWP 09:08
PROVIDERS: ATTEND Internal Medicine
DX: Z12.31 Encounter for screening mammogram for malignant neoplasm of breast (principal); M85.89 Other specified disorders of bone density and structure, multiple sites; Z78.0 Asymptomatic menopausal state; Z80.3 Family history of malignant neoplasm of breast
CPT/HCPCS: 77063; 77067; 77080

== ENCOUNTER → 2023-01-20 | Outpatient (CLI) | payer MEDICARE, BC ==
--- NOTE | 2023-01-20 19:25 | MR ---
EXAMINATION TYPE: MR lumbar spine wo con DATE OF EXAM: 01/20/2023 3:32 PM COMPARISON: 07/24/2018. 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 TECHNIQUE: Multi planar, multi sequence imaging was performed utilizing: T1-weighted, T2-weighted, a nd turbo inversion recovery imaging of the lumbar spine. IV Contrast: cc . None. FINDINGS: Alignment: The lumbar vertebral bodies have preserved heights. There is scoliosis alignment. Grade 1 anterolisthesis of L4 on L5 and L3 on L4 suggested. Cord: The conus medullaris and the distal spinal cord appear unremarkable with regards to their signa l intensity and morphology. Bones/Discs: Severe degeneration changes with disc space narrowing, osteophyte formation and Schmorl' s nodes.. Scoliosis changes result in severe degeneration with facet joint arthropathy. Reactive bony edema involving the adjoining endplates of L1 and L2. T11-T12: mild spinal canal stenosis and moderate to severe left and moderate right neural foraminal s tenosis. T12-L1: Disc bulge with mild spinal canal stenosis and moderate to severe right and moderate left pricila ral foraminal stenosis. L1-L2: Large facet joint on the right displaces the cauda equina there is mild spinal canal narrowing and severe right and moderate severe left neural foraminal stenosis. L2-L3: Disc bulge and facet joint arthropathy result in mild spinal canal and moderate to severe bila teral neural foraminal stenosis. L3-L4: Disc bulge and facet joint arthropathy with large facet joint on the left displacing the cauda equina medially there is at least severe bilateral neural foraminal stenosis. Spinal canal is modera te to severely narrowed L4-L5: Disc bulge and facet joint arthropathy with large facet joint on the left displacing the cauda equina medially there is at least moderate to severe left and mild to moderate right neural foramina l stenosis. Spinal canal is mildly narrowed. L5-S1: The disc is rounded posterior morphology without significant spinal canal stenosis. Facet join t arthropathy with mild right and moderate to severe left neural foraminal stenosis. Other findings: None. IMPRESSION: Extensive degeneration changes with multiple levels with at least moderate to severe and severe neura l foraminal stenosis as described above.
== END | disposition home or self-care (01) ==
LOC: RADMRIMAIN 14:38
PROVIDERS: ATTEND Internal Medicine
DX: M51.35 Other intervertebral disc degeneration, thoracolumbar region (principal); M99.72 Connective tissue and disc stenosis of intervertebral foramina of thoracic region; M48.04 Spinal stenosis, thoracic region; M47.816 Spondylosis without myelopathy or radiculopathy, lumbar region; M51.46 Schmorl's nodes, lumbar region
CPT/HCPCS: 72148

== ENCOUNTER → 2023-02-23 | Outpatient (CLI) | payer MEDICARE, BC ==
[2023-02-23 09:57] VITALS: BP 129/84; PULSE 88; RESP 15; TEMP 98.2
--- NOTE | 2023-02-23 14:48 | P.PAINPG ---
PQRS Measure Charge Sheet Comment: HISTORY OF PRESENT ILLNESS: 78 yr old female w at side as a referral from Dr Morrow presents today w severe and chronic LBP secondary to for evaluation. Pt states pain level is provoked at 10/10 in intensity, constant, localized in the lower lumbar spine, crunching in character w shooting pain towards the BL groin. Pain is provoked by bending. Pain is alleviated by ESIs, PT x 4 wks in Fall 2021 for her LEs which provoked her back pain and PT was discontinued, physician guided home stretches for her lumbar spine 5 times weekly since 2021, use of a cane for ambulatory assistance, medications (Pelzer 7.5/325mg), topical, repositioning and rest. Oswestry axial pain score at 22. PMH: OA, GERD, Hyperlipidemia, HTN, IBS, Anxiety PSH: Bowel Resection, Breast Cystectomy Surgery, Cholecystectomy, Hysterectomy, BL Cataract Surgery, Colonoscopy SH: Lifelong tobacco user, No ETOH use, No illicit drug use. and lives w spouse. Has 3 children. FH: Mo- Breast/ Bowel CA/ at 47. Fa- Lung CA/ at 62. Bro- from [place]/ COPD. Son- [place] at age 58. All: See list Meds: See list REVIEW OF ORGAN SYSTEMS: CONSTITUTIONAL: No fevers or chills. No recent weight loss. NEUROLOGICAL: + numbness and tingling along the distal extremities. No seizure disorders or headaches. MUSCULOSKELETAL: + pain PSYCHIATRIC: Denies current depression or suicidal thoughts. Physical Examinations : Constitutional : Cooperative , not in acute distress . Neurologic : Cranial nerve II to XII intact. No focal neurological deficits. Psychiatric : alert & oriented x 3. Matching mood & appropriate affect. Judgment & insight intact. Musculoskeletal : Cervical Spine Motor strength in the deltoid and biceps: Normal right side. Normal Left side Motor strength biceps and the wrist extensors: Normal right side . Normal left side Motor strength in the triceps muscle: Normal right side. Normal left side Deep tendon reflexes: Normal at the biceps. Normal at Brachioradialis. Normal at triceps Vertebral body tenderness to deep palpation over Cervical facet loading test: positive bilaterally Spurling test: positive bilaterally Neck distraction test: positive bilaterally Patricia sign: positive bilaterally Lumbar spine Motor strength lower extremities ,thigh and legs 5/5 Right side , 5/5 Left side Deep tendon reflexes : Normal Knee Jerk. Normal Ankle Jerk Vertebral body tenderness over L4 Grijalva Test positive Lumbar facet Loading Test: positive Right / positive Left Range of motion of the lumbar spine Flexion 30 degrees, extension 10 degrees Straight Leg Raise test: Left/ Right positive at 35 degrees Luis test: positive right / positive left. Severe tenderness over the Sacroiliac joint on the Right / Left sides Gaenslen test: positive bilaterally Seated flexion test: positive bilaterally. Sacral spine : Severe tenderness over the Sacroiliac joint: right side / left side Range of motion: Flexion of the lumbar spine <60 degrees Range of motion: Extension of the lumbar spine <20 degrees Gaenslen's Test positive Davide's Test positive Luis test: positive right side / left side Thigh Thrust Test Sacral Thrust Test Imaging: MRI noncontrast of the lumbar spine from 01/20/23 reviewed Assessment/ Plan : Lumbar DDD Recommendation of GEO L4-L5 #1. May need a series of injections for optimal pain relief. Risks, benefits discussed and patient verbalized understanding. Admits to anti- coagulant use or medical history of diabetes. Protocol for discontinuation/ continuation of medications lisa procedure discussed. Minimal anesthesia provided, if clinically indicated, consisting of Versed and Fentanyl. All questions answered. I have spent greater than 30 minutes on patient care today. Dr May was available by phone for the evaluation of this patient. The time was used to rev iew the medical records including relevant urine studies and Prescription history (MAPs), review of the available imaging, evaluation and examination of the patient, coordination of care with the medical staff and if applicable referring physicians, as well as creation of the medical record PQRS Narrative: Smoking Status Never smoker Home Medications: Ambulatory Orders ALPRAZolam [Xanax] 0.25 mg PO DAILY PRN 03/17/17 Biotin 5 mg PO DAILY 03/17/17 Cholecalciferol [Vitamin D3 (25 Mcg = 1000 Iu)] 1,000 unit PO DAILY 03/17/17 Gabapentin [Neurontin] 100 mg PO DAILY 03/17/17 L.acidoph,Paracasei, B.lactis [Probiotic] 1 cap PO DAILY 03/17/17 Omeprazole 40 mg PO DAILY 03/17/17 Sertraline HCl [Zoloft] 50 mg PO DAILY 03/17/17 amLODIPine [Norvasc] 5 mg PO DAILY 03/17/17 HYDROcodone/APAP 5-325MG [[place] 5-325] 1 each PO Q4HR PRN tab 07/31/17 Acetaminophen Tab [Tylenol] 500 mg PO DAILY PRN 07/03/20 Cannabidiol (Cbd) [Epidiolex] 1 dose PO DAILY PRN 07/03/20 Loratadine [Claritin] 10 mg PO DAILY 07/03/20 Losartan Potassium [Cozaar] 100 mg PO DAILY 07/03/20 Magnesium Chloride [Slow-Mag] 64 mg PO DAILY 07/03/20 Metoprolol Tartrate [Lopressor] 50 mg PO BID 07/03/20 Mirabegron [Myrbetriq] 25 mg PO DAILY 07/03/20 Rosuvastatin [Crestor] 10 mg PO DAILY 07/03/20 Vitamin E (Dl,Tocopheryl Acet) [Vitamin E] 180 unit PO DAILY 07/03/20 hydroCHLOROthiazide 25 mg PO DAILY 07/03/20 Aspirin 325 mg PO BID #60 tab 07/09/20 Celecoxib [CeleBREX] 200 mg PO DAILY 5 Days #5 capsule 07/09/20 Gabapentin 300 mg PO BID 5 Days #10 cap 07/09/20 HYDROcodone/APAP 7.5-325MG [[place] 7.5-325] 1 - 2 tab PO Q6H PRN #32 tab 07/09/20 Ondansetron [Zofran ODT] 4 mg PO Q8HR PRN #10 tab 07/09/20 Sennosides [Senokot] 2 tab PO DAILY PRN #60 tablet 07/09/20 Sennosides-Docusate Sodium [Senokot-S] 2 each PO HS tab 07/10/20 Controlled Substance Measures - Controlled Substance Measures Is patient prescribed a controlled substance at discharge?: No
== END ==
LOC: PNWHC3 09:20
PROVIDERS: ATTEND Specialist
DX: M51.36 Other intervertebral disc degeneration, lumbar region (principal); M47.816 Spondylosis without myelopathy or radiculopathy, lumbar region; M19.90 Unspecified osteoarthritis, unspecified site; K21.9 Gastro-esophageal reflux disease without esophagitis; E78.5 Hyperlipidemia, unspecified; F17.200 Nicotine dependence, unspecified, uncomplicated; I10 Essential (primary) hypertension; F41.9 Anxiety disorder, unspecified; K58.9 Irritable bowel syndrome, unspecified; Z88.1 Allergy status to other antibiotic agents; Z88.2 Allergy status to sulfonamides; Z79.899 Other long term (current) drug therapy; Z79.82 Long term (current) use of aspirin
CPT/HCPCS: 99211

== ENCOUNTER 2023-03-10 09:34 | Day surgery (SDC) | payer MEDICARE, BC ==
[~2023-03-10 09:34] MED LIST changes: -ACETAMINOPHEN TAB 500 MG TAB PO PRN; -GABAPENTIN 300 MG CAP PO PRN; +LACTATED RINGERS 1,000 ML IV SCH; -MELOXICAM 7.5 MG TAB PO PRN; -TRANEXAMIC ACID 1,000 MG in SODIUM CHLORIDE 0.9% 100 ML IVPB PRN
[2023-03-10 10:03] VITALS: RESP 16; TEMP 98
[2023-03-10] MEDS ORDERED: methylPREDNISolone ACETATE 80 MG/ML 1 ML VIAL ONE (10:21)
[2023-03-10] MEDS ORDERED: IOPAMIDOL M200 10 ML VIAL ONE (10:21)
--- NOTE | 2023-03-10 10:40 | P.PCN ---
Date of Procedure: 03/10/23 Description of Procedure: Procedure: 1. L5-S1 Epidural steroid injection under fluoroscopic guidance , Attempted L4-L5 epidural level 2. Lumbar epidurogram PREOPERATIVE DIAGNOSIS: Lumbar degenerative disc disease, and Lumbar radiculopathy. POSTOPERATIVE DIAGNOSIS: Lumbar degenerative disc disease, and Lumbar radiculopathy. SURGEON: Dylan Mckay ANESTHESIA: Local with 1% lidocaine, and IV sedation: none EBL: None. Specimen removed: None Fluoroscopic image: saved to electronic medical records PROCEDURE INDICATION: The patient had history of Lumbar degenerative disc disease and Lumbar radiculopathy. Failed to conservative therapy. Presented for epidural steroid injection. PROCEDURE DESCRIPTION: The patient was seen and identified in the preoperative area. Risks, benefits, complications, and alternatives were discussed with the patient. The patient agreed to proceed with the procedure and signed the consent. vital signs were stable. Patient was taken to the procedure area, and time out was completed. The patient was placed in the prone position on procedure table and a pillow was placed under the abdomen to reduce lumbar lordosis. The lumbosacral area was prepped and draped in the usual sterile fashion. Critical pause was taken. Vital signs were closely monitored during the procedure. Using anterior-posterior fluoroscopy, the L4-L5 interlaminar space was identified with difficulty, but unable to get loss of resistance. Using anteroposterior fluoroscopy L5-S1 epidural space identified. After discussed with the patient regarding entering at L5-S1 epidural space , and skin and deeper tissues were localized with 1% lidocaine. Using anterior-posterior fluoroscopy, lateral fluoroscopy, and dsli-jh-yqprqjsiuq technique, a 20 gauge 3.5 Tuohy epidural needle entered the epidural space. After negative aspiration of CSF and blood with no paresthesias, 2 ml of [id number] contrast dye was injected and an excellent epidurogram was seen. Again after negative aspiration of CSF and blood with no paresthesias, 6 mL of block solution was injected into the epidural space. Block solution contained 80 mg of Depo-Medrol, and 4 mL of preservative-free normal saline. Needle was withdrawn intact, skin was cleansed, and bandages were applied. COMPLICATIONS: None. DISPOSITION / PLANS: The patient was placed in a supine position and transferred to the recovery area in a stable condition for observation. Patient was discharged from the recovery room after meeting discharge criteria. Home discharge instructions given to the patient by the staff. The patient was reexamined prior to discharge. The patient will schedule a follow up in the [facility] in 4 weeks.
[2023-03-10 10:54] VITALS: BP 160/75; PULSE 60
--- NOTE | 2023-03-10 12:00 | FL ---
EXAMINATION TYPE: FL guided pain mgmt statistic DATE OF EXAM: 03/10/2023 HISTORY: Fluoroscopy time Total dose area product (DAP) in uGy*m?, mGy*cm? (or similar): 0.34318 IMPRESSION: 1. Fluoroscopy time.
== END 2023-03-10 11:06 ==
LOC: ORPAIN 09:34
DX: M51.16 Intervertebral disc disorders with radiculopathy, lumbar region (principal); I10 Essential (primary) hypertension; M19.90 Unspecified osteoarthritis, unspecified site; E78.5 Hyperlipidemia, unspecified; Z79.899 Other long term (current) drug therapy; Z88.2 Allergy status to sulfonamides; Z88.1 Allergy status to other antibiotic agents
CPT/HCPCS: 62323; J1040; Q9966

== ENCOUNTER → 2023-04-01 | Outpatient (CLI) | payer MEDICARE, BC ==
[2023-04-01 14:11] VITALS: BP 167/78; PULSE 60; RESP 16; TEMP 97.8
--- NOTE | 2023-04-01 16:08 | P.PAINPG ---
Objective - Vital Signs Vital signs: Intake & Output 03/31/23 04/01/23 04/01/23 18:59 06:59 18:59 Weight 65.317 kg PQRS Measure Charge Sheet Comment: HISTORY OF PRESENT ILLNESS: 78 yr old female w at side presents today w severe and chronic LBP secondary to severe spinal stenosis, DDD, spondylosis and facet arthropathy without myelopathy for evaluation. Pt states pain level is provoked at 10/10 in intensity, constant, localized in the mid to lower lumbar spine, stabbing in character w shooting pain towards the R groin. Pain is provoked by standing/ walking or bending. Pain is alleviated by ESIs, PT x 4 wks in Fall 2021 for her LEs which provoked her back pain and PT was discontinued, physician guided home stretches for her lumbar spine 5 times weekly since 2021, use of a cane for ambulatory assistance, medications, topical, repositioning and rest. Oswestry axial pain score at 34. Interventional procedures include GEO L4-L5 x1 Medications include [place] 7.5/325mg REVIEW OF ORGAN SYSTEMS: CONSTITUTIONAL: No fevers or chills. No recent weight loss. NEUROLOGICAL: + numbness and tingling along the distal extremities. No seizure disorders or headaches. MUSCULOSKELETAL: + pain PSYCHIATRIC: Denies current depression or suicidal thoughts. Physical Examinations : Constitutional : Cooperative , not in acute distress . Neurologic : Cranial nerve II to XII intact. No focal neurological deficits. Psychiatric : alert & oriented x 3. Matching mood & appropriate affect. Judgment & insight intact. Musculoskeletal : Cervical Spine Motor strength in the deltoid and biceps: Normal right side. Normal Left side Motor strength biceps and the wrist extensors: Normal right side . Normal left side Motor strength in the triceps muscle: Normal right side. Normal left side Deep tendon reflexes: Normal at the biceps. Normal at Brachioradialis. Normal at triceps Vertebral body tenderness to deep palpation over Cervical facet loading test: positive bilaterally Spurling test: positive bilaterally Neck distraction test: positive bilaterally Patricia sign: positive bilaterally Lumbar spine Motor strength lower extremities ,thigh and legs 5/5 Right side , 5/5 Left side Deep tendon reflexes : Normal Knee Jerk. Normal Ankle Jerk Vertebral body tenderness over L4 Grijalva Test positive Lumbar facet Loading Test: positive Right L4-L5, L5-S1 / positive Left Range of motion of the lumbar spine Flexion 30 degrees, extension 10 degrees Straight Leg Raise test: Left/ Right positive at 35 degrees Luis test: positive right / positive left. Severe tenderness over the Sacroiliac joint on the Right / Left sides Gaenslen test: positive bilaterally Seated flexion test: positive bilaterally. Sacral spine : Severe tenderness over the Sacroiliac joint: right side / left side Range of motion: Flexion of the lumbar spine <60 degrees Range of motion: Extension of the lumbar spine <20 degrees Gaenslen's Test positive Davide's Test positive Luis test: positive right side / left side Thigh Thrust Test Sacral Thrust Test Imaging: MRI noncontrast of the lumbar spine from 01/20/23 reviewed Assessment/ Plan : Lumbar DDD Request for medical records for R RFA L3-L5 done at , [facility] form completed. All questions answered. I have spent greater than 30 minutes on patient care today. Dr May was available by phone for the evaluation of this patient. The time was used to review the medical records including relevant urine studies and Prescription history (MAPs), review of the available imaging, evaluation and examination of the patient, coordination of care with the medical staff and if applicable referring physicians, as well as creation of the medical record PQRS Narrative: Smoking Status Never smoker Hx Alcohol Use (MH) No Home Medications: Ambulatory Orders ALPRAZolam [Xanax] 0.25 mg PO DAILY PRN 03/17/17 Biotin 5 mg PO DAILY 03/17/17 Omeprazole 40 mg PO DAILY 03/17/17 Sertraline HCl [Zoloft] 50 mg PO DAILY 03/17/17 amLODIPine [Norvasc] 5 mg PO DAILY 03/17/17 Losartan Potassium [Cozaar] 100 mg PO DAILY 07/03/20 Magnesium Chloride [Slow-Mag] 64 mg PO DAILY 07/03/20 Metoprolol Tartrate [Lopressor] 50 mg PO DAILY 07/03/20 Mirabegron [Myrbetriq] 50 mg PO DAILY 07/03/20 Rosuvastatin [Crestor] 10 mg PO DAILY 07/03/20 hydroCHLOROthiazide 25 mg PO DAILY 07/03/20 Loperamide [Imodium] mg PO PRN 03/10/23 HYDROcodone/APAP 7.5-325MG [[place] 7.5-325] 7.5 tab PO Q4H PRN 3 Days #15 tab 03/30/23 Controlled Substance Measures - Controlled Substance Measures Is patient prescribed a controlled substance at discharge?: No
== END ==
LOC: PNWHC3 12:42
PROVIDERS: ATTEND Specialist
DX: M51.37 Other intervertebral disc degeneration, lumbosacral region (principal); Z88.1 Allergy status to other antibiotic agents; Z88.2 Allergy status to sulfonamides
CPT/HCPCS: 99211

== ENCOUNTER 2023-04-24 08:09 | Day surgery (SDC) | payer MEDICARE, BC ==
[2023-04-24] MEDS ORDERED: LACTATED RINGERS 1,000 ML IV SCH (08:33)
[2023-04-24 08:44] VITALS: RESP 16; TEMP 98
[2023-04-24] MEDS ORDERED: LIDOCAINE 1% (10MG/ML) FOR IV START INTRADERMA ONE (08:47)
[2023-04-24] MEDS ORDERED: MIDAZOLAM 2 MG/2 ML VIAL ONE (08:59)
[2023-04-24] MEDS ORDERED: methylPREDNISolone ACETATE 40 MG/ML 1 ML VIAL ONE (08:59)
[2023-04-24] MEDS ORDERED: ROPIVACAINE 5MG/ML 20ML VIAL ONE (08:59)
[2023-04-24] MEDS ORDERED: fentaNYL (PF) 50 MCG/ML 2 ML AMP ONE (08:59)
--- NOTE | 2023-04-24 09:14 | P.PCN ---
Date of Procedure: 04/24/23 Procedure(s) Performed: PREOPERATIVE DIAGNOSIS : 1- Lumbar spondylosis with Facet Arthropathy without myelopathy . 2- Lumber degenerative disc disease POSTOPERATIVE DIAGNOSIS: 1- Lumbar spondylosis with Facet Arthropathy without myelopathy . 2- Lumber degenerative disc disease PROCEDURE: Diagnostic Right L3 , L4 , and L5 medial branch block under fluoroscopy guidance(fluoroscopy images available in the radiology Department ) ( To target the facet joint between Right L4-5 , and L5-S1 )# 1ST ANESTHESIA:, Monitored anesthesia care as per anesthesia department. EBL: Minimal COMPLICATION: None PROCEDURE INDICATION: Chronic low back pain secondary to Facet arthropathy unresponsive to conservative treatment. PROCEDURE DESCRIPTION: the patient was seen and identified in the preop holding area , risks and benefits and possible complications of the procedure and alternative were discussed with the patient, and the patient agreed to proceed with the procedure and signed the consent and vital signs monitored during the procedure and fluoroscopy was used to maximize the benefit and accuracy of the needle placement, and sedation was given to decrease patient anxiety, patient was taken to the procedure room and placed in prone position vital signs monitored in the back prepped with chlorhexidine X3 then under strict sterile technique using a right oblique fluoroscopy ,the junction of the transverse process and the superior articulating process of the right L3 , L4 , and L5 vertebra which corresponding to the fluoroscopy image of the eye of the Hermilo dog on the block side for the medial branches and subsequently , after local infiltration of skin and subcu tissuies with Ropivacaine 0.5 % , one mL at each level ,then 22-gauge Quincke-type needles , 3 needle was used , each one of them placed at the junction of the base of the transverse process and the superior articular process at the appropriate level, and the needle was advanced until the periosteum contacted, needle placement confirmed with AP oblique and lateral view and after appropriate needle placement confirmed, and after negative aspiration for heme and CSF and there was no paresthesia 1-1/2 mL of Ropivacaine 0.5% mixed with 20 mg Depo-Medrol , then half mL injected at each level after negative aspiration the needle subsequently removed . At the end of the procedure and the needles removed and a bandage applied after the skin was cleaned the cleaning solution patient taken to recovery room in stable condition and monitors in the recovery room for 20-30 minutes and discharged home in stable condition after discharge criteria met and patient will follow up with the pain clinic in 2-4 weeks
[2023-04-24] MEDS ORDERED: IV FLUID CONTINUATION 1,000 ML IV ONE (09:16)
[2023-04-24 09:35] VITALS: BP 143/79; PULSE 63
--- NOTE | 2023-04-24 09:47 | FL ---
EXAMINATION TYPE: FL guided pain mgmt statistic DATE OF EXAM: 04/24/2023 HISTORY: Fluoroscopy time Total dose area product (DAP) in uGy*m?, mGy*cm? (or similar): 0.68519 IMPRESSION: 1. Fluoroscopy time.
== END 2023-04-24 09:46 | disposition home or self-care (01) ==
LOC: ORPAIN 08:09
PROVIDERS: ATTEND Specialist
DX: M47.816 Spondylosis without myelopathy or radiculopathy, lumbar region (principal); M51.36 Other intervertebral disc degeneration, lumbar region; G89.29 Other chronic pain; I10 Essential (primary) hypertension; K21.9 Gastro-esophageal reflux disease without esophagitis; E78.5 Hyperlipidemia, unspecified; M19.90 Unspecified osteoarthritis, unspecified site; Z88.2 Allergy status to sulfonamides; Z88.1 Allergy status to other antibiotic agents; Z79.899 Other long term (current) drug therapy
CPT/HCPCS: 64493; 64494; J2250; J1030; J3010; J2795

== ENCOUNTER → 2023-05-12 | Outpatient (CLI) | payer MEDICARE, BC ==
--- NOTE | 2023-05-12 13:00 | P.PAINPG ---
PQRS Measure Charge Sheet Comment: HISTORY OF PRESENT ILLNESS: An 78 yr old wheelchair bound female w at side presents today w severe and chronic LBP secondary to severe spinal stenosis, DDD, spondylosis and facet arthropathy without myelopathy for evaluation s/p R MBB L4-L5, L5-S1 #1. Pt states she experienced 100 % pain relief x 6 hrs s/p procedure. Pt states pain level is provoked at 10/10 in intensity, constant, localized in the mid to lower lumbar spine, predominantly axial, achy in character without occasional shooting pain. Pain is provoked by standing/ walking or bending for periods of > 10 min. Pain is alleviated slightly by injections, PT x 4 wks in Fall 2021 for her LEs which provoked her back pain and PT was discontinued, physician guided home stretches for her lumbar spine 5 times weekly since 2021, use of a wheelchair/ cane for ambulatory assistance, medications, topical, repositioning and rest. Oswestry axial pain score at 32. Interventional procedures include GEO L4-L5 x1, BL RFA L2-L5 (Mar 2014) Medications include [place] 7.5/325mg REVIEW OF ORGAN SYSTEMS: CONSTITUTIONAL: No fevers or chills. No recent weight loss. NEUROLOGICAL: + numbness and tingling along the distal extremities. No seizure disorders or headaches. MUSCULOSKELETAL: + pain PSYCHIATRIC: Denies current depression or suicidal thoughts. Physical Examinations : Constitutional : Cooperative , not in acute distress . Neurologic : Cranial nerve II to XII intact. No focal neurological deficits. Psychiatric : alert & oriented x 3. Matching mood & appropriate affect. Judgment & insight intact. Musculoskeletal : Cervical Spine Motor strength in the deltoid and biceps: Normal right side. Normal Left side Motor strength biceps and the wrist extensors: Normal right side . Normal left side Motor strength in the triceps muscle: Normal right side. Normal left side Deep tendon reflexes: Normal at the biceps. Normal at Brachioradialis. Normal at triceps Vertebral body tenderness to deep palpation over Cervical facet loading test: positive bilaterally Spurling test: positive bilaterally Neck distraction test: positive bilaterally Patricia sign: positive bilaterally Lumbar spine Motor strength lower extremities ,thigh and legs 5/5 Right side , 5/5 Left side Deep tendon reflexes : Normal Knee Jerk. Normal Ankle Jerk Vertebral body tenderness over L4 Grijalva Test positive Lumbar facet Loading Test: positive Right L4-L5, L5-S1 / positive Left Range of motion of the lumbar spine Flexion 30 degrees, extension 10 degrees Straight Leg Raise test: Left/ Right positive at 35 degrees Luis test: positive right / positive left. Severe tenderness over the Sacroiliac joint on the Right / Left sides Gaenslen test: positive bilaterally Seated flexion test: positive bilaterally. Sacral spine : Severe tenderness over the Sacroiliac joint: right side / left side Range of motion: Flexion of the lumbar spine <60 degrees Range of motion: Extension of the lumbar spine <20 degrees Gaenslen's Test positive Davide's Test positive Luis test: positive right side / left side Thigh Thrust Test Sacral Thrust Test Imaging: MRI noncontrast of the lumbar spine from 01/20/23 reviewed Assessment/ Plan : Lumbar DDD Recommendation of R MBB L3-L5 #2. May need a series of injections, up until RFA, for optimal pain relief. Risks, benefits of procedure discussed and pt verbalized understanding. Protocol for discontinuation/ continuation of medications lisa procedure discussed. Minimal anesthesia including Versed and Fentanyl may be used, if clinically indicated. All questions answered. I have spent greater than 30 minutes on patient care today. Dr May was available by phone for the evaluation of this patient. The time was used to review the medical records including relevant urine studies and Prescription history (MAPs), review of the available imaging, evaluation and examination of the patient, coordination of care with the medical staff and if applicable referring physicians, as well as creation of the medical record PQRS Narrative: Smoking Status Never smoker Hx Alcohol Use (MH) No Home Medications: Ambulatory Orders ALPRAZolam [Xanax] 0.25 mg PO DAILY PRN 03/17/17 Biotin 5 mg PO DAILY 03/17/17 Omeprazole 40 mg PO DAILY 03/17/17 Sertraline HCl [Zoloft] 50 mg PO DAILY 03/17/17 amLODIPine [Norvasc] 5 mg PO DAILY 03/17/17 Losartan Potassium [Cozaar] 100 mg PO DAILY 07/03/20 Magnesium Chloride [Slow-Mag] 64 mg PO DAILY 07/03/20 Metoprolol Tartrate [Lopressor] 50 mg PO DAILY 07/03/20 Mirabegron [Myrbetriq] 50 mg PO DAILY 07/03/20 Rosuvastatin [Crestor] 10 mg PO DAILY 07/03/20 hydroCHLOROthiazide 25 mg PO DAILY 07/03/20 Loperamide [Imodium] 1 tab PO DIRECTED PRN 03/10/23 HYDROcodone/APAP 7.5-325MG [[place] 7.5-325] 7.5 tab PO Q4H PRN 3 Days #15 tab 03/30/23 Controlled Substance Measures - Controlled Substance Measures Is patient prescribed a controlled substance at discharge?: No
[2023-05-12 13:04] VITALS: BP 137/76; PULSE 61; RESP 16
== END ==
LOC: PNWHC3 12:33
PROVIDERS: ATTEND Specialist
DX: M51.37 Other intervertebral disc degeneration, lumbosacral region (principal); Z88.2 Allergy status to sulfonamides; Z88.1 Allergy status to other antibiotic agents
CPT/HCPCS: 99211

== ENCOUNTER 2023-05-22 06:36 | Day surgery (SDC) | payer MEDICARE, BC ==
[2023-05-22] MEDS ORDERED: LACTATED RINGERS 1,000 ML IV ONE (07:20)
[2023-05-22 07:36] VITALS: RESP 16; TEMP 97.7
[2023-05-22] MEDS ORDERED: LACTATED RINGERS 1,000 ML IV SCH (08:03)
[2023-05-22] MEDS ORDERED: LIDOCAINE 1% (10MG/ML) FOR IV START INTRADERMA PRN (08:03)
[2023-05-22] MEDS ORDERED: fentaNYL (PF) 50 MCG/ML 2 ML AMP ONE (08:04)
[2023-05-22] MEDS ORDERED: MIDAZOLAM 2 MG/2 ML VIAL ONE (08:04)
[2023-05-22] MEDS ORDERED: ROPIVACAINE 5MG/ML 20ML VIAL ONE (08:09)
--- NOTE | 2023-05-22 08:41 | P.PCN ---
Description of Procedure: Preprocedure diagnosis. 1. Lumbar spondylosis with facet joint arthropathy without myelopathy. 2. Lumbar degenerative disc disease. Postprocedure diagnosis. As above. Procedure done. right diagnostic block with local anesthetics at L3, L4, L5 medial branch with fluoroscopic guidance (fluoroscopy images are available in the radiology department) target to the facet joint right L4 5 and L5-S1 levels. Anesthesia. Related anesthesia care as per anesthesia department/ moderate sedation with intravenous Versed 2 mg and fentanyl and local infiltration with local anesthetics. Blood loss. Minimal. Indication. The patient has low back pain secondary to lumbar facet joint arthropathy. Discussed the procedure and alternative and complications which includes infection, bleeding, nerve damage, aggravation of pain. Patient understands and all questions were answered. Patient iunderstands that if any pain relief occurs it will last for a few hours to a few days maximum. Procedure description. After getting consent patient was taken in the OR in prone position. Back prepped with chlorhexidine and draped in sterile fashion. After injecting 5 mL of plain 1% lidocaine subcutaneously, a 22-gauge spinal needle was introduced under tunnel vision of the fluoroscope at the junction of the superior articular process with right ala of the sacrum. With slight right oblique fluoroscope, after injecting 5 mL of plain 1% lidocaine subcutaneously, a 22-gauge spinal needle was introduced under tunnel vision of the fluoroscope at the junction of the superior articular process with right L5 transverse process, junction of the superior articular process with the right L4 transverse process. After needle position confirmation by AP and crosstable lateral view, after negative aspiration, half milliliters of 0.5% ropivacaine were injected at each point. Total 1.5 mL of 0.5% ropivacaine was injected. Spinal needles were taken out and bandages were applied. Disposition. Patient tolerated the procedure well. No complication. Discharged home in stable condition.
[2023-05-22 08:52] VITALS: BP 158/73; PULSE 58
[2023-05-22] MEDS ORDERED: IV FLUID CONTINUATION 700 ML IV ONE (09:08)
--- NOTE | 2023-05-22 10:26 | FL ---
EXAMINATION TYPE: FL guided pain mgmt statistic DATE OF EXAM: 05/22/2023 HISTORY: Fluoroscopy time Total dose area product (DAP) in uGy*m?, mGy*cm? (or similar): 0.37612 IMPRESSION: 1. Fluoroscopy time.
== END 2023-05-22 09:27 | disposition home or self-care (01) ==
LOC: ORPAIN 06:36
PROVIDERS: ATTEND Pain Medicine Interventional Pain Medicine
DX: M51.36 Other intervertebral disc degeneration, lumbar region (principal); M47.816 Spondylosis without myelopathy or radiculopathy, lumbar region; E11.9 Type 2 diabetes mellitus without complications; K21.9 Gastro-esophageal reflux disease without esophagitis; I10 Essential (primary) hypertension; E78.5 Hyperlipidemia, unspecified; Z79.01 Long term (current) use of anticoagulants; Z79.899 Other long term (current) drug therapy; Z88.1 Allergy status to other antibiotic agents; Z88.2 Allergy status to sulfonamides; Z87.440 Personal history of urinary (tract) infections
CPT/HCPCS: 64493; 64494; J2250; J3010; J2795

== ENCOUNTER → 2023-06-17 | Outpatient (CLI) | payer MEDICARE, BC ==
[2023-06-17 11:05] VITALS: BP 128/62; PULSE 66; RESP 15; TEMP 98.6
--- NOTE | 2023-06-17 14:32 | P.PAINPG ---
PQRS Measure Charge Sheet Comment: HISTORY OF PRESENT ILLNESS: An 78 yr old wheelchair bound female w at side presents today w severe and chronic LBP x 14 yrs secondary to severe spinal stenosis, DDD, spondylosis and facet arthropathy without myelopathy for evaluation s/p R MBB L4-L5, L5-S1 #2. Pt states she experienced 80 % pain relief x 2 days s/p procedure. Pt states pain level is provoked at 6/10 in intensity, constant, localized in the mid to lower lumbar spine, predominantly axial, achy in character without occasional shooting pain. Pain is provoked by standing/ walking or bending for periods of > 10 min. Pain is alleviated slightly by injections, PT x 4 wks in Fall 2021 for her LEs which provoked her back pain and PT was discontinued, physician guided home stretches for her lumbar spine 5 times weekly since 2021, use of a wheelchair/ cane for ambulatory assistance, medications, topical, repositioning and rest. Oswestry axial pain score at 30. Interventional procedures include GEO L4-L5 x1, BL RFA L2-L5 (Mar 2014), R MBB L3-L5 x2 Medications include [place] 7.5/325mg REVIEW OF ORGAN SYSTEMS: CONSTITUTIONAL: No fevers or chills. No recent weight loss. NEUROLOGICAL: + numbness and tingling along the distal extremities. No seizure disorders or headaches. MUSCULOSKELETAL: + pain PSYCHIATRIC: Denies current depression or suicidal thoughts. Physical Examinations : Constitutional : Cooperative , not in acute distress . Neurologic : Cranial nerve II to XII intact. No focal neurological deficits. Psychiatric : alert & oriented x 3. Matching mood & appropriate affect. Judgment & insight intact. Musculoskeletal : Cervical Spine Motor strength in the deltoid and biceps: Normal right side. Normal Left side Motor strength biceps and the wrist extensors: Normal right side . Normal left side Motor strength in the triceps muscle: Normal right side. Normal left side Deep tendon reflexes: Normal at the biceps. Normal at Brachioradialis. Normal at triceps Vertebral body tenderness to deep palpation over Cervical facet loading test: positive bilaterally Spurling test: positive bilaterally Neck distraction test: positive bilaterally Patricia sign: positive bilaterally Lumbar spine Motor strength lower extremities ,thigh and legs 5/5 Right side , 5/5 Left side Deep tendon reflexes : Normal Knee Jerk. Normal Ankle Jerk Vertebral body tenderness over L4 Grijalva Test positive Lumbar facet Loading Test: positive Right L4-L5, L5-S1 / positive Left Range of motion of the lumbar spine Flexion 30 degrees, extension 10 degrees Straight Leg Raise test: Left/ Right positive at 35 degrees Luis test: positive right / positive left. Severe tenderness over the Sacroiliac joint on the Right / Left sides Gaenslen test: positive bilaterally Seated flexion test: positive bilaterally. Sacral spine : Severe tenderness over the Sacroiliac joint: right side / left side Range of motion: Flexion of the lumbar spine <60 degrees Range of motion: Extension of the lumbar spine <20 degrees Gaenslen's Test positive Davide's Test positive Luis test: positive right side / left side Thigh Thrust Test Sacral Thrust Test Imaging: MRI noncontrast of the lumbar spine from 01/20/23 reviewed Assessment/ Plan : Lumbar DDD Recommendation of R RFA L3-L5. Exhibited optimal pain relief w previous MBB procedures. Risks, benefits of procedure discussed and pt verbalized understanding. Protocol for discontinuation/ continuation of medications lisa procedure discussed. Minimal anesthesia including Versed and Fentanyl may be used, if clinically indicated. All questions answered. I have spent greater than 30 minutes on patient care today. Dr May was available by phone for the evaluation of this patient. The time was used to review the medical records including relevant urine studies and Prescription history (MAPs), review of the available imaging, evaluation and examination of the patient, coordination of care with the medical staff and if applicable referring physicians, as well as creation of the medical record PQRS Narrative: Smoking Status Never smoker Hx Alcohol Use (MH) No Home Medications: Ambulatory Orders ALPRAZolam [Xanax] 0.25 mg PO DAILY PRN 03/17/17 Biotin 5 mg PO DAILY 03/17/17 Omeprazole 40 mg PO DAILY 03/17/17 Sertraline HCl [Zoloft] 50 mg PO DAILY 03/17/17 amLODIPine [Norvasc] 5 mg PO DAILY 03/17/17 Losartan Potassium [Cozaar] 100 mg PO DAILY 07/03/20 Magnesium Chloride [Slow-Mag] 64 mg PO DAILY 07/03/20 Metoprolol Tartrate [Lopressor] 50 mg PO DAILY 07/03/20 Mirabegron [Myrbetriq] 50 mg PO DAILY 07/03/20 Rosuvastatin [Crestor] 10 mg PO DAILY 07/03/20 hydroCHLOROthiazide 25 mg PO DAILY 07/03/20 Loperamide [Imodium] 1 tab PO DIRECTED PRN 03/10/23 HYDROcodone/APAP 7.5-325MG [[place] 7.5-325] 7.5 tab PO Q4H PRN 3 Days #15 tab 03/30/23 Controlled Substance Measures - Controlled Substance Measures Is patient prescribed a controlled substance at discharge?: No
== END ==
LOC: PNWHC3 10:42
PROVIDERS: ATTEND Specialist
DX: M51.37 Other intervertebral disc degeneration, lumbosacral region (principal); Z88.1 Allergy status to other antibiotic agents; Z88.2 Allergy status to sulfonamides
CPT/HCPCS: 99211

== ENCOUNTER 2023-06-26 06:11 | Day surgery (SDC) | payer MEDICARE, BC ==
[2023-06-26] MEDS ORDERED: LACTATED RINGERS 1,000 ML IV SCH (06:14)
[2023-06-26 06:49] VITALS: TEMP 96.9
[2023-06-26] MEDS ORDERED: fentaNYL (PF) 50 MCG/ML 2 ML AMP ONE (07:19)
[2023-06-26] MEDS ORDERED: ONDANSETRON 4 MG/2 ML VIAL ONE (07:19)
[2023-06-26] MEDS ORDERED: MIDAZOLAM 2 MG/2 ML VIAL ONE (07:19)
[2023-06-26] MEDS ORDERED: ROPIVACAINE 5MG/ML 20ML VIAL ONE (07:21)
[2023-06-26] MEDS ORDERED: TRIAMCINOLONE ACETONIDE 40 MG/ML 1 ML VIAL ONE (07:21)
--- NOTE | 2023-06-26 07:42 | P.PCN ---
Date of Procedure: 06/26/23 Surgeon: Chidi Irvin Pathology: none sent Condition: stable Disposition: PACU Description of Procedure: PREOPERATIVE DIAGNOSIS: Lumbar spondylosis without myelopathy POSTOPERATIVE DIAGNOSIS: Lumbar spondylosis without myelopathy PROCEDURES : Right Radiofrequency thermocoagulation L4-L5, and L5-S1 medial branch, with fluoroscopic guidance ANESTHESIA: Local with lidocaine 1% using 25-gauge needle and IV moderate conscious sedation by the anesthesia Department Physician: Chidi Irvin MD EBL: Minimal PROCEDURE INDICATION: The patient with low back pain secondary to lumbar facet arthropathy who had significant relief of pain with previous diagnostic lumbar medial branch block with Ropivacaine0.5%. PROCEDURE DESCRIPTION / TECHNIQUE: The patient was seen and identified in the preoperative area. Risks, benefits, complications, including but not limited to risk of infection ,bleeding , allergic reactions to the medications and no complete pain relief , and alternatives were discussed with the patient, the patient agreed to proceed with the procedure and signed the consent. IV was started. Vital signs remained stable throughout the procedure. Patient was taken to the OR and time out was completed. The patient was placed in the prone position on the procedure table. The lumber area was prepped and draped in the usual sterile fashion. . Vital signs were closely monitored during the procedure .IV sedation was used during the procedure to decrease patients anxiety. The target points were identified as follows: For the L5-S1 level which corresponds to the dorsal ramus of L5 the target point was at the superior medial aspect of the sacral ala on the Rt side of the spine on the AP view of fluoroscopy and for the L3, and L4 medial branches the target points were at the connection between the transverse process and the superior articular process of L4, and L5 vertebra respectively on the Rt oblique view of fluoroscopy. skin was marked, and localized with 1% lidocaineat these points. Subsequently, an 18 [id number] radiofrequency needles with a 10-mm curved active tips were advanced guided by fluoroscopy to each of the target points mentioned above in a superior medial direction to get the active tips as parallel as possible to the medial branches tracks. AP, oblique, and lateral views of fluoroscopy were used to verify needle tips position. Each level then underwent motor testing at 2.5 Hz and 0 to 3 volt with local stimulation, but no radicular symptoms down the legs. I then injected 1 mL of lidocaine 1% in each needle before starting radiofrequency thermocoagulation at 80 degrees celsius for 90 seconds. After that I injected 1 ml of PF Ropivacaine 0.5%(3 mls) with 40 mg of Kenalog, 1 mL of this mixture was given in each needle before taking the needles out intact. At the end of the procedure, the skin was cleansed and bandages were applied. A copy of needle placement fluoroscopy was saved on the C-arm machine. COMPLICATIONS: No acute complications. DISPOSITION / PLANS: The patient was placed in a supine position and transferred to the recovery area in a stable condition for observation and was discharged from the recovery room after meeting discharge criteria. Home discharge instructions given to the patient by the staff. The patient was reexamined prior to discharge. The patient will schedule a follow up in the clinic in 2-4 weeks.
[2023-06-26] MEDS ORDERED: IV FLUID CONTINUATION 800 ML IV ONE (07:47)
--- NOTE | 2023-06-26 07:51 | FL ---
EXAMINATION TYPE: FL guided pain mgmt statistic DATE OF EXAM: 06/26/2023 FLUOROSCOPY Fluoroscopy time of 18 seconds was used during M47.816. 3 image/s document/s the procedure. .[id number] mGym2
[2023-06-26 08:27] VITALS: BP 128/60; PULSE 51; RESP 16
== END 2023-06-26 08:21 | disposition home or self-care (01) ==
LOC: ORPAIN 06:11
PROVIDERS: ATTEND Anesthesiology
DX: M47.816 Spondylosis without myelopathy or radiculopathy, lumbar region (principal); I10 Essential (primary) hypertension; E78.5 Hyperlipidemia, unspecified; K21.9 Gastro-esophageal reflux disease without esophagitis; Z79.899 Other long term (current) drug therapy; Z88.1 Allergy status to other antibiotic agents; Z88.2 Allergy status to sulfonamides
CPT/HCPCS: 64635; 64636; J2250; J3301; J2405; J3010; J2795

== ENCOUNTER → 2023-07-23 | Outpatient (CLI) | payer MEDICARE, BC ==
[2023-07-23 11:55] VITALS: BP 152/98; PULSE 51; RESP 16; TEMP 97.1
--- NOTE | 2023-07-23 13:42 | P.PAINPG ---
PQRS Measure Charge Sheet Comment: HISTORY OF PRESENT ILLNESS: An 78 yr old wheelchair bound female w at side presents today w severe and chronic LBP x 14 yrs secondary to severe spinal stenosis, DDD, spondylosis and facet arthropathy without myelopathy for evaluation s/p R RFA L4-L5, L5-S1. Pt states she experienced 85 % pain relief s/p procedure. Pt states pain level is provoked at 6/10 in intensity, constant, localized in the mid to lower lumbar spine, predominantly axial, achy in character without shooting pain. Pain is provoked by standing/ walking or bending for periods of > 10 min. Pain is alleviated slightly by injections, PT x 4 wks in Fall 2021 for her LEs which provoked her back pain and PT was discontinued, physician guided home stretches for her lumbar spine 5 times weekly since 2021, use of a wheelchair/ cane for ambulatory assistance, medications, topical, repositioning and rest. Oswestry axial pain score at 30. Interventional procedures include GEO L4-L5 x1, BL RFA L2-L5 (Mar 2014), R RFA L3-L5 (Jun 2023) Medications include [place] 7.5/325mg, Zanaflex (ineffective) REVIEW OF ORGAN SYSTEMS: CONSTITUTIONAL: No fevers or chills. No recent weight loss. NEUROLOGICAL: + numbness and tingling along the distal extremities. No seizure disorders or headaches. MUSCULOSKELETAL: + pain PSYCHIATRIC: Denies current depression or suicidal thoughts. Physical Examinations : Constitutional : Cooperative , not in acute distress . Neurologic : Cranial nerve II to XII intact. No focal neurological deficits. Psychiatric : alert & oriented x 3. Matching mood & appropriate affect. Judgment & insight intact. Musculoskeletal : Cervical Spine Motor strength in the deltoid and biceps: Normal right side. Normal Left side Motor strength biceps and the wrist extensors: Normal right side . Normal left side Motor strength in the triceps muscle: N ormal right side. Normal left side Deep tendon reflexes: Normal at the biceps. Normal at Brachioradialis. Normal at triceps Vertebral body tenderness to deep palpation over Cervical facet loading test: positive bilaterally Spurling test: positive bilaterally Neck distraction test: positive bilaterally Patricia sign: positive bilaterally Lumbar spine Motor strength lower extremities ,thigh and legs 5/5 Right side , 5/5 Left side Deep tendon reflexes : Normal Knee Jerk. Normal Ankle Jerk Vertebral body tenderness over L4 Grijalva Test positive Taut bands w twitch response over R L4- S2 Lumbar facet Loading Test: positive Right L4-L5, L5-S1 / positive Left Range of motion of the lumbar spine Flexion 30 degrees, extension 10 degrees Straight Leg Raise test: Left/ Right positive at 35 degrees Luis test: positive right / positive left. Severe tenderness over the Sacroiliac joint on the Right / Left sides Gaenslen test: positive bilaterally Seated flexion test: positive bilaterally. Sacral spine : Severe tenderness over the Sacroiliac joint: right side / left side Range of motion: Flexion of the lumbar spine <60 degrees Range of motion: Extension of the lumbar spine <20 degrees Gaenslen's Test positive Davide's Test positive Luis test: positive right side / left side Thigh Thrust Test Sacral Thrust Test Imaging: MRI noncontrast of the lumbar spine from 01/20/23 reviewed Assessment/ Plan : Lumbar DDD, Lumbosacral spasms Recommendation of TENS unit use at home M51.36. Script provided. All questions answered. I have spent greater than 30 minutes on patient care today. Dr May was available by phone for the evaluation of this patient. The time was used to review the medical records including relevant urine studies and Prescription history (MAPs), review of the available imaging, evaluation and examination of the patient, coordination of care with the medical staff and if applicable referring physicians, as well as creation of the medical record PQRS Narrative: Smoking Status Never smoker Hx Alcohol Use (MH) No Home Medications: Ambulatory Orders ALPRAZolam [Xanax] 0.25 mg PO DAILY PRN 03/17/17 Biotin 5 mg PO DAILY 03/17/17 Omeprazole 40 mg PO DAILY 03/17/17 Sertraline HCl [Zoloft] 50 mg PO DAILY 03/17/17 amLODIPine [Norvasc] 5 mg PO DAILY 03/17/17 Losartan Potassium [Cozaar] 100 mg PO DAILY 07/03/20 Magnesium Chloride [Slow-Mag] 64 mg PO HS 07/03/20 Metoprolol Tartrate [Lopressor] 50 mg PO DAILY 07/03/20 Mirabegron [Myrbetriq] 50 mg PO DAILY 07/03/20 Rosuvastatin [Crestor] 10 mg PO DAILY 07/03/20 hydroCHLOROthiazide 25 mg PO DAILY 07/03/20 Loperamide [Imodium] 1 tab PO DIRECTED PRN 03/10/23 HYDROcodone/APAP 7.5-325MG [[place] 7.5-325] 7.5 tab PO DAILY PRN 06/25/23 Lidocaine 4% Patch 1 patch TOPICAL DIRECTED PRN 06/25/23 allopurinoL 100 mg PO DAILY 06/25/23 Controlled Substance Measures - Controlled Substance Measures Is patient prescribed a controlled substance at discharge?: No
== END ==
LOC: PNWHC3 10:51
PROVIDERS: ATTEND Specialist
DX: M51.37 Other intervertebral disc degeneration, lumbosacral region (principal); M62.830 Muscle spasm of back; Z88.1 Allergy status to other antibiotic agents; Z88.2 Allergy status to sulfonamides
CPT/HCPCS: 99211

== ENCOUNTER → 2023-08-21 | Outpatient (CLI) | payer MEDICARE, BC ==
--- NOTE | 2023-08-21 10:56 | XR ---
EXAMINATION TYPE: XR foot complete LT DATE OF EXAM: 08/21/2023 10:52 AM CLINICAL INDICATION:Female, 78 years old with history of M79.672 Left foot pain; [facility] COMPARISON: None TECHNIQUE: XR foot complete LT examined in the AP, oblique, and lateral projections. FINDINGS: No evidence of any acute osseous pathology. No evidence of soft tissue swelling. Joints are preserve d. Multifocal degeneration changes throughout the joints of the foot with osteophyte formation and edouard int space narrowing. Calcaneal plantar spurring. IMPRESSION: 1. No evidence of acute fracture. 2. The focal degeneration changes which are mild.
== END | disposition home or self-care (01) ==
LOC: RADXRMAIN 10:35
PROVIDERS: ATTEND Internal Medicine
DX: M79.672 Pain in left foot (principal)

== ENCOUNTER → 2023-08-21 | Outpatient (CLI) | payer MEDICARE, BC ==
--- NOTE | 2023-08-21 10:40 | US ---
EXAMINATION TYPE: US kidneys/renal and bladder DATE OF EXAM: 08/21/2023 COMPARISON: CT 2018 CLINICAL INDICATION: Female, 78 years old with history of N18.9 CHRONIC KIDNEY DISEASE, UNSPECIFIED; Patient has left sided flank pain. History of prior bowel obstruction with surgery. EXAM MEASUREMENTS: Right Kidney: 8.2 x 4.0 x 4.3 cm Left Kidney: 8.8 x 4.5 x 3.7 cm *Limited due to overlying bowel gas and patient body habitus Right Kidney: No hydronephrosis or masses seen as best visualized. Inferior pole obscured by gas. Left Kidney: There is a 1.3 x 1.3 x 1.2cm hypoechoic area seen in the superior pole of the left kidne y. Bladder: WNL. Large amount of peristalsing bowel seen near the bladder. Bilateral Jets seen: Yes *Incidental calcifications seen within the spleen IMPRESSION: 1. No evidence of hydronephrosis or shadowing renal stones. 2. Small left renal cyst.
== END | disposition home or self-care (01) ==
LOC: RADUSWWP 09:52
PROVIDERS: ATTEND Internal Medicine
DX: N18.9 Chronic kidney disease, unspecified (principal); N28.1 Cyst of kidney, acquired
CPT/HCPCS: 76770

== ENCOUNTER → 2024-04-06 | Outpatient (CLI) | payer MEDICARE, BC ==
--- NOTE | 2024-04-06 14:26 | BD ---
EXAMINATION TYPE: Axial Bone Density DATE OF EXAM: 04/06/2024 CLINICAL HISTORY: 79 years old Female. ICD-10 CODE: Z12.31 SCR MAMMO M81.0 , Z78.0 Height: 56 Weight: 137 FRAX RISK QUESTIONS: History of Fracture in Adulthood: yes 3. Menopause before 45: no RISK FACTORS HISTORY OF: foot fx, height loss, dowager's hump, bent over, spinal stenosis, Spine injections and ablation, MEDICATIONS: bp meds, reflux meds, magnesium, vit d EXAM MEASUREMENTS: Bone mineral densitometry was performed using the [employer] System. Bone mineral density as measured about the Lumbar spine is: ----- L1-L4(G/cm2): 1.203 T Score Values are as follows: ----- L1: -1.3 ----- L2: -0.6 ----- L3: 1.5 ----- L4: 0.8 ----- L1-L4: 0.2 Z Score Values are as follows: ----- L1: 0.6 ----- L2: 1.4 ----- L3: 3.5 ----- L4: 2.7 ----- L1-L4: 2.1 Bone mineral density has: Increased 11.2% since study of: 04.04.2022 Bone mineral density about the R hip (g/cm2): 0.825 Bone mineral density about the L hip (g/cm2): 0.739 T Score values are as follows: -----R Neck: -1.7 -----L Neck: -2.4 -----R Total: -1.5 -----L Total: -2.1 Z Score values are as follows: -----R Neck: 0.6 -----L Neck: -0.1 -----R Total: 0.7 -----L Total: 0.0 Bone mineral density has: Decreased -2.5% since study of: 04.04.2022 FRAX%s: The graph provided illustrates a 25.2% chance for a major osteoporotic fx and a 7.9% chance f or the hips probability for fx in 10 years time. IMPRESSION: Osteopenia (T Score between -2.5 and -1). Measurements are bordering on osteoporosis at the left hip. There is slightly increased risk of fracture and the patient may be considered for treatment. Re-Screen 2-5 years. NOTE: T-SCORE=SD OF THE YOUNG ADULT MEAN. [facility], , 04/06/2024 2:23 PM
--- NOTE | 2024-04-07 11:54 | MM ---
Reason for Exam: Screening (asymptomatic). Last mammogram was performed 2 year(s) and 0 month(s) ago. Patient History: Menarche at age 10. First Full-Term at age 15. Left ovary removed at age 38. Right ovary removed at age 38. Hysterectomy at age 38. Postmenopausal. Patient used Estrogen for 18 years. Excisional Biopsy on the Right side. Excisional Biopsy on the Left side. Excisional Biopsy on the Left side. Mother had breast cancer, age 45. Risk Values: Cathy 5 year model risk: 4.5%. NCI Lifetime model risk: 6.4%. Prior Study Comparison: 06/07/2019 Bilateral Screening Mammogram, [facility]. 11/28/2020 Bilateral Screening Mammogram, [facility]. 04/04/2022 Bilateral MG 3D screening mammo w/cad, [facility]. Tissue Density: There are scattered areas of fibroglandular density. Findings: Analyzed By CAD. Right breast biopsy clip. Right breast: There is no suspicious group of microcalcifications or new suspicious mass. Benign-appearing calcifications right breast. Left breast: There is no suspicious group of microcalcifications or new suspicious mass. Benign-appearing calcifications right breast. Overall Assessment: Negative, BI-RAD 1 Management: Screening Mammogram of both breasts in [address] [facility] will attempt to contact patient to return for supplemental views and ultrasound if indicated. Patient should continue monthly self-breast exams. A clinical breast exam by your physician is recommended on an annual basis. This exam should not preclude additional follow-up of suspicious palpable abnormalities. Note on Cathy scores and lifetime risk: 1. A Cathy score greater than 3% is considered moderate risk. If this is the case, consider specialist referral to assess eligibility for a risk reducing agent. 2. If overall lifetime risk for the development of breast cancer is 20% or higher, the patient may qualify for future screening with alternating mammogram and breast MRI. [facility], , 04/07/2024 11:51 AM. Electronically signed and approved by: Rico Hood DO
== END | disposition home or self-care (01) ==
LOC: RADMAMWWP 10:28
PROVIDERS: ATTEND Internal Medicine
DX: Z12.31 Encounter for screening mammogram for malignant neoplasm of breast (principal); R92.323 Mammographic fibroglandular density, bilateral breasts; M81.0 Age-related osteoporosis without current pathological fracture; M85.89 Other specified disorders of bone density and structure, multiple sites; Z78.0 Asymptomatic menopausal state; Z80.3 Family history of malignant neoplasm of breast; Z90.722 Acquired absence of ovaries, bilateral
CPT/HCPCS: 77063; 77067; 77080

== ENCOUNTER 2024-04-19 13:43 | Emergency (ER) | payer OTHER, MEDICARE, BC ==
[2024-04-19 14:06] VITALS: TEMP 98.6
[2024-04-19 15:04] VITALS: RESP 18
[2024-04-19] MEDS: MORPHINE SULFATE 4 MG/ML SYRINGE IVP STA (15:30)
--- NOTE | 2024-04-19 16:09 | CT ---
EXAMINATION TYPE: CT brain cspine wo con DATE OF EXAM: 04/19/2024 3:57 PM COMPARISON: None available. CLINICAL INDICATION: Female, 79 years old with history of head injury, head ache; fall, headache TECHNIQUE: Brain: Multiple axial CT images of the brain were obtained without IV contrast. Cspine: Axial CT images from the skull base to the inferior aspect of T2 we obtained without intraven ous contrast. Coronal and sagittal reformatted images were also reviewed. . CT DLP: 1364.6 mGycm, Automated exposure control for dose reduction was used. FINDINGS: Brain: No acute intracranial hemorrhage, midline shift or significant mass effect. Ventricles and sulci mild ly prominent, possibly related to underlying generalized cerebral volume loss. Basal cisterns appear patent. Previous bilateral cataract lens extraction noted. No sizable extra-axial fluid collection. G ray-white matter differentiation appears grossly preserved. Patchy periventricular and subcortical wh ite matter hypoattenuation likely reflecting chronic microvascular ischemic disease. Partially visual ized mucosal retention cysts in the left maxillary sinus. Mastoid air cells are patent. Scattered eth moid air cell mucosal thickening. No depressed calvarial fracture. Cervical spine: Fracture: None. Osseous structures: Unremarkable Vertebral alignment: Straightening of the normal cervical spine lordotic curvature. Minimal anterolis thesis of C3 on C4. Spinal canal/Neural Foramina: Multilevel facet arthropathy and uncovertebral hypertrophy contribute t o varying degrees of neural foraminal and spinal canal narrowing. Severe multilevel intervertebral di sc space loss. Neck soft tissues: Prevertebral soft tissues are within normal limits. Other: The airway is patent. The lung apices are clear. IMPRESSION: 1. No acute intracranial abnormality. 2. No acute fracture or traumatic subluxation of the cervical spine. [facility], , 04/19/2024 4:07 PM
--- NOTE | 2024-04-19 16:32 | XR ---
EXAMINATION TYPE: XR pelvis AP view DATE OF EXAM: 04/19/2024 4:29 PM COMPARISON: None CLINICAL INDICATION: Female, 79 years old with history of fall, pain; [facility] TECHNIQUE: XR pelvis AP view, examined in a single projection. FINDINGS: There is no evidence of fracture or dislocation. There is no soft tissue abnormality. No a bnormal calcifications are present. The spine appears intact. The hips appear intact. Osteophyte form ation of the superior acetabulum bilaterally with mild joint space narrowing. Scoliosis changes of the spine. IMPRESSION: No acute osseous pathology. [facility], , 04/19/2024 4:30 PM
--- NOTE | 2024-04-19 16:34 | XR ---
EXAMINATION TYPE: XR shoulder complete RT DATE OF EXAM: 04/19/2024 4:29 PM COMPARISON: None CLINICAL INDICATION: Female, 79 years old with history of right shoulder pain, fall; TECHNIQUE: XR shoulder complete RT; examined in AP, internally rotated and scapular Y projections. FINDINGS: No evidence of acute osseous pathology, joint dislocation, or soft tissue swelling. The remaining po rtions of the visualized chest are unremarkable. Degeneration changes of the acromion, distal clavic le with osteophyte formation. There is osteophyte formation of the glenoid and humeral head. There is joint space narrowing of glenohumeral joint. IMPRESSION: 1. No acute osseous pathology. 2. Mild shoulder osteoarthrosis. [facility], Workstation: [id number], 04/19/2024 4:31 PM
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
[2024-04-19 17:33] VITALS: BP 133/68; PULSE 58
== END 2024-04-19 17:33 | disposition home or self-care (01) ==
LOC: EC 13:43
DX: S09.90XA Unspecified injury of head, initial encounter (principal); G44.309 Post-traumatic headache, unspecified, not intractable; M53.3 Sacrococcygeal disorders, not elsewhere classified; Z88.2 Allergy status to sulfonamides; Z88.1 Allergy status to other antibiotic agents; V43.52XA Car driver injured in collision with other type car in traffic accident, initial encounter
CPT/HCPCS: 72170; 73030; 72125; 70450; 99284; 96374; J2270

== ENCOUNTER → 2024-12-22 | Outpatient (CLI) | payer MEDICARE, BC ==
--- NOTE | 2024-12-22 15:50 | XR ---
EXAMINATION TYPE: XR Hip Complete RT DATE OF EXAM: 12/22/2024 3:22 PM COMPARISON: 04/19/2024 CLINICAL INDICATION: Female, 79 years old with history of M25.551 Right hip pain; PHH, pain TECHNIQUE: XR Hip Complete RT; Frontal and lateral views FINDINGS: No evidence for acute process, joint dislocation or significant soft tissue swelling. Osteo phyte formation of the superior acetabulum of the hip. There is mild joint space narrowing. Atheroscl erosis of the arterial vasculature. Pelvic fluid was present. IMPRESSION: 1. No evidence for acute process. 2. Moderate hip osteoarthrosis. [facility], , 12/22/2024 3:48 PM
== END | disposition home or self-care (01) ==
LOC: RADXRMAIN 14:59
PROVIDERS: ATTEND Internal Medicine
DX: M16.11 Unilateral primary osteoarthritis, right hip (principal)
CPT/HCPCS: 73502